=== PATIENT | male | born 2005 | race Two or more races ===

== ENCOUNTER 2023-07-02 16:29 | Emergency (ER) | payer MEDICAID ==
[~2023-07-02] VITALS: Ht 177.8 cm; Wt 90.9 kg
[2023-07-02 16:40] VITALS: TEMP 98.1
[2023-07-02] MEDS: LORazepam 2MG/ML-1ML VIAL IV ONE (16:45)
[2023-07-02 17:00] VITALS: PULSE 99; RESP 14; O2SAT 100
[2023-07-02 17:15] LABS: Basophils # (auto) 0.1 10 ^3/uL (0-0.2); Basophils % (auto) 0.9 % (0.0-2.0); Eosinophils # (auto) 0.2 10 ^3/uL (0-0.8); Hematocrit 50.1 % (41.0-53.0); Hemoglobin 16.4 g/dL (13.5-17.5); Lymphocytes # (auto) 2.3 10 ^3/uL (0.4-5.4); Lymphocytes % (auto) 35.6 % (10.0-50.0); Mean Corpuscular Hemoglobin 29.8 pg (28.0-32.0); Mean Corpuscular Hgb Conc. 32.7 g/dL (32.0-36.0); Mean Corpuscular Volume 91.3 fL (80.0-100.0); Monocytes # (auto) 0.5 10 ^3/uL (0-1.3); Monocytes % (auto) 8.1 % (0.0-12.0); Neutrophils # (auto) 3.4 10 ^3/uL (1.6-8.6); Neutrophils % (auto) 52.4 % (37.0-80.0); Nucleated Red Blood Cells % 0.3 %; Red Blood Cells 5.49 10^6/uL (4.5-5.90); Red Cell Distribution Width 12.9 % (11.8-14.3); White Blood Cell 6.5 10^3/uL (4.4-10.8)
[2023-07-02 17:42] LABS: Chloride 106 mmol/L (98-107); Sodium 140 mmol/L (136-145)
[2023-07-02 17:43] LABS: Anion Gap 6 (5-15); Calcium 10.1 mg/dL (8.5-10.1); Carbon Dioxide 28 mmol/L (20-30)
[2023-07-02 17:48] LABS: BUN/Creatinine Ratio 12.2 (10.0-20.0); Blood Urea Nitrogen 10 mg/dL (9-23); Glucose 99 mg/dL (74-106)
[2023-07-02 18:20] VITALS: BP 106/79; PULSE 100; RESP 19; O2SAT 95
== END 2023-07-02 18:39 | disposition home or self-care (01) ==
LOC: ER 16:29
DX: G40.909 Epilepsy, unspecified, not intractable, without status epilepticus (principal)
CPT/HCPCS: 36415; 80048; 85025

== ENCOUNTER 2024-01-26 14:09 | Emergency (ER) | payer MEDICAID ==
[~2024-01-26] VITALS: Ht 172.7 cm; Wt 94.5 kg
[2024-01-26 14:50] VITALS: PULSE 96; RESP 13; O2SAT 99
[2024-01-26] MEDS: SODIUM CHLORIDE 0.9% 1,000 ML IV ONE ×2 (15:39)
--- NOTE | 2024-01-26 15:43 | ED.PDOC ---
HPI (NEURO) HPI Comments 18 y.o male with PMH of autism, ADHD and seizures, presents to the ED via EMS for an evaluation of a near seizure episode. Patient called 911 earlier today after experiencing an aura, never had a seizure on scene with EMS but upon ED arrival, when questioning patient, he suddenly had a blank stare and became non verbal. At bedside, patient states after calling 911 he is unable to recollect events. Patient has no complaints at this time. Chief Complaint: Seizure Time Seen by MD: 15:05 Primary Care Provider: UNKNOWN Reviewed Notes: Nurses Notes, Production Estimator Notes, Medications, Allergies Information Source: Emergency Med Personnel Mode of Arrival: EMS Severity: Moderate Timing: Hours Duration: Since onset Onset: At rest Symptoms: None Before: Aura During: Awake History of: Seizure Disorder Associated Signs and Symptoms: Aura: Visual Past Medical History PAST MEDICAL HISTORY: Seizures Past Medical History (Other): ADHD and Autism Surgical History: Denies all surgeries Family History Family History: No family hx of Cancer Social History Smoker: Non-Smoker Alcohol: Denies ETOH Use Drugs: Denies Drug Use Lives In: Home Constitutional: denies: chills, diaphoresis, fatigue, fever, malaise, sweats, weakness, others EENTM: denies: blurred vision, double vision, ear bleeding, ear discharge, ear drainage, ear pain, ear ringing, eye pain, eye redness, hearing loss, mouth pain, mouth swelling, nasal discharge, nose bleeding, nose congestion, nose pain, photophobia, tearing, throat pain, throat swelling, voice changes, others Respiratory: denies: cough, hemoptysis, orthopnea, SOB at rest, shortness of breath, SOB with excertion, stridor, wheezing, others Cardiovascular: denies: chest pain, dizzy spells, diaphoresis, Dyspnea on exe rtion, edema, irregular heart beat, left arm pain, lightheadedness, palpitations, PND, syncope, others Gastrointestinal: denies: abdomen distended, abdominal pain, blood streaked bowels, constipated, diarrhea, dysphagia, difficulty swallowing, hematemesis, melena, nausea, poor appetite, poor fluid intake, rectal bleeding, rectal pain, vomiting, others Genitourinary: denies: burning, dysuria, flank pain, frequency, hematuria, incontinence, penile discharge, penile sore, pain, testicle pain, testicle swelling, urgency, others Neurological: denies: dizziness, fainting, headache, left sided numbness, left sided weakness, numbness, paresthesia, pre-existing deficit, right sided numbness, right sided weakness, seizure, speech problems, tingling, tremors, weakness, others Musculoskeletal: denies: back pain, gout, joint pain, joint swelling, muscle pain, muscle stiffness, neck pain, others Integumetry: denies: bruises, change in color, change in hair/nails, dryness, laceration, lesions, lumps, rash, wounds, others Allergic/Immunocompromised: denies: Difficulty Healing, Frequent Infections, Hives, Itching, others Hematologic/Lymphatic: denies: anemia, blood clots, easy bleeding, easy bruising, swollen glands, others Endocrine: denies: excessive hunger, excessive sweating, excessive thirst, excessive urination, flushing, intolerance to cold, intolerance to heat, unexplained weight gain, unexplained weight loss, others Psychiatric: denies: anxiety, bipolar disorder, depression, hopeless, panic disorder, schizophrenia, sleepless, suicidal, others Physical Exam General Appearance: Moderate Distress HEENT: Normal ENT Inspection, Pharynx Normal, TMs Normal Neck: Full Range of Motion, Non-Tender, Normal, Normal Inspection Respiratory: Chest Non-Tender, Lungs Clear, No Accessory Muscle Use, No Respiratory Distress, Normal Breath Sounds Cardiovascular: No Edema, No JVD, No Murmur, No Gallop, Normal Peripheral Pulses, Regular Rate/Rhythm Breast Exam: Deferred Gastrointestinal: No Organomegaly, Non Tender, No Pulsatile Mass, Normal Bowel Sounds, Soft Genitalia: Deferred Pelvic: Deferred Rectal: Deferred Extremities: No calf tenderness, Normal capillary refill, Normal inspection, Normal range of motion, Non-tender, No pedal edema Musculoskeletal : Apperance: Normal Neurologic: ordnance technician II-XII nml as Tested, Disoriented, No Motor Deficits, Normal Affect, Normal Mood, No Sensory Deficits Cerebellar Function: NOT DONE Reflexes: NOT DONE Skin: Dry, Normal Color, Warm Peripheral Pulses: 3+ Radial (R), 3+ Radial (L) Lymphatic: No Adenopathy Was a procedure done? Was a procedure done?: No Differential Diagnosis (SZ) Seizure: Psychogenic Seizure, Closed Head Injury, CVA/TIA, Syncope, Encephalopathy, Epilepsy-Break Through, Epilepsy-Status X-Ray, Labs, Meds, VS Vital Signs Date Time Temp Pulse Resp B/P (MAP) Pulse Ox O2 Delivery O2 Flow Rate FiO2 01/26/24 14:50 96 13 116/79 (91) 99 01/26/24 14:50 96 13 99 Room Air* 0 21 01/26/24 14:43 99.0 71 16 119/76 (90) 97 Lab Test 01/26/24 16:05 Range/Units White Blood Count 5.9 4.4-10.8 10^3/uL Red Blood Count 5.64 4.5-5.90 10^6/uL Hemoglobin 17.2 13.5-17.5 g/dL Hematocrit 52.2 41.0-53.0 % Mean Corpuscular Volume 92.5 80.0-100.0 fL Mean Corpuscular Hemoglobin 30.5 28.0-32.0 pg Mean Corpuscular Hemoglobin Concent 32.9 32.0-36.0 g/dL Red Cell Distribution Width 13.4 11.8-14.3 % Platelet Count 71 L 140-450 10^3/uL Mean Platelet Volume 9.5 6.9-10.8 fL Neutrophils (%) (Auto) 54.0 37.0-80.0 % Lymphocytes (%) (Auto) 36.1 10.0-50.0 % Monocytes (%) (Auto) 8.5 0.0-12.0 % Eosinophils (%) (Auto) 0.9 0.0-7.0 % Basophils (%) (Auto) 0.5 0.0-2.0 % Neutrophils # (Auto) 3.2 1.6-8.6 10 ^3/uL Lymphocytes # (Auto) 2.1 0.4-5.4 10 ^3/uL Monocytes # (Auto) 0.5 0-1.3 10 ^3/uL Eosinophils # (Auto) 0.1 0-0.8 10 ^3/uL Basophils # (Auto) 0 0-0.2 10 ^3/uL Nucleated Red Blood Cells 0.4 % Platelet Estimate Pending Sodium Level 137 136-145 mmol/L Potassium Level 4.2 3.5-5.1 mmol/L Chloride Level 107 98-107 mmol/L Carbon Dioxide Level 23 20-31 mmol/L Anion Gap 7 5-15 Blood Urea Nitrogen 9 9-23 mg/dL Creatinine 0.79 0.700-1.30 mg/dL Glomerular Filtration Rate Calc 130 >90 mL/min BUN/Creatinine Ratio 11.4 10.0-20.0 Serum Glucose 91 74-106 mg/dL Calcium Level 10.2 8.7-10.4 mg/dL Current Medications Medications (Trade) Dose Ordered Sig/Brett Route Start Time Stop Time Status Last Admin Sodium Chloride 1,000 ml @ 1,000 mls/hr Q1H ONCE IV 01/26/24 15:45 01/26/24 16:44 DC 01/26/24 15:39 Patient slightly confused. History of seizure. Postictal. Vitals stable. Establish intravenous access. Was given fluids pain Family states that he does take his medication. WBC within normal limits. Hemoglobin within normal limits. CT of the head was not done because clinical examination is pristine along with a having history of seizure no new diagnosis. Explained to the family. Continue cardiac monitoring. Time of 1ST Reevaluation: 15:37 Reevaluation 1ST: Unchanged Patient Education/Counseling: Other Family Education/Counseling: No Family Present Additional Information The following tests were ordered, and results were reviewed by me: LAB Additional Information was gathered from interviewing the following independent historians: Triage nurse and Paramedics I discussed treatment and results with medical personnel and: Family Departure 1 Departure Time of Disposition: 17:12 Impression: Primary Impression: Metabolic encephalopathy Additional Impression: Seizure Disposition: ADMITTED INPATIENT Admit to: Med Surg Condition: Guarded Critical Care Note Critical Care Time?: No Stability Stability form required: No I personally scribed for VINCE SNELL MD ([email or web address]) on 01/26/24 at 15:43. Electronically submitted by Mayela Lowe ([facility]). VINCE SNELL MD Jan 26, 2024 15:43
[2024-01-26 16:32] LABS: Basophils # (auto) 0 10 ^3/uL (0-0.2); Basophils % (auto) 0.5 % (0.0-2.0); Eosinophils # (auto) 0.1 10 ^3/uL (0-0.8); Eosinophils % (auto) 0.9 % (0.0-7.0); Hematocrit 52.2 % (41.0-53.0); Hemoglobin 17.2 g/dL (13.5-17.5); Lymphocytes # (auto) 2.1 10 ^3/uL (0.4-5.4); Lymphocytes % (auto) 36.1 % (10.0-50.0); Mean Corpuscular Hemoglobin 30.5 pg (28.0-32.0); Mean Corpuscular Hgb Conc. 32.9 g/dL (32.0-36.0); Mean Corpuscular Volume 92.5 fL (80.0-100.0); Monocytes # (auto) 0.5 10 ^3/uL (0-1.3); Monocytes % (auto) 8.5 % (0.0-12.0); Neutrophils # (auto) 3.2 10 ^3/uL (1.6-8.6); Nucleated Red Blood Cells % 0.4 %; Platelet Count (auto) 71 10^3/uL (140-450); Red Blood Cells 5.64 10^6/uL (4.5-5.90); Red Cell Distribution Width 13.4 % (11.8-14.3); White Blood Cell 5.9 10^3/uL (4.4-10.8)
[2024-01-26 16:34] LABS: Anion Gap 7 (5-15); Carbon Dioxide 23 mmol/L (20-31); Potassium 4.2 mmol/L (3.5-5.1); Sodium 137 mmol/L (136-145)
[2024-01-26 16:35] LABS: Calcium 10.2 mg/dL (8.7-10.4)
[2024-01-26 16:39] LABS: Glucose 91 mg/dL (74-106)
[2024-01-26 16:40] LABS: BUN/Creatinine Ratio 11.4 (10.0-20.0); Blood Urea Nitrogen 9 mg/dL (9-23); Chloride 107 mmol/L (98-107)
[2024-01-26 17:23] LABS: Urine Bacteria None Seen /hpf (None Seen)
[2024-01-26 17:48] LABS: Urine Blood Negative /uL (Negative); Urine Clarity Turbid (Clear); Urine Color Colorless (Yellow); Urine Protein, UAD Negative (Negative); Urine Sperm PRESENT /hpf (None Seen); Urine Urobilinogen Normal (Negative); Urine WBC <1 /hpf (0 - 3)
[2024-01-26 18:02] LABS: Platelet Estimate Decreased
[2024-01-26 18:47] VITALS: BP 122/73; PULSE 87; RESP 12; O2SAT 97
== END 2024-01-26 19:00 | disposition left against medical advice (07) ==
LOC: EDBD 14:09 → ER 14:09
DX: G93.41 Metabolic encephalopathy (principal); G40.909 Epilepsy, unspecified, not intractable, without status epilepticus
CPT/HCPCS: 36415; 80048; 81001; 85025; 96360; 99283; J7030

== ENCOUNTER 2024-03-17 14:49 | Emergency (ER) | payer MEDICAID ==
[2024-03-17] MEDS: levETIRAcetam 1000 mg/100ml 100 ML IV ONE (15:00)
--- NOTE | 2024-03-17 15:05 | ED.PDOC ---
HPI (NEURO) HPI Comments 18 y.o male with PMHx of autism, ADHD and seizures, presents to the ED via EMS for an evaluation of multiple seizure like activity today. EMS reports per family, patient had a total of 4 seizures today, last one lasted 4 minutes and all were described as tonic clonic. Patient presents to the ED altered under post-ictal state. No other information provided as family is not at the hospital at this time. Time Seen by MD: 15:00 Primary Care Provider: UNKNOWN Reviewed Notes: Nurses Notes, Mastercam Programmer Notes, Medications, Allergies Information Source: Emergency Med Personnel Mode of Arrival: EMS Severity: Moderate Timing: Hours Duration: Since onset Seizure Quality: Tonic-clonic, Mulitple Episodes Seizure Location: Generalized Onset: At rest Circumstances: Spontaneous Before: Normal During: LOC After: Confusion History of: Seizure Disorder Modifying factors: Nothing Associated Signs and Symptoms: Altered Mental Status Past Medical History PAST MEDICAL HISTORY: Seizures Past Medical History (Other): Autism and ADHD Surgical History: Denies all surgeries Family History Family History: No family hx of Cancer Social History Smoker: Non-Smoker Alcohol: Denies ETOH Use Drugs: Denies Drug Use Lives In: Home Unable to Obtain due to: Altered Mental Status Physical Exam General Appearance: Moderate Distress HEENT: Normal ENT Inspection, Pharynx Normal, TMs Normal Neck: Full Range of Motion, Non-Tender, Normal, Normal Inspection Respiratory: Chest Non-Tender, Lungs Clear, No Accessory Muscle Use, No Respiratory Distress, Normal Breath Sounds Cardiovascular: No Edema, No JVD, No Murmur, No Gallop, Normal Peripheral Pulses, Regular Rate/Rhythm Breast Exam: Deferred Gastrointestinal: No Organomegaly, Non Tender, No Pulsatile Mass, Normal Bowel Sounds, Soft Genitalia: Deferred Pelvic: Deferred Rectal: Deferred Extremities: No calf tenderness, Normal capillary refill, No pedal edema Musculoskeletal : Apperance: Normal Neurologic: boilermaker mechanic II-XII nml as Tested, No Motor Deficits, Normal Affect, No Sensory Deficits, Other (Postictal) Cerebellar Function: Normal Reflexes: Normal Skin: Dry, Normal Color, Warm Lymphatic: No Adenopathy EKG EKG : Pulse Rate (adult): 79 Cardiac Rhythm: NSR Was a procedure done? Was a procedure done?: No Differential Diagnosis (SZ) Seizure: Psychogenic Seizure, Syncope, Epilepsy-Break Through, Epilepsy-Status General Weakness: Dehydration X-Ray, Labs, Meds, VS Vital Signs Date Time Temp Pulse Resp B/P (MAP) Pulse Ox O2 Delivery O2 Flow Rate FiO2 03/17/24 15:05 79 Lab Test 03/17/24 15:28 Range/Units White Blood Count 4.8 4.4-10.8 10^3/uL Red Blood Count 5.41 4.5-5.90 10^6/uL Hemoglobin 16.3 13.5-17.5 g/dL Hematocrit 48.2 41.0-53.0 % Mean Corpuscular Volume 89.1 80.0-100.0 fL Mean Corpuscular Hemoglobin 30.2 28.0-32.0 pg Mean Corpuscular Hemoglobin Concent 33.9 32.0-36.0 g/dL Red Cell Distribution Width 12.7 11.8-14.3 % Platelet Count 141 140-450 10^3/uL Mean Platelet Volume 9.0 6.9-10.8 fL Neutrophils (%) (Auto) 58.6 37.0-80.0 % Lymphocytes (%) (Auto) 30.9 10.0-50.0 % Monocytes (%) (Auto) 9.0 0.0-12.0 % Eosinophils (%) (Auto) 0.9 0.0-7.0 % Basophils (%) (Auto) 0.6 0.0-2.0 % Neutrophils # (Auto) 2.8 1.6-8.6 10 ^3/uL Lymphocytes # (Auto) 1.5 0.4-5.4 10 ^3/uL Monocytes # (Auto) 0.4 0-1.3 10 ^3/uL Eosinophils # (Auto) 0 0-0.8 10 ^3/uL Basophils # (Auto) 0 0-0.2 10 ^3/uL Nucleated Red Blood Cells 0.1 % Sodium Level 141 136-145 mmol/L Potassium Level 3.6 3.5-5.1 mmol/L Chloride Level 105 98-107 mmol/L Carbon Dioxide Level 26 20-31 mmol/L Anion Gap 10 5-15 Blood Urea Nitrogen 9 9-23 mg/dL Creatinine 0.87 0.700-1.30 mg/dL Glomerular Filtration Rate Calc 127 >90 mL/min BUN/Creatinine Ratio 10.3 10.0-20.0 Serum Glucose 91 74-106 mg/dL Calcium Level 10.6 H 8.7-10.4 mg/dL IV Hep-Lock was established The CBC and chemistry panel are within normal limits Seizure precautions were placed The patient was being given Dilantin 500 mg IV piggyback The patient was being admitted at this time A neurology consult we obtained. The concern is that the patient has a increased in frequency of seizures The patient was also still postictal We have discussed the findings with the patient's mother and the patient was being admitted. Time of 1ST Reevaluation: 15:01 Reevaluation 1ST: Unchanged Patient Education/Counseling: Other Family Education/Counseling: Diagnosis, Treatment, Prognosis Departure 1 Departure Time of Disposition: 16:12 Impression: Primary Impression: Status epilepticus Disposition: ADMITTED INPATIENT Admit to: [facility] Condition: Fair Critical Care Note Critical Care Time?: No Stability Stability form required: No I personally scribed for RICK ERNANDEZ MD ([email or web address]) on 03/17/24 at 15:05. Electronically submitted by Mayela Lowe ([facility]). RICK ERNANDEZ MD Mar 17, 2024 15:05
[2024-03-17 15:40] LABS: Basophils # (auto) 0 10 ^3/uL (0-0.2); Basophils % (auto) 0.6 % (0.0-2.0); Eosinophils # (auto) 0 10 ^3/uL (0-0.8); Eosinophils % (auto) 0.9 % (0.0-7.0); Hematocrit 48.2 % (41.0-53.0); Hemoglobin 16.3 g/dL (13.5-17.5); Lymphocytes # (auto) 1.5 10 ^3/uL (0.4-5.4); Lymphocytes % (auto) 30.9 % (10.0-50.0); Mean Corpuscular Hemoglobin 30.2 pg (28.0-32.0); Mean Corpuscular Hgb Conc. 33.9 g/dL (32.0-36.0); Mean Corpuscular Volume 89.1 fL (80.0-100.0); Monocytes # (auto) 0.4 10 ^3/uL (0-1.3); Neutrophils # (auto) 2.8 10 ^3/uL (1.6-8.6); Neutrophils % (auto) 58.6 % (37.0-80.0); Nucleated Red Blood Cells % 0.1 %; Platelet Count (auto) 141 10^3/uL (140-450); Red Blood Cells 5.41 10^6/uL (4.5-5.90); Red Cell Distribution Width 12.7 % (11.8-14.3); White Blood Cell 4.8 10^3/uL (4.4-10.8)
[2024-03-17 15:48] LABS: Chloride 105 mmol/L (98-107); Potassium 3.6 mmol/L (3.5-5.1); Sodium 141 mmol/L (136-145)
[2024-03-17 15:49] LABS: Anion Gap 10 (5-15); Carbon Dioxide 26 mmol/L (20-31)
[2024-03-17 15:52] LABS: Calcium 10.6 mg/dL (8.7-10.4)
[2024-03-17 15:54] LABS: BUN/Creatinine Ratio 10.3 (10.0-20.0); Glucose 91 mg/dL (74-106)
[2024-03-17 15:57] LABS: Blood Urea Nitrogen 9 mg/dL (9-23)
[2024-03-17 16:13] VITALS: PULSE 86; RESP 12; O2SAT 95
[2024-03-17] MEDS: PHENYTOIN IV DILANTIN 500 MG in SODIUM CHL 0.9% 100 ML IV ONE (17:00)
--- NOTE | 2024-03-17 18:16 | ECG ---
[facility] Test Date: 2024-03-17 Test Time: 14:55:37 Pat Name: ZACHERY AMBROSE Department: er Room: Gender: M Utility Hand: kandy : 2005 Requested By: EMERGENCY EMERGENCY Order Number: [id number] Reading MD: Measurements Intervals [place] Rate: 79 P: 37 TN: 161 QRS: 81 QRSD: 96 T: 37 QT: 344 QTc: 395 Interpretive Statements Sinus rhythm ST elevation suggests acute pericarditis Please click the below link to view image of tracing.
[2024-03-17 18:24] VITALS: BP 111/66; PULSE 99; RESP 16; O2SAT 94
== END 2024-03-17 18:56 | disposition home or self-care (01) ==
LOC: EDBD 14:49 → ER 14:49
DX: G40.901 Epilepsy, unspecified, not intractable, with status epilepticus (principal); Z79.899 Other long term (current) drug therapy
CPT/HCPCS: 36415; 80048; 85025; 93005; 96365; 99285; J1165; J1953

== ENCOUNTER 2024-05-03 13:33 | Emergency (ER) | payer MEDICAID ==
[~2024-05-03] VITALS: Ht 170.2 cm; Wt 88.5 kg
--- NOTE | 2024-05-03 13:48 | ED.PDOC ---
HPI (NEURO) HPI Comments 18-year-old male brought in by EMS presents s/p seizure activity. Patients mother reports that they were at [facility] walking the store when patient started to daze off per mother. Patients mother reports that patient then fell and hit his head on the shelving in [facility] and then his body hit the floor. Mother reports that patients last seizure was "months ago". Patient was given 5mg of Versed and placed on nasal cannula O2. Mother reports that patient takes XCorpi for his seizures. PMHx: High Functioning Autism, Seizures PSHx: Tonsillectomy SHx: Denies HPI: Poor Historian. REVIEW OF SYSTEMS: CONSTITUTIONAL: Denies acute: fever, diaphoresis, chills, HEAD: Denies acute: headache, photophobia Eyes: Denies acute: Double vision, vision loss, eye pain, eye discharge. EARS: Denies acute: tinnitus, hearing loss, ear discharge, ear pain, THROAT: Denies acute: sore throat, swelling, difficulty swallowing , pain with swallowing, change in voice. NECK: Denies acute: neck pain, neck swelling, stiff neck. HEART: Denies acute : chest pain, palpitations, LUNGS: Denies acute: SOB, wheezing, cough, hemoptysis ABDOMEN: Denies acute: abdominal pain, Nausea, Vomiting, diarrhea, melena , hematemesis, hematochezia SKIN: Denies acute: rash, redness, lesions, itchiness. EXTREMITIES: Denies acute: calf pain, numbness, tingling, weakness, denies pain in extremity. Denies acute: Low back pain. Neuro: Denies acute: focal neurological deficit, motor or sensory focal neurological deficit, change in mental status, loss of bowel or bladder function, cauda equina like symptoms. : Denies acute: dysuria, hematuria, flank pain, increase in urinary frequency. PSYCH: Denies acute: hallucination, suicidal ideation, homicidal ideation. PHYSICAL EXAM: General: no acute distress, awake and alert. Head: normocephalic, atraumatic. Neck: supple, trachea is midline, no swelling. Throat: Normal phonation. Eyes:, no erythema, no purulent discharge, no proptosis, no icterus. Heart: regular rate, regular rhythm, no significant murmur appreciated. Lungs: no apparent respiratory distress, No wheezing, no rhonchi, no crackles. No stridors Clear to auscultation bilaterally. Abdomen: non tender to palpation, non distended, soft, no guarding, no rebound, + bowel sounds. Neuro: Patient received Versed 5 mg IM in route, patient appears sleepy under the influence of that drug. Awake, Alert, oriented to name, follows commands Skin: no petechia, no purpura, no cyanosis, non-pale, not jaundice. Lower extremities: --no - Pitting edema no deformity, no focal swelling, no calf TTP. Makes eye contact. moves all four extremities. Face: no apparent facial droop. ED COURSE: Chief Complaint: Seizure Time Seen by MD: 13:38 Primary Care Provider: UNKNOWN Reviewed Notes: Nurses Notes, Medications, Allergies Information Source: Relative (Mother), Emergency Med Personnel Mode of Arrival: EMS Severity: Moderate Past Medical History PAST MEDICAL HISTORY: Seizures Past Medical History (Other): Autism Surgical History: Denies all surgeries Family History Family History: No family hx of Cancer Social History Smoker: Non-Smoker Alcohol: Denies ETOH Use Drugs: Denies Drug Use Lives In: Home Was a procedure done? Was a procedure done?: No Differential Diagnosis (SZ) Seizure: Other (SEIZUREDDX include not limited to CVA, cerebellar ischemia/infarct, carotid stenosis, vertebral/carotid artery dissection,, vertebrobasillary insufficiency, Intracranial mass/infection/bleed, enceph alopathy, elctrolyte abnormality, thyroid disease, multiple sclerosis, hypoglycemia, drug toxicity, cardiac arrhythmia, sub-theraputic anti-convulsion medications, known seizure disorder, pseudo-seizure.) X-Ray, Labs, Meds, VS Vital Signs Date Time Temp Pulse Resp B/P (MAP) Pulse Ox O2 Delivery O2 Flow Rate FiO2 05/03/24 16:18 97.9 82 15 106/64 (78) 98 97.9 05/03/24 14:08 98.3 78 18 123/77 (92) 98 98.3 05/03/24 14:08 71 18 98 Room Air* 0 21 05/03/24 13:41 98.9 91 20 118/77 (91) 98 98.9 Lab Test 05/03/24 15:19 05/03/24 14:06 Range/Units Urine Color Dark yellow Yellow Urine Clarity Ex.turbid Clear Urine pH 8.0 5.0-9.0 Urine Specific [place] 1.026 1.001-1.035 Urine Protein Trace H Negative Urine Ketones Negative Negative Urine Blood Negative Negative /uL Urine Nitrite Negative Negative Urine Bilirubin Negative Negative Urine Urobilinogen Normal Negative mg/dL Urine Leukocyte Esterase Negative Negative /uL Urine RBC 1 0 - 3 /hpf Urine Microscopic WBC 0-3 /HPF Urine Squamous Epithelial Cells None seen <5 /hpf Urine Amorphous Crystals Few None Seen /hpf Urine Bacteria None seen None Seen /hpf Urine Glucose Normal Normal mg/dL White Blood Count 4.9 4.4-10.8 10^3/uL Red Blood Count 5.25 4.5-5.90 10^6/uL Hemoglobin 15.8 13.5-17.5 g/dL Hematocrit 48.0 41.0-53.0 % Mean Corpuscular Volume 91.4 80.0-100.0 fL Mean Corpuscular Hemoglobin 30.1 28.0-32.0 pg Mean Corpuscular Hemoglobin Concent 32.9 32.0-36.0 g/dL Red Cell Distribution Width 12.9 11.8-14.3 % Platelet Count 126 L 140-450 10^3/uL Mean Platelet Volume 9.0 6.9-10.8 fL Neutrophils (%) (Auto) 52.0 37.0-80.0 % Lymphocytes (%) (Auto) 35.4 10.0-50.0 % Monocytes (%) (Auto) 9.6 0.0-12.0 % Eosinophils (%) (Auto) 2.5 0.0-7.0 % Basophils (%) (Auto) 0.5 0.0-2.0 % Neutrophils # (Auto) 2.5 1.6-8.6 10 ^3/uL Lymphocytes # (Auto) 1.7 0.4-5.4 10 ^3/uL Monocytes # (Auto) 0.5 0-1.3 10 ^3/uL Eosinophils # (Auto) 0.1 0-0.8 10 ^3/uL Basophils # (Auto) 0 0-0.2 10 ^3/uL Nucleated Red Blood Cells 0.1 % Sodium Level 142 136-145 mmol/L Potassium Level 3.8 3.5-5.1 mmol/L Chloride Level 105 98-107 mmol/L Carbon Dioxide Level 27 20-31 mmol/L Anion Gap 10 5-15 Blood Urea Nitrogen 13 9-23 mg/dL Creatinine 0.90 0.700-1.30 mg/dL Glomerular Filtration Rate Calc 125 >90 mL/min BUN/Creatinine Ratio 14.4 10.0-20.0 Serum Glucose 94 74-106 mg/dL Lactic Acid Level 1.6 0.4-2.0 mmol/L Calcium Level 9.8 8.7-10.4 mg/dL Magnesium Level 2.0 1.6-2.6 mg/dL Total Bilirubin 0.3 0.2-1.0 mg/dL Aspartate Amino Transferase (AST) 20 13-40 U/L Alanine Aminotransferase (ALT) 25 7-40 U/L Alkaline Phosphatase 95 46-116 U/L Creatine Kinase 85 46-171 U/L Troponin I High Sensitivity < 3 L </=54 ng/L Total Protein 7.0 5.7-8.2 g/dL Albumin 4.9 H 3.2-4.8 g/dL PATIENT: JOHN AMBROSECCT: [id number]: [id number] : 2005 LOC: ER ROOM / BED: / AGE / SEX: 18 / M ADM STATUS: REG ER SERVICE 1343 ORDERING PHYSICIAN: TRACIE ABBASI DO PROCEDURE(s): HWOCT - HEAD WITHOUT CONTRAST REASON: seizure, head injury ORDER NUMBER(s): [id number], ACCESSION NUMBER(s): [id number] EXAM: CT HEAD WITHOUT CONTRAST HISTORY: seizure, head injury COMPARISON: CT scan of the head dated 01/04/2024 TECHNIQUE: Noncontrast axial CT images of the head were performed. Sagittal and coronal reformatted images were obtained. This CT exam was performed using 1 or more of the following dose reduction techniques: Automated exposure control, adjustment of the mA and/or kv according to patient size, or the use of iterative reconstruction techniques. Radiation Dose: CTDI volume is 68.28 mGy. Dose-length product is 1277.0 mGy*cm FINDINGS: No intracranial hemorrhage, mass, midline shift, hydrocephalus, or evidence of acute large vessel infarct. There is a tiny cavum septum pellucidum. There is a small mucous retention cyst in the left maxillary sinus. The bilateral mastoid air cells and middle ear spaces are clear. No cranial fracture or scalp edema. IMPRESSION: No acute intracranial process. ATED BY: CLARE FUENTES MD DICTATED DATE/TIME: 05/03/241416 SIGNED BY: CLARE FUENTES MD SIGNED DATE/TIME: 05/03/241416 PATIENT: JOHN AMBROSECCT: [id number] UNIT: [id number] : 2005 LOC: ER ROOM / BED: / AGE / SEX: 18 / M ADM STATUS: REG ER SERVICE 1343 ORDERING PHYSICIAN: TRACIE ABBASI DO PROCEDURE(s): CS2 - CERVICAL WITHOUT CONTRAST REASON: seizure, head injury ORDER NUMBER(s): [id number], ACCESSION NUMBER(s): [id number] EXAM: CT CERVICAL WITHOUT CONTRAST INDICATION: seizure, head injury EXAM DATE: 05/03/2024 01:47 PM COMPARISON: None TECHNIQUE: Noncontrast axial CT images of the cervical spine were performed. Sagittal and coronal reformatted images were obtained. Radiation Dose Information: CT Dose: CTDI volume is 27.91 mGy. Dose-length product is 639.83 mGy*cm FINDINGS: No fracture or listhesis of the cervical spine. No significant degenerative changes, spinal canal stenosis, or neural foraminal stenosis at any level in the cervical spine. There is mild bales tonsillar hypertrophy without significant airway narrowing. IMPRESSION: No fracture of the cervical spine. ATED BY: CLARE FUENTES MD DICTATED DATE/TIME: 05/03/241413 SIGNED BY: CLARE FUENTES MD SIGNED DATE/TIME: 05/03/241413 PATIENT: SOHAIL AMBROSET: [id number] UNIT: [id number] : 2005 LOC: ER ROOM / BED: / AGE / SEX: 18 / M ADM STATUS: REG ER SERVICE 1345 ORDERING PHYSICIAN: TRACIE ABBASI DO PROCEDURE(s): CXRP - CHEST PORTABLE REASON: KATLIN ORDER NUMBER(s): [id number], ACCESSION NUMBER(s): [id number] EXAM: XY CHEST PORTABLE HISTORY: SZ COMPARISON: None TECHNIQUE: Portable AP view of the chest was performed. FINDINGS: Lung volumes are low. No pneumothorax, consolidative infiltrates, or pulmonary edema. The heart is not enlarged. IMPRESSION: No acute intrathoracic process. Examination limited by low lung volumes. ATED BY: CLARE FUENTES MD DICTATED DATE/TIME: 05/03/241406 SIGNED BY: CLARE FUENTES MD SIGNED DATE/TIME: 05/03/241406 Time of 1ST Reevaluation: 14:08 Reevaluation 1ST: Unchanged Time of 2ND Reevaluation: 15:46 Reevaluation 2ND: Resolved Patient Education/Counseling: Diagnosis, Treatment Family Education/Counseling: Diagnosis, Treatment Comments Patient presented with the above HPI.----seizure closed head injury--workup was initiated. patient was found with the above mentioned diagnosis. the following medications were ordered: please refer to order lists of meds and tests obtained by myself Dr. Abbasi. Patient ED course and VS have been stabilized. Patient has been reassessed in the ED and remained in a stable condition. Pertinent incidental findings were discussed with the patient and/or family. Patient/family voices understanding and is agreeable with plan. Patient has been observed in the ED adequate length of time to insure improvement/stability. Escalation of care considered: Consideration of escalation to observation or admission Patient was DISCHARGED home in a stable condition. All the reports of any imaging studies that were ordered by myself were reviewed by myself. Departure 1 Departure Time of Disposition: 15:47 Impression: Primary Impression: Seizure Additional Impression: Closed head injury Disposition: 01 HOME / SELF CARE / HOMELESS Condition: Stable Additional Instructions: Additional discharge instructions: You MUST follow-up with your primary care/family doctor in 1 to 2 days. If you are unable to see your primary care/family doctor, please return to our emergency room for re-assessment and re-evaluation in 1 to 2 days. Return to the emergency room here in our facility or to the nearest ER [facility] if your symptoms change or worsen. CONSULTATIONS: you MUST Follow-up for consultation as soon as possible with: -urology in 1-2 days. Please call for appointment. You MUST call the consultants office yourself to make an appointment. You may need to arrange that through your insurance and/or your primary/family doctor. If you are unable to see the solution consultant in 1 to 2 days, you must return to our emergency room (or any other ER of your choice) for re-assessment and re- evaluation. Adequate fluid hydration. Seizure precautions. Below is a copy of your imaging studies for follow up: [place] [address] Ph: [phone] DIAGNOSTIC IMAGING Diagnostic Imaging Report : [id number] Signed PATIENT: ZACHERY AMBROSE ACCT: [id number] UNIT: [id number] : 2005 LOC: ER ROOM / BED: / AGE / SEX: 18 / M ADM STATUS: REG ER SERVICE 1343 ORDERING PHYSICIAN: TRACIE ABBASI DO PROCEDURE(s): HWOCT - HEAD WITHOUT CONTRAST REASON: seizure, head injury ORDER NUMBER(s): [id number], ACCESSION NUMBER(s): [id number] EXAM: CT HEAD WITHOUT CONTRAST HISTORY: seizure, head injury COMPARISON: CT scan of the head dated 01/04/2024 TECHNIQUE: Noncontrast axial CT images of the head were performed. Sagittal and coronal reformatted images were obtained. This CT exam was performed using 1 or more of the following dose reduction techniques: Automated exposure control, adjustment of the mA and/or kv according to patient size, or the use of iterative reconstruction techniques. Radiation Dose: CTDI volume is 68.28 mGy. Dose-length product is 1277.0 mGy*cm FINDINGS: No intracranial hemorrhage, mass, midline shift, hydrocephalus, or evidence of acute large vessel infarct. There is a tiny cavum septum pellucidum. There is a small mucous retention cyst in the left maxillary sinus. The bilateral mastoid air cells and middle ear spaces are clear. No cranial fracture or scalp edema. IMPRESSION: No acute intracranial process. ATED BY: CLARE FUENTES MD DICTATED DATE/TIME: 05/03/241416 SIGNED BY: CLARE FUENTES MD SIGNED DATE/TIME: 05/03/241416 CC: Discharged With: Self, Relative (Mother) Critical Care Note Critical Care Time?: No I personally scribed for TRACIE ABBASI DO ([email or web address]) on 05/03/24 at 13:48. Electronically submitted by Henrry Choe ([email or web address]). I personally scribed for TRACIE ABBASI DO ([email or web address]) on 05/03/24 at 14:25. Electronically submitted by Henrry Choe ([email or web address]). TRACIE ABBASI DO May 03, 2024 13:48
[2024-05-03] MEDS: SODIUM CHLORIDE 0.9% 1,000 ML IV ONE (14:04)
[2024-05-03 14:08] VITALS: PULSE 71; RESP 18; O2SAT 98
--- NOTE | 2024-05-03 14:10 | DVH ---
EXAM: XY CHEST PORTABLE HISTORY: SZ COMPARISON: None TECHNIQUE: Portable AP view of the chest was performed. FINDINGS: Lung volumes are low. No pneumothorax, consolidative infiltrates, or pulmonary edema. The h eart is not enlarged. IMPRESSION: No acute intrathoracic process. Examination limited by low lung volumes.
--- NOTE | 2024-05-03 14:17 | DVH ---
EXAM: CT CERVICAL WITHOUT CONTRAST INDICATION: seizure, head injury EXAM DATE: 05/03/2024 01:47 PM COMPARISON: None TECHNIQUE: Noncontrast axial CT images of the cervical spine were performed. Sagittal and coronal ref ormatted images were obtained. Radiation Dose Information: CT Dose: CTDI volume is 27.91 mGy. Dose-length product is 639.83 mGy*cm FINDINGS: No fracture or listhesis of the cervical spine. No significant degenerative changes, spinal canal albino nosis, or neural foraminal stenosis at any level in the cervical spine. There is mild bales tonsillar h ypertrophy without significant airway narrowing. IMPRESSION: No fracture of the cervical spine.
--- NOTE | 2024-05-03 14:19 | DVH ---
EXAM: CT HEAD WITHOUT CONTRAST HISTORY: seizure, head injury COMPARISON: CT scan of the head dated 01/04/2024 TECHNIQUE: Noncontrast axial CT images of the head were performed. Sagittal and coronal reformatted i mages were obtained. This CT exam was performed using 1 or more of the following dose reduction techn iques: Automated exposure control, adjustment of the mA and/or kv according to patient size, or the u se of iterative reconstruction techniques. Radiation Dose: CTDI volume is 68.28 mGy. Dose-length product is 1277.0 mGy*cm FINDINGS: No intracranial hemorrhage, mass, midline shift, hydrocephalus, or evidence of acute large vessel infarct. There is a tiny cavum septum pellucidum. There is a small mucous retention cyst in th e left maxillary sinus. The bilateral mastoid air cells and middle ear spaces are clear. No cranial f racture or scalp edema. IMPRESSION: No acute intracranial process.
[2024-05-03 14:21] LABS: Basophils # (auto) 0 10 ^3/uL (0-0.2); Basophils % (auto) 0.5 % (0.0-2.0); Eosinophils # (auto) 0.1 10 ^3/uL (0-0.8); Eosinophils % (auto) 2.5 % (0.0-7.0); Hemoglobin 15.8 g/dL (13.5-17.5); Lymphocytes # (auto) 1.7 10 ^3/uL (0.4-5.4); Lymphocytes % (auto) 35.4 % (10.0-50.0); Mean Corpuscular Hemoglobin 30.1 pg (28.0-32.0); Mean Corpuscular Hgb Conc. 32.9 g/dL (32.0-36.0); Mean Corpuscular Volume 91.4 fL (80.0-100.0); Monocytes # (auto) 0.5 10 ^3/uL (0-1.3); Monocytes % (auto) 9.6 % (0.0-12.0); Neutrophils # (auto) 2.5 10 ^3/uL (1.6-8.6); Nucleated Red Blood Cells % 0.1 %; Platelet Count (auto) 126 10^3/uL (140-450); Red Blood Cells 5.25 10^6/uL (4.5-5.90); Red Cell Distribution Width 12.9 % (11.8-14.3); White Blood Cell 4.9 10^3/uL (4.4-10.8)
[2024-05-03 14:32] LABS: Alanine Aminotransferase 25 U/L (7-40); Albumin 4.9 g/dL (3.2-4.8); Alkaline Phosphatase 95 U/L (46-116); Anion Gap 10 (5-15); Aspartate Aminotransferase 20 U/L (13-40); BUN/Creatinine Ratio 14.4 (10.0-20.0); Bilirubin, Total 0.3 mg/dL (0.2-1.0); Blood Urea Nitrogen 13 mg/dL (9-23); Calcium 9.8 mg/dL (8.7-10.4); Carbon Dioxide 27 mmol/L (20-31); Chloride 105 mmol/L (98-107); Creatine Kinase IFCC 85 U/L (46-171); Glucose 94 mg/dL (74-106); Potassium 3.8 mmol/L (3.5-5.1); Sodium 142 mmol/L (136-145)
[2024-05-03 15:53] LABS: Urine Bacteria None Seen /hpf (None Seen)
[2024-05-03 16:05] LABS: Urine Amorphous Crystal FEW /hpf (None Seen); Urine Blood Negative /uL (Negative); Urine Clarity Ex.Turbid (Clear); Urine Protein, UAD TRACE (Negative); Urine Specific Gravity 1.026 (1.001-1.035); Urine Squamous Epithelial Cell None Seen /hpf (<5); Urine Urobilinogen Normal (Negative)
[2024-05-03 16:08] LABS: Urine Color DARK YELLOW (Yellow)
[2024-05-03 16:18] VITALS: BP 106/64; PULSE 82; RESP 15; TEMP 97.9; O2SAT 98
== END 2024-05-03 17:34 | disposition home or self-care (01) ==
LOC: EDBD 13:33 → ER 13:44
DX: S09.90XA Unspecified injury of head, initial encounter (principal); R56.9 Unspecified convulsions; Z90.89 Acquired absence of other organs; X58.XXXA Exposure to other specified factors, initial encounter; Y93.89 Activity, other specified; Y92.89 Other specified places as the place of occurrence of the external cause; Y99.8 Other external cause status
CPT/HCPCS: 36415; 70450; 71045; 72125; 80053; 81001; 82550; 83605; 83735; 84484; 85025; 96360; 96361; 99284; J7030

== ENCOUNTER 2024-09-21 14:15 | Emergency (ER) | payer MEDICAID ==
[~2024-09-21] VITALS: Ht 177.8 cm; Wt 59.0 kg
[2024-09-21 14:55] VITALS: PULSE 95; RESP 16; O2SAT 98
[2024-09-21 15:23] LABS: Hematocrit 44.1 % (41.0-53.0); Hemoglobin 15.1 g/dL (13.5-17.5); Mean Corpuscular Hemoglobin 30.7 pg (28.0-32.0); Mean Corpuscular Volume 89.3 fL (80.0-100.0); Nucleated Red Blood Cells % 0.1 %
[2024-09-21 15:42] LABS: Alanine Aminotransferase 26 U/L (7-40); Albumin 4.8 g/dL (3.2-4.8); Alkaline Phosphatase 89 U/L (46-116); Anion Gap 9 (5-15); BUN/Creatinine Ratio 16.5 (10.0-20.0); Blood Urea Nitrogen 14 mg/dL (9-23); Calcium 9.3 mg/dL (8.7-10.4); Carbon Dioxide 28 mmol/L (20-31); Chloride 106 mmol/L (98-107); Glucose 104 mg/dL (74-106); Lipase 38 U/L (12-53); Potassium 3.6 mmol/L (3.5-5.1); Sodium 143 mmol/L (136-145); Total Protein 6.5 g/dL (5.7-8.2)
[2024-09-21] MEDS: PANTOPRAZOLE 40 MG/10 ML VIAL INJ IV ONE (15:42)
[2024-09-21] MEDS: ONDANSETRON HCL 4 MG/2 ML VIAL IV ONE (15:42)
[2024-09-21] MEDS: DONNATAL 5ml ORAL Elix (BELLADONNA ALK-PHENOBARB) PO ONE (15:42)
[2024-09-21] MEDS: MAALOX PLUS or MAALOX 30 ML PO ONE (15:43)
[2024-09-21] MEDS: SODIUM CHLORIDE 0.9% 1,000 ML IV ONE (15:43)
[2024-09-21] MEDS: LIDOCAINE VISCOUS 2% 15ML UD PO ONE (15:43)
--- NOTE | 2024-09-21 15:49 | ED.PDOC ---
HPI (NEURO) HPI Comments 18 y/o M with h/o epilepsy with aura on cenobamate, high functioning autism and ADHD, in by EMS from home for evaluation of possible syncope and seizure. Mother reports the patient has been complaining of abdominal discomfort since yesterday. Today she noted he was appearing pale and diaphoretic, then appeared to be on the verge of fainting. Mother was able to assist patient to the floor where he had a brief loss of consciousness, then had tonic-clonic seizure activity. Patient was given Versed by EMS EN route to the ED. On arrival to the ED, the patient is alert and states he has been having epigastric discomfort but denies any nausea, vomiting, diarrhea, constipation or dysuria. Mother states he has not had a fever and has been compliant with his antiseizure medications. No other symptoms are reported. Chief Complaint: Seizure Time Seen by MD: 15:20 Primary Care Provider: UNKNOWN Information Source: Relative (Mother) Mode of Arrival: EMS Past Medical History PAST MEDICAL HISTORY: Seizures Past Medical History (Other): high functioning autism, ADHD Surgical History: Tonsillectomy Family History Family History: No family hx of Cancer Social History Smoker: Non-Smoker Alcohol: Denies ETOH Use Drugs: Denies Drug Use Lives In: Home All Other Systems: Reviewed and Negative (Comprehensive systems review obtained and negative except for what is stated in the HPI.) Physical Exam General Appearance: No Apparent Distress, Obese HEENT: PERRL/EOMI, Other (No facial asymmetry. Dry mucous membranes.) Neck: Full Range of Motion, Normal Inspection Respiratory: Lungs Clear, No Accessory Muscle Use, No Respiratory Distress, Normal Breath Sounds Cardiovascular: No Edema, No JVD, Regular Rate/Rhythm Breast Exam: Deferred Gastrointestinal: Non Tender, Soft Genitalia: Deferred Pelvic: Deferred Rectal: Deferred Extremities: Normal inspection, Normal range of motion, Non-tender, No pedal edema Neurologic: Alert (Oriented x4), Normal Affect, Normal Mood, Other (No focal deficit) Cerebellar Function: NOT DONE Reflexes: NOT DONE Skin: Dry, Normal Color, Warm Lymphatic: NOT DONE EKG EKG : Comments Sinus rhythm, rate 79, normal intervals, normal axis, normal QRS, no ST/T changes. Was a procedure done? Was a procedure done?: No Differential Diagnosis (SZ) Seizure: Closed Head Injury, Hypoglycemia, Hyponatremia, Idiopathic, Syncope, Encephalopathy, Epilepsy-Break Through, Epilepsy-Status, Other (Infection such as gastroenteritis or UTI, among other) X-Ray, Labs, Meds, VS Vital Signs Date Time Temp Pulse Resp B/P (MAP) Pulse Ox O2 Delivery O2 Flow Rate FiO2 09/21/24 14:55 95 16 98 Nasal Cannula* 2 28 09/21/24 14:55 98.5 95 16 113/75 (88) 98 98.5 09/21/24 14:32 98.5 109 16 132/83 100 98.5 09/21/24 14:30 79 Lab Test 09/21/24 16:41 09/21/24 16:20 09/21/24 15:08 Range/Units Urine Color Light-orange Yellow Urine Clarity Ex.turbid Clear Urine pH 7.5 5.0-9.0 Urine Specific [place] 1.029 1.001-1.035 Urine Protein Trace H Negative Urine Ketones Negative Negative Urine Blood Negative Negative /uL Urine Nitrite Negative Negative Urine Bilirubin Negative Negative Urine Urobilinogen Normal Negative mg/dL Urine Leukocyte Esterase Negative Negative /uL Urine RBC 1 0 - 3 /hpf Urine WBC Clumps Present None Seen /hpf Urine Microscopic WBC 39 H 0-3 /HPF Urine Squamous Epithelial Cells None seen <5 /hpf Urine Amorphous Crystals Few None Seen /hpf Urine Bacteria None seen None Seen /hpf Urine Glucose Normal Normal mg/dL Urine Opiates Screen Pending Urine Fentanyl Screen Pending Urine Barbiturates Screen Pending Urine Phencyclidine Screen Pending Urine Amphetamines Screen Pending Urine Benzodiazepines Screen Pending Urine Cocaine Screen Pending Urine Cannabinoids Screen Pending Troponin I High Sensitivity < 3 L < 3 L </=54 ng/L White Blood Count 4.7 4.4-10.8 10^3/uL Red Blood Count 4.94 4.5-5.90 10^6/uL Hemoglobin 15.1 13.5-17.5 g/dL Hematocrit 44.1 41.0-53.0 % Mean Corpuscular Volume 89.3 80.0-100.0 fL Mean Corpuscular Hemoglobin 30.7 28.0-32.0 pg Mean Corpuscular Hemoglobin Concent 34.3 32.0-36.0 g/dL Red Cell Distribution Width 12.6 11.8-14.3 % Platelet Count 136 L 140-450 10^3/uL Mean Platelet Volume 9.0 6.9-10.8 fL Neutrophils (%) (Auto) 59.3 37.0-80.0 % Lymphocytes (%) (Auto) 29.4 10.0-50.0 % Monocytes (%) (Auto) 9.0 0.0-12.0 % Eosinophils (%) (Auto) 1.8 0.0-7.0 % Basophils (%) (Auto) 0.5 0.0-2.0 % Neutrophils # (Auto) 2.8 1.6-8.6 10 ^3/uL Lymphocytes # (Auto) 1.4 0.4-5.4 10 ^3/uL Monocytes # (Auto) 0.4 0-1.3 10 ^3/uL Eosinophils # (Auto) 0.1 0-0.8 10 ^3/uL Basophils # (Auto) 0 0-0.2 10 ^3/uL Nucleated Red Blood Cells 0.1 % Sodium Level 143 136-145 mmol/L Potassium Level 3.6 3.5-5.1 mmol/L Chloride Level 106 98-107 mmol/L Carbon Dioxide Level 28 20-31 mmol/L Anion Gap 9 5-15 Blood Urea Nitrogen 14 9-23 mg/dL Creatinine 0.85 0.700-1.30 mg/dL Glomerular Filtration Rate Calc 128 >90 mL/min BUN/Creatinine Ratio 16.5 10.0-20.0 Serum Glucose 104 74-106 mg/dL Calcium Level 9.3 8.7-10.4 mg/dL Total Bilirubin 0.3 0.2-1.0 mg/dL Aspartate Amino Transferase (AST) 22 13-40 U/L Alanine Aminotransferase (ALT) 26 7-40 U/L Alkaline Phosphatase 89 46-116 U/L Total Protein 6.5 5.7-8.2 g/dL Albumin 4.8 3.2-4.8 g/dL Lipase 38 12-53 U/L Current Medications Medications (Trade) Dose Ordered Sig/Brett Route Start Time Stop Time Status Last Admin Sodium Chloride 1,000 ml @ 1,000 mls/hr Q1H ONCE IV 09/21/24 15:30 09/21/24 16:29 DC 09/21/24 15:43 X-Ray, Labs, Meds, VS Comment 18 y/o M with h/o epilepsy with aura on cenobamate, high functioning autism and ADHD, in by EMS from home for evaluation of possible syncope and seizure. Vitals remarkable for transient tachycardia of 109 Exam unremarkable Rhythm strip independently interpreted by me: Sinus rhythm, rate 79, no ectopy. CBC, basic metabolic panel and troponin unremarkable. UA positive for protein WBCs and WBC clumps consistent with possible UTI Patient treated with the following in the ED: 1 L 0.9 normal saline IV bolus, Rocephin 1 g IV On re-evaluation, patient has had no further seizure activity. He declined GI cocktail for treatment of the epigastric discomfort. Abdominal exam was benign. He was at his neurologic baseline according to mother. Hospitalization was considered, however patient had no further seizure activity in the ED and patient stated he was feeling well enough to be discharged home. He has good follow-up with his neurologist, so I feel can be reasonably discharged home with close follow-up with his neurologist. Rx Keflex Time of 1ST Reevaluation: 15:50 Reevaluation 1ST: Improved Patient Education/Counseling: Diagnosis, Treatment, Need For Follow Up Family Education/Counseling: Diagnosis, Treatment, Need For Follow Up Departure 1 Departure Time of Disposition: 17:23 Impression: Primary Impression: Seizure Additional Impression: UTI (urinary tract infection) Qualified Codes: N39.0 - Urinary tract infection, site not specified Disposition: HOME / SELF CARE / HOMELESS Condition: Stable Additional Instructions: Blood tests were unremarkable. Your urine test showed you may have a urine infection. I have prescribed antibiotics. Follow-up with your neurologist in 1-2 days. e-Prescriptions Cephalexin Monohydrate (Cephalexin) 500 Mg Cap 1 CAP PO QID for 10 Days, #40 CAP Prov: BRANDON ZULUAGA MD 09/21/24 Discharged With: Relative (Mother) Critical Care Note Critical Care Time?: No Stability Stability form required: No Heart Score Heart Score: Heart Score Response (Comments) Value History N/A 0 EKG N/A 0 Age N/A 0 Risk Factors N/A 0 Troponin N/A 0 Total 0 I personally scribed for BRANDON ZULUAGA MD ([email or web address]) on 09/21/24 at 15:49. Electronically submitted by Ramon Sharma [email or web address]). BRANDON ZULUAGA MD Sep 21, 2024 15:49
[2024-09-21 15:58] LABS: Bilirubin, Total 0.3 mg/dL (0.2-1.0)
[2024-09-21 17:00] LABS: Urine Amorphous Crystal FEW /hpf (None Seen); Urine Protein, UAD TRACE (Negative); Urine WBC Clumps PRESENT /hpf (None Seen)
[2024-09-21] MEDS ORDERED: CEPH500C PO (17:11)
[2024-09-21 17:15] LABS: Amphetamine Screen, Urine Neg (NEGATIVE); Barbiturate Scree,Urine Neg (NEGATIVE); Benzodiazephine Screen, Urine Pos (NEGATIVE); Cannabinoid Screen, Urine Neg (NEGATIVE); Cocaine Screen, Urine Neg (NEGATIVE); Opiate Scree,Urine Neg (NEGATIVE); Phencyclidine Screen, Urine Neg (NEGATIVE)
[2024-09-21] MEDS: cefTRIAXone 1GM/50ML D5W 50 ML IV ONE (17:22)
[2024-09-21 17:34] VITALS: BP 106/74; PULSE 76; RESP 12; TEMP 98; O2SAT 99
--- NOTE | 2024-09-21 19:00 | ECG ---
[facility] Test Date: 2024-09-21 Test Time: 14:24:15 Pat Name: ZACHERY AMBROSE Department: ED Room: Gender: M [employer] Wel[employer] Apprentice: KANDIS : 2005 Requested By: BRANDON AGUDELO Order Number: [id number] Reading MD: Neo Calixto Measurements Intervals [place] Rate: 79 P: 53 PA: 162 QRS: 25 QRSD: 100 T: 23 QT: 347 QTc: 398 Interpretive Statements Sinus rhythm Electronically Signed On 09-23-2024 22:54:23 PDT by Neo Calixto Please click the below link to view image of tracing.
== END 2024-09-21 17:43 | disposition home or self-care (01) ==
LOC: ER 14:15 → EDBD 14:15 → EDSEX 14:15 → ER 17:43
DX: G40.909 Epilepsy, unspecified, not intractable, without status epilepticus (principal); N39.0 Urinary tract infection, site not specified; F84.0 Autistic disorder; Z90.89 Acquired absence of other organs
CPT/HCPCS: 36415; 80053; 80307; 81001; 82947; 83690; 84484; 85025; 93005; 96361; 96365; 99284; J0696; J7030; J2405; J2470

== ENCOUNTER 2024-10-03 19:48 | Inpatient (IN) | payer MEDICAID ==
[~2024-10-03] VITALS: Ht 175.3 cm; Wt 81.8 kg
[~2024-10-03 19:48] MED LIST: CEPH500C PO
[2024-10-03] MEDS: LORazepam 2MG/ML-1ML VIAL IV ONE (20:42)
[2024-10-03 20:48] VITALS: BP 125/88; TEMP 97.3
[2024-10-03 20:50] VITALS: PULSE 88; RESP 16; O2SAT 97
[2024-10-03 21:00] VITALS: O2SAT 97
--- NOTE | 2024-10-03 21:05 | ED.PDOC ---
HPI (NEURO) HPI Comments 18-year-old male who came to ER via EMS for seizures. Patient accompanied by mother who gives history to us. History of seizures, autism and ADHD. On Cenobamate. Patient was having dinner with the family earlier, which he "zoned out", his head starting to droop, and became unresponsive to verbal stimuli. Last seizure episode was September 21, 2024 Chief Complaint: Seizure Time Seen by MD: 21:04 Primary Care Provider: UNKNOWN Reviewed Notes: Nurses Notes Information Source: Patient Mode of Arrival: EMS Severity: Moderate Dizziness/Weakness Severity: Unable to do activities Headache Severity: Severe Timing: Minutes Duration: Since onset Seizure Quality: Focal Headache Quality: Aching Onset: With light exertion Circumstances: Spontaneous History of: Seizure Disorder Associated Signs and Symptoms: Altered Mental Status Past Medical History PAST MEDICAL HISTORY: Seizures Past Medical History (Other): ADHD, autism Surgical History: Tonsillectomy Family History Family History: No family hx of Cancer Social History Smoker: Non-Smoker Alcohol: Denies ETOH Use Drugs: Denies Drug Use Lives In: Home Unable to Obtain due to: Altered Mental Status, Other (Patient is postictal) Physical Exam General Appearance: No Apparent Distress, Normal HEENT: Normal ENT Inspection, Pharynx Normal, TMs Normal Neck: Full Range of Motion, Non-Tender, Normal, Normal Inspection Respiratory: Chest Non-Tender, Lungs Clear, No Accessory Muscle Use, No Respiratory Distress, Normal Breath Sounds Cardiovascular: No Edema, No JVD, No Murmur, No Gallop, Normal Peripheral Pulses, Regular Rate/Rhythm Breast Exam: Deferred Gastrointestinal: No Organomegaly, Non Tender, No Pulsatile Mass, Normal Bowel Sounds, Soft Genitalia: Deferred Pelvic: Deferred Rectal: Deferred Extremities: No calf tenderness, Normal capillary refill, Normal inspection, Normal range of motion, Non-tender, No pedal edema Musculoskeletal : Apperance: Normal Neurologic: Alert, service loss control consultant II-XII nml as Tested, No Motor Deficits, Normal Affect, Normal Mood, No Sensory Deficits Cerebellar Function: Normal Reflexes: Normal Skin: Dry, Normal Color, Warm Lymphatic: No Adenopathy Was a procedure done? Was a procedure done?: No Differential Diagnosis (SZ) Seizure: Idiopathic, Syncope, Encephalopathy, Epilepsy-Break Through, Epilepsy- Status X-Ray, Labs, Meds, VS Vital Signs Date Time Temp Pulse Resp B/P (MAP) Pulse Ox O2 Delivery O2 Flow Rate FiO2 10/03/24 21:00 97 Nasal Cannula* 4 36 10/03/24 20:50 88 16 97 Nasal Cannula* 4 36 10/03/24 20:48 97.3 98 18 125/88 (100) 97 97.3 10/03/24 19:53 98.2 89 20 123/73 100 98.2 10/03/24 19:49 88 Lab Test 10/03/24 22:55 10/03/24 21:00 Range/Units Urine Color Pending Urine Clarity Pending Urine pH Pending Urine Specific [place] Pending Urine Protein Pending Urine Ketones Pending Urine Blood Pending Urine Nitrite Pending Urine Bilirubin Pending Urine Urobilinogen Pending Urine Leukocyte Esterase Pending Urine RBC Pending Urine Microscopic WBC Pending Urine Squamous Epithelial Cells Pending Urine Bacteria Pending Urine Glucose Pending Urine Opiates Screen Pending Urine Fentanyl Screen Pending Urine Barbiturates Screen Pending Urine Phencyclidine Screen Pending Urine Amphetamines Screen Pending Urine Benzodiazepines Screen Pending Urine Cocaine Screen Pending Urine Cannabinoids Screen Pending White Blood Count 4.6 4.4-10.8 10^3/uL Red Blood Count 5.25 4.5-5.90 10^6/uL Hemoglobin 16.1 13.5-17.5 g/dL Hematocrit 46.4 41.0-53.0 % Mean Corpuscular Volume 88.4 80.0-100.0 fL Mean Corpuscular Hemoglobin 30.6 28.0-32.0 pg Mean Corpuscular Hemoglobin Concent 34.6 32.0-36.0 g/dL Red Cell Distribution Width 12.9 11.8-14.3 % Platelet Count 151 140-450 10^3/uL Mean Platelet Volume 9.1 6.9-10.8 fL Neutrophils (%) (Auto) 47.8 37.0-80.0 % Lymphocytes (%) (Auto) 39.2 10.0-50.0 % Monocytes (%) (Auto) 10.4 0.0-12.0 % Eosinophils (%) (Auto) 2.0 0.0-7.0 % Basophils (%) (Auto) 0.6 0.0-2.0 % Neutrophils # (Auto) 2.2 1.6-8.6 10 ^3/uL Lymphocytes # (Auto) 1.8 0.4-5.4 10 ^3/uL Monocytes # (Auto) 0.5 0-1.3 10 ^3/uL Eosinophils # (Auto) 0.1 0-0.8 10 ^3/uL Basophils # (Auto) 0 0-0.2 10 ^3/uL Nucleated Red Blood Cells 0.1 % Sodium Level 140 136-145 mmol/L Potassium Level 4.1 3.5-5.1 mmol/L Chloride Level 104 98-107 mmol/L Carbon Dioxide Level 26 20-31 mmol/L Anion Gap 10 5-15 Blood Urea Nitrogen 6 L 9-23 mg/dL Creatinine 0.88 0.700-1.30 mg/dL Glomerular Filtration Rate Calc 126 >90 mL/min BUN/Creatinine Ratio 6.8 L 10.0-20.0 Serum Glucose 94 74-106 mg/dL Lactic Acid Level 2.5 *H 0.4-2.0 mmol/L Calcium Level 9.4 8.7-10.4 mg/dL Magnesium Level 2.2 1.6-2.6 mg/dL Total Bilirubin 0.3 0.2-1.0 mg/dL Aspartate Amino Transferase (AST) 26 13-40 U/L Alanine Aminotransferase (ALT) 30 7-40 U/L Alkaline Phosphatase 95 46-116 U/L Total Protein 7.3 5.7-8.2 g/dL Albumin 4.9 H 3.2-4.8 g/dL Current Medications Medications (Trade) Dose Ordered Sig/Brett Route Start Time Stop Time Status Last Admin Lorazepam (Ativan Inj) 1 mg ONCE ONCE IV 10/03/24 20:30 10/03/24 20:31 DC 10/03/24 20:42 Time of 1ST Reevaluation: 21:01 Reevaluation 1ST: Unchanged Patient Education/Counseling: Diagnosis, Treatment Family Education/Counseling: No Family Present Departure 1 Departure Time of Disposition: 23:10 Impression: Primary Impression: Metabolic encephalopathy Additional Impressions: Seizure UTI (urinary tract infection) Dehydration Disposition: ADMITTED INPATIENT Admit to: Med Surg Condition: Guarded Comments 18-year-old male with a history of seizure disorder and autism now had his partial seizure at home . Patient has been lethargic and decreased mental status while observed in the emergency department. Patient was recently treated for UTI. Lab results suggest some dehydration. Patient was given IV fluids and IV Rocephin antibiotics. Patient will need admission for metabolic encephalopathy and seizure and dehydration and UTI Critical Care Note Critical Care Time?: Yes (35 min-critical care time only) Critical care comment: Total critical care time: Approximately 36 minutes Due to a high probability of clinically significant, life threatening deteri oration, the patient required my highest level of preparedness to intervene emergently and I personally spent this critical care time directly and personally managing the patient. This critical care time included obtaining a history; examining the patient; pulse oximetry; ordering and review of studies; arranging urgent treatment with development of a management plan; evaluation of patient's response to treatment; frequent reassessment; and, discussions with other providers. This critical care time was performed to assess and manage the high probability of imminent, life-threatening deterioration that could result in multi-organ phylicia lure. It was exclusive of separately billable procedures and treating other patients. Stability Stability form required: No Heart Score Heart Score: Heart Score Response (Comments) Value History N/A 0 EKG N/A 0 Age N/A 0 Risk Factors N/A 0 Troponin N/A 0 Total 0 I personally scribed for FELICIA HUBBARD MD ([email or web address]) on 10/03/24 at 21:05. Electronically submitted by Dean Azul ([facility]). FELICIA HUBBARD MD Oct 03, 2024 21:05
[2024-10-03 21:37] LABS: Hematocrit 46.4 % (41.0-53.0); Hemoglobin 16.1 g/dL (13.5-17.5); Mean Corpuscular Hemoglobin 30.6 pg (28.0-32.0); Mean Corpuscular Volume 88.4 fL (80.0-100.0); Nucleated Red Blood Cells % 0.1 %
[2024-10-03 21:55] LABS: Alanine Aminotransferase 30 U/L (7-40); Alkaline Phosphatase 95 U/L (46-116); Anion Gap 10 (5-15); BUN/Creatinine Ratio 6.8 (10.0-20.0); Calcium 9.4 mg/dL (8.7-10.4); Carbon Dioxide 26 mmol/L (20-31); Chloride 104 mmol/L (98-107); Glucose 94 mg/dL (74-106); Magnesium 2.2 mg/dL (1.6-2.6); Potassium 4.1 mmol/L (3.5-5.1); Sodium 140 mmol/L (136-145); Total Protein 7.3 g/dL (5.7-8.2)
--- NOTE | 2024-10-03 21:58 | DVH ---
EXAM: CT HEAD WITHOUT CONTRAST INDICATION: ALOC TECHNIQUE: CT of the head without intravenous contrast. Radiation Dose : 1. Head: CT Dose: CTDI volume is 67 mGy. Dose-length product is 1458 mGy*cm The dose indicators for CT are the volume Computed Tomography (CT) Dose Index (CTDIvol) and the Dose Length Product (DLP), and are measured in units of mGy and mGy-cm, respectively. These indicators are not patient dose, but values generated from the CT scanner acquisition factors. The report includes radiation exposure data for exposures received during this examination. COMPARISON: CT HEAD WITHOUT CONTRAST on DOS: 05/03/24 FINDINGS: Suboptimal patient positioning, planes of image acquisition and reformation limit assessment. Brain: No acute hemorrhage, mass effect, or cerebral edema. CSF Spaces: Size and morphology within normal limits. Bones/Soft Tissues: No acute findings. Orbits/Sinuses/Mastoids: Unremarkable as visualized. IMPRESSION: 1. No acute intracranial abnormality. Radiation optimization: All CT scans at this facility use at least one of these dose optimization josé hniques: automated exposure control mA and/or kV adjustment per patient size (includes targeted exam s where dose is matched to clinical indication) or iterative reconstruction.
[2024-10-03 22:04] LABS: Albumin 4.9 g/dL (3.2-4.8); Bilirubin, Total 0.3 mg/dL (0.2-1.0); Blood Urea Nitrogen 6 mg/dL (9-23)
[2024-10-03 22:08] LABS: Lactic Acid w/Reflex 2.5 mmol/L (0.4-2.0)
[2024-10-03] MEDS: SODIUM CHLORIDE 0.9% 1,000 ML IV ONE (23:15)
[2024-10-03 23:18] LABS: Urine Protein, UAD Negative (Negative)
[2024-10-03] MEDS ORDERED: ONDANSETRON HCL 4 MG/2 ML VIAL IV PRN (23:30)
[2024-10-03] MEDS ORDERED: MORPHINE SULFATE INJ 2 MG/ml SYRG IV PRN (23:30)
[2024-10-03] MEDS ORDERED: HYDROcodone-ACET 5/325MG TAB PO PRN (23:30)
[2024-10-03] MEDS ORDERED: ACETAMINOPHEN 325 MG TAB PO PRN (23:30)
[2024-10-03] MEDS ORDERED: NITROGLYCERIN 0.4 MG SL TAB SL PRN (23:30)
[2024-10-03] MEDS ORDERED: DOCUSATE SOD 100 MG CAP PO PRN (23:30)
[2024-10-03] MEDS ORDERED: LORazepam 2MG/ML-1ML VIAL IV PRN (23:30)
--- NOTE | 2024-10-03 23:31 | DVHHP2 ---
History of Present Illness Reason for Visit: Metabolic encephalopathy History of Present Illness The patient is a 18 years old male with past medical history of ADHD, autism, seizures disorder who presented to [facility] ED accompanied by mother for evaluation of seizures activity. As reported, patient was having di nner with the family when he started to drop his head, became unresponsive to verbal stimuli and altered. Last seizure episode was on September 21, 2024. Patient was seen and evaluated in the ED, laboratory data shows WBC 4.6, platelets 151, sodium 140, potassium 4.1, BUN 6, creatinine 0.88, glucose 94, lactic acid 2.5 trending down to 1.3, calcium 9.4, albumin 4.9, blood pressure 125/88, heart rate 88, temperature 97.6 F, O2 saturation 97% on oxygen. Head CT showed no acute intracranial abnormality. On my assessment, patient denied chest pain, no headache, no dizziness, no diaphoresis, no shortness of breath, no nausea, no vomiting, no fever, no chills. Patient was admitted for further evaluation and medical management. Past Medical History Seizures, ADHD, Autism Past Surgical History Tonsillectomy Family History Reviewed, noncontributory to the management of this case. Past Social History The patient lives at home, denies smoking, alcohol or illicit drugs abuse. Review of Systems Constitutional: Yes: Weakness; No: Fever, Chills, Sweats, Malaise, Other Eyes: No: Pain, Vision change, Conjunctivae inflammation, Eyelid inflammation, Other, Redness ENT: No: Ear pain, Ear discharge, Nose pain, Nose discharge, Nose congestion, Mouth pain, Mouth swelling, Throat pain, Throat swelling, Other Respiratory: No: Cough, Dry, Shortness of breath, SOB with excertion, Wheezing, Hemoptysis, Pleuritic Pain, Sputum, Wheezing, Other Cardiovascular: No: Chest Pain, Palpitations, Orthopnea, Paroxysmal Noc. Dyspnea, Edema, Lt Headedness, Other Gastrointestinal: No: Nausea, Vomiting, Abdominal Pain, Diarrhea, Constipation, Melena, Hematochezia, Other Genitourinary: No Dysuria, No Frequency, No Incontinence, No Hematuria, No Retention, No Other Musculoskeletal: No: other, neck pain, shoulder pain, arm pain, back pain, hand pain, leg pain, foot pain Skin: No: Rash, Lesions, Jaundice, Bruising, Other Neurological: Seizures; No: Weakness, Numbness, Incoordination, Change in speech, Confusion, Other Allergies: Coded Allergies: Flu Virus Vaccine (Unverified Allergy, Severe, 07/02/23) Latex (Unverified Allergy, Severe, 07/02/23) Levetiracetam (Verified Allergy, Intermediate, 01/26/24) Exam Vital Signs Vital Signs Date Time Temp Pulse Resp B/P (MAP) Pulse Ox O2 Delivery O2 Flow Rate FiO2 10/03/24 21:00 97 Nasal Cannula* 4 36 10/03/24 20:50 88 16 10/03/24 20:48 97.3 125/88 (100) 97.3 General Appearance: Alert, Oriented X3, Cooperative, No acute distress HEENT: Atraumatic, PERRLA, EOMI, Mucous membr. moist/pink Respiratory: Normal air movement Cardiovascular: Regular rate, Normal S1, Normal S2, No murmurs Abdominal: Normal bowel sounds, Soft, No tenderness, No hepatospenomegaly, No masses Extremities: No clubbing, No cyanosis, No edema, Normal pulses, No tenderness/swelling Skin: No rashes, No breakdown, No significant lesion Neuro: Normal speech, Sensation intact, Cranial nerves 3-12 NL, Reflexes 2+, Other (Generalized weakness) Psych/Mental Status: Mental status NL, Mood NL Labs/Xrays Labs Test 10/03/24 23:09 10/03/24 22:55 10/03/24 21:00 Range/Units Urine Color Colorless Yellow Urine Clarity Clear Clear Urine pH 6.5 5.0-9.0 Urine Specific Tanner 1.009 1.001-1.035 Urine Protein Negative Negative Urine Ketones Negative Negative Urine Blood Negative Negative /uL Urine Nitrite Negative Negative Urine Bilirubin Negative Negative Urine Urobilinogen Normal Negative mg/dL Urine Leukocyte Esterase Negative Negative /uL Urine RBC None seen 0 - 3 /hpf Urine Microscopic WBC < 1 0-3 /HPF Urine Squamous Epithelial Cells None seen <5 /hpf Urine Bacteria None seen None Seen /hpf Urine Glucose Normal Normal mg/dL White Blood Count 4.6 4.4-10.8 10^3/uL Red Blood Count 5.25 4.5-5.90 10^6/uL Hemoglobin 16.1 13.5-17.5 g/dL Hematocrit 46.4 41.0-53.0 % Mean Corpuscular Volume 88.4 80.0-100.0 fL Mean Corpuscular Hemoglobin 30.6 28.0-32.0 pg Mean Corpuscular Hemoglobin Concent 34.6 32.0-36.0 g/dL Red Cell Distribution Width 12.9 11.8-14.3 % Platelet Count 151 140-450 10^3/uL Mean Platelet Volume 9.1 6.9-10.8 fL Neutrophils (%) (Auto) 47.8 37.0-80.0 % Lymphocytes (%) (Auto) 39.2 10.0-50.0 % Monocytes (%) (Auto) 10.4 0.0-12.0 % Eosinophils (%) (Auto) 2.0 0.0-7.0 % Basophils (%) (Auto) 0.6 0.0-2.0 % Neutrophils # (Auto) 2.2 1.6-8.6 10 ^3/uL Lymphocytes # (Auto) 1.8 0.4-5.4 10 ^3/uL Monocytes # (Auto) 0.5 0-1.3 10 ^3/uL Eosinophils # (Auto) 0.1 0-0.8 10 ^3/uL Basophils # (Auto) 0 0-0.2 10 ^3/uL Nucleated Red Blood Cells 0.1 % Sodium Level 140 136-145 mmol/L Potassium Level 4.1 3.5-5.1 mmol/L Chloride Level 104 98-107 mmol/L Carbon Dioxide Level 26 20-31 mmol/L Anion Gap 10 5-15 Blood Urea Nitrogen 6 L 9-23 mg/dL Creatinine 0.88 0.700-1.30 mg/dL Glomerular Filtration Rate Calc 126 >90 mL/min BUN/Creatinine Ratio 6.8 L 10.0-20.0 Serum Glucose 94 74-106 mg/dL Calcium Level 9.4 8.7-10.4 mg/dL Magnesium Level 2.2 1.6-2.6 mg/dL Total Bilirubin 0.3 0.2-1.0 mg/dL Aspartate Amino Transferase (AST) 26 13-40 U/L Alanine Aminotransferase (ALT) 30 7-40 U/L Alkaline Phosphatase 95 46-116 U/L Total Protein 7.3 5.7-8.2 g/dL Albumin 4.9 H 3.2-4.8 g/dL PATIENT: JOHN AMBROSECCT: [id number] UNIT: [id number] : 2005 LOC: ER ROOM / BED: / AGE / SEX: 18 / M ADM STATUS: REG ER SERVICE 53 ORDERING PHYSICIAN: FELICIA HUBBARD MD PROCEDURE(s): HWOCT - HEAD WITHOUT CONTRAST REASON: ALOC ORDER NUMBER(s): [id number], ACCESSION NUMBER(s): [id number] EXAM: CT HEAD WITHOUT CONTRAST INDICATION: ALOC TECHNIQUE: CT of the head without intravenous contrast. Radiation Dose : 1. Head: CT Dose: CTDI volume is 67 mGy. Dose-length product is 1458 mGy*cm The dose indicators for CT are the volume Computed Tomography (CT) Dose Index (CTDIvol) and the Dose Length Product (DLP), and are measured in units of mGy and mGy-cm, respectively. These indicators are not patient dose, but values generated from the CT scanner acquisition factors. The report includes radiation exposure data for exposures received during this examination. COMPARISON: CT HEAD WITHOUT CONTRAST on DOS: 05/03/24 FINDINGS: Suboptimal patient positioning, planes of image acquisition and reformation limit assessment. Brain: No acute hemorrhage, mass effect, or cerebral edema. CSF Spaces: Size and morphology within normal limits. Bones/Soft Tissues: No acute findings. Orbits/Sinuses/Mastoids: Unremarkable as visualized. IMPRESSION: 1. No acute intracranial abnormality. SEPSIS Sepsis Screen Date sepsis recognized/suspect: Oct 03, 2024 Time Sepsis recognized/suspect: 2053 Recent Procedure: No On Antibiotic Therapy: No Respiratory Rate >20: No Heart Rate >90: No Temp<36 C (96.8 F) or >38.3 C: No SBP <90 or MAP <65 mmHG: No New Acute Mental Status Change: No Is the patient on CPAP, BIPAP,: No Physician Orders Electrocardigram (10/03/24 19:55) Drug Screen (10/03/24 20:54) Blood Culture (10/03/24 20:54) Head Without Contrast (10/03/24 20:54) Sodium Chloride 0.9% (10/03/24 23:15) Ceftriaxone 1gm/50ml D5w (Rocephin) (10/03/24 23:15) Vital Signs Date Time Temp Pulse Resp B/P (MAP) Pulse Ox O2 Delivery O2 Flow Rate FiO2 10/03/24 21:00 97 Nasal Cannula* 4 36 10/03/24 20:50 88 16 97 Nasal Cannula* 4 36 10/03/24 20:48 97.3 98 18 125/88 (100) 97 97.3 10/03/24 19:53 98.2 89 20 123/73 100 98.2 10/03/24 19:49 88 Laboratory Tests Test 10/03/24 21:00 10/03/24 23:09 Lactic Acid Level 2.5 mmol/L (0.4-2.0) *H Pending White Blood Count 4.6 10^3/uL (4.4-10.8) Medications Medications Dose Ordered Sig/Brett Route Start Time Stop Time Status Last Admin Dose Admin Lorazepam 1 mg ONCE ONCE IV 10/03/24 20:30 10/03/24 20:31 DC 10/03/24 20:42 1 MG Assessment/Plan Assessment/Plan Metabolic encephalopathy Dehydration Seizure disorder UTI (urinary tract infection) Plan 1. Admit to telemetry unit 2. Breathing treatment 3. Pain control management 4. Management of fluids and electrolytes 5. Consultation for Neurology 6. Diagnostic tests head CT 7. DVT prophylaxis-on SCDs 8. Repeat labs CBC, CMP in a.m. 9. Continue with current medical management 10. Treatment plan discussed with patient/mother and RN. Patient/mother verbalized understanding, but left AMA. Plan discussed with: Patient, Other (RN) Problem List: (1) Metabolic encephalopathy (2) Dehydration (3) Seizure disorder (4) UTI (urinary tract infection) Date of Service: Oct 03, 2024 Billing Provider: GLORIA BANKS DNP Common Visit Codes: [id number] INP/OBS CARE (HIGH) GLORIA BANKS DNP Oct 03, 2024 23:31
[2024-10-03 23:38] LABS: Amphetamine Screen, Urine Neg (NEGATIVE); Barbiturate Scree,Urine Neg (NEGATIVE); Benzodiazephine Screen, Urine Neg (NEGATIVE); Cannabinoid Screen, Urine Neg (NEGATIVE); Cocaine Screen, Urine Neg (NEGATIVE); Opiate Scree,Urine Neg (NEGATIVE); Phencyclidine Screen, Urine Neg (NEGATIVE)
--- NOTE | 2024-10-04 23:57 | ECG ---
[facility] Test Date: 2024-10-03 Test Time: 19:47:35 Pat Name: ZACHERY AMBROSE Department: Room: [address] [place] [address] Gender: M Certified Professional Coder: ABBI : 2005 Requested By: EMERGENCY EMERGENCY Order Number: [id number] Reading MD: Neo Calixto Measurements Intervals [place] Rate: 88 P: 53 CA: 149 QRS: 19 QRSD: 99 T: 34 QT: 326 QTc: 395 Interpretive Statements Sinus rhythm ST elev, probable normal early repol pattern Electronically Signed On 10-05-2024 16:23:18 PDT by Neo Calixto Please click the below link to view image of tracing.
== END 2024-10-04 01:15 | disposition left against medical advice (07) | DRG 53 ==
LOC: ER 19:48 → EDBD 19:48 → OVERFLOW 23:25
PROVIDERS: ADMIT Family Medicine; ATTEND Family Medicine
DX: G40.909 Epilepsy, unspecified, not intractable, without status epilepticus (principal); E86.0 Dehydration; F84.0 Autistic disorder; F90.9 Attention-deficit hyperactivity disorder, unspecified type; N39.0 Urinary tract infection, site not specified; Z88.7 Allergy status to serum and vaccine; Z91.040 Latex allergy status
CPT/HCPCS: 36415; 70450; 80053; 80307; 81001; 83605; 83735; 85025; 87040; 87086; 93005; 96365; 99291; G0378

== ENCOUNTER 2024-10-04 13:51 | Emergency (ER) | payer MEDICAID ==
[~2024-10-04] VITALS: Ht 177.8 cm; Wt 91.0 kg
[2024-10-04] MEDS: LORazepam 2MG/ML-1ML VIAL IV ONE (14:00)
--- NOTE | 2024-10-04 14:05 | ED.PDOC ---
HPI (NEURO) HPI Comments HPI: Poor Historian. 18-year-old male brought in by his mother for evaluation of witnessed seizure in the car. No fall or trauma or injury. Patient was here in the emergency department yesterday for the same thing but left AMA. Patient takes XCORPI for seizure daily by mouth. He took it last night. He went to see his pediatric neurologist Dr. Willingham earlier today to get a refill. Patient was switch this medication approximately two months ago. He is allergic to Keppra. Past Medical History: ADHD, seizure disorder, autism Past Surgical History: Tonsillectomy REVIEW OF SYSTEMS: Review of system is limited given the patient's altered level of consciousness postictal state. History obtained from the mother at bedside. CONSTITUTIONAL: Denies acute: fever, diaphoresis, chills, HEAD: Denies acute: headache, photophobia Eyes: Denies acute: Double vision, vision loss, eye pain, eye discharge. EARS: Denies acute: tinnitus, hearing loss, ear discharge, ear pain, THROAT: Denies acute: sore throat, swelling, difficulty swallowing , pain with swallowing, change in voice. NECK: Denies acute: neck pain, neck swelling, stiff neck. HEART: Denies acute : chest pain, palpitations, LUNGS: Denies acute: wheezing, cough, hemoptysis ABDOMEN: Denies acute: abdominal pain, Nausea, Vomiting, diarrhea, melena , hematemesis, hematochezia SKIN: Denies acute: rash, redness, lesions, itchiness. EXTREMITIES: Denies acute: calf pain, numbness, tingling, weakness, denies pain in extremity. Denies acute: Low back pain. Neuro: Denies acute: focal neurological deficit, motor or sensory focal neurological deficit, confusion, dizziness, loss of bowel or bladder function, cauda equina like symptoms. : Denies acute: dysuria, hematuria, flank pain, increase in urinary frequency. PSYCH: Denies acute: hallucination, suicidal ideation, homicidal ideation. PHYSICAL EXAM: General: -postictal status post seizure Head: normocephalic, atraumatic. Neck: supple, trachea is midline, no swelling. Throat: Eyes:, no erythema, no purulent discharge, no proptosis, no icterus. Heart: regular rate, regular rhythm, no significant murmur appreciated. Lungs: no apparent respiratory distress, No wheezing, no rhonchi, no crackles. No stridors Clear to auscultation bilaterally. Abdomen: non tender to palpation, non distended, soft, no guarding, no rebound, + bowel sounds. Neuro: Postictal after with the seizure here in the ED Skin: no petechia, no purpura, no cyanosis, non-pale, not jaundice. Lower extremities: --no - Pitting edema no deformity, no focal swelling, no calf TTP. Makes eye contact. moves all four extremities. Face: no apparent facial droop. No nuchal rigidity, Kernig's sign, Brudzinski's sign, no meningeal signs. ED COURSE: DISCLAIMER: This medical document was created using an electronic medical record system with voice recognition software and computerized dictation system. Although this document has been carefully reviewed, there might still be some phonetic and typographical errors. Occasional wrong-word or "sound-alike" substitutions may have occurred due to the inherent limitations of voice recognition software. These areas are purely typographical due to imperfections of the software programs and do not reflect any compromise in the patient's medical care. Please read the chart carefully and recognize, using context, where these substitutions have occurred. Chief Complaint: Seizure Time Seen by MD: 14:00 Primary Care Provider: UNKNOWN Reviewed Notes: Allergies Information Source: Relative (Mother) Mode of Arrival: Wheelchair Past Medical History PAST MEDICAL HISTORY: Seizures Surgical History: Tonsillectomy Family History Family History: No family hx of Cancer Social History Smoker: Non-Smoker Alcohol: Denies ETOH Use Drugs: Denies Drug Use Lives In: Home Was a procedure done? Was a procedure done?: No Differential Diagnosis (SZ) Seizure: Other (SEIZUREDDX include not limited to CVA, cerebellar ischemia/infarct, carotid stenosis, vertebral/carotid artery dissection,, ve rtebrobasillary insufficiency, Intracranial mass/infection/bleed, encephalopathy, elctrolyte abnormality, thyroid disease, multiple sclerosis, hypoglycemia, drug toxicity, cardiac arrhythmia, sub-theraputic anti-convulsion medications, known seizure disorder, pseudo-seizure.) X-Ray, Labs, Meds, VS Vital Signs Date Time Temp Pulse Resp B/P (MAP) Pulse Ox O2 Delivery O2 Flow Rate FiO2 10/04/24 17:06 99.2 10/04/24 16:00 76 11 122/65 (84) 98 10/04/24 14:00 98.3 88 16 107/60 (76) 100 98.3 10/04/24 14:00 Non-Rebreather 15 N/A 10/04/24 13:57 98.0 128 15 210/121 100 98.0 Lab Test 10/04/24 15:31 10/04/24 14:20 Range/Units Urine Color Colorless Yellow Urine Clarity Clear Clear Urine pH 8.0 5.0-9.0 Urine Specific [place] 1.009 1.001-1.035 Urine Protein Negative Negative Urine Ketones Negative Negative Urine Blood Negative Negative /uL Urine Nitrite Negative Negative Urine Bilirubin Negative Negative Urine Urobilinogen Normal Negative mg/dL Urine Leukocyte Esterase Negative Negative /uL Urine RBC None seen 0 - 3 /hpf Urine Microscopic WBC 0-3 /HPF Urine Squamous Epithelial Cells None seen <5 /hpf Urine Bacteria None seen None Seen /hpf Urine Glucose Normal Normal mg/dL White Blood Count 4.4 4.4-10.8 10^3/uL Red Blood Count 5.34 4.5-5.90 10^6/uL Hemoglobin 16.3 13.5-17.5 g/dL Hematocrit 47.5 41.0-53.0 % Mean Corpuscular Volume 88.9 80.0-100.0 fL Mean Corpuscular Hemoglobin 30.4 28.0-32.0 pg Mean Corpuscular Hemoglobin Concent 34.2 32.0-36.0 g/dL Red Cell Distribution Width 12.9 11.8-14.3 % Platelet Count 140 140-450 10^3/uL Mean Platelet Volume 8.8 6.9-10.8 fL Neutrophils (%) (Auto) 44.8 37.0-80.0 % Lymphocytes (%) (Auto) 42.3 10.0-50.0 % Monocytes (%) (Auto) 10.1 0.0-12.0 % Eosinophils (%) (Auto) 2.3 0.0-7.0 % Basophils (%) (Auto) 0.5 0.0-2.0 % Neutrophils # (Auto) 2.0 1.6-8.6 10 ^3/uL Lymphocytes # (Auto) 1.9 0.4-5.4 10 ^3/uL Monocytes # (Auto) 0.4 0-1.3 10 ^3/uL Eosinophils # (Auto) 0.1 0-0.8 10 ^3/uL Basophils # (Auto) 0 0-0.2 10 ^3/uL Nucleated Red Blood Cells 0.0 % Sodium Level 141 136-145 mmol/L Potassium Level 3.7 3.5-5.1 mmol/L Chloride Level 106 98-107 mmol/L Carbon Dioxide Level 26 20-31 mmol/L Anion Gap 9 5-15 Blood Urea Nitrogen 8 L 9-23 mg/dL Creatinine 0.86 0.700-1.30 mg/dL Glomerular Filtration Rate Calc 127 >90 mL/min BUN/Creatinine Ratio 9.3 L 10.0-20.0 Serum Glucose 101 74-106 mg/dL Lactic Acid Level 2.0 0.4-2.0 mmol/L Calcium Level 9.8 8.7-10.4 mg/dL Magnesium Level 2.3 1.6-2.6 mg/dL Total Bilirubin 0.3 0.2-1.0 mg/dL Aspartate Amino Transferase (AST) 26 13-40 U/L Alanine Aminotransferase (ALT) 33 7-40 U/L Alkaline Phosphatase 91 46-116 U/L Troponin I High Sensitivity < 3 L </=54 ng/L Total Protein 7.6 5.7-8.2 g/dL Albumin 4.9 H 3.2-4.8 g/dL YESTERDAYS SCANS [place] [address] Ph: [phone] DIAGNOSTIC IMAGING Diagnostic Imaging Report : [id number] Signed PATIENT: ZACHERY AMBROSE ACCT: [id number] UNIT: [id number] : 2005 LOC: ER ROOM / BED: / AGE / SEX: 18 / M ADM STATUS: REG ER SERVICE 53 ORDERING PHYSICIAN: FELICIA HUBBARD MD PROCEDURE(s): HWOCT - HEAD WITHOUT CONTRAST REASON: ALOC ORDER NUMBER(s): [id number], ACCESSION NUMBER(s): [id number] EXAM: CT HEAD WITHOUT CONTRAST INDICATION: ALOC TECHNIQUE: CT of the head without intravenous contrast. Radiation Dose : 1. Head: CT Dose: CTDI volume is 67 mGy. Dose-length product is 1458 mGy*cm The dose indicators for CT are the volume Computed Tomography (CT) Dose Index (CTDIvol) and the Dose Length Product (DLP), and are measured in units of mGy and mGy-cm, respectively. These indicators are not patient dose, but values generated from the CT scanner acquisition factors. The report includes radiation exposure data for exposures received during this examination. COMPARISON: CT HEAD WITHOUT CONTRAST on DOS: 05/03/24 FINDINGS: Suboptimal patient positioning, planes of image acquisition and reformation limit assessment. Brain: No acute hemorrhage, mass effect, or cerebral edema. CSF Spaces: Size and morphology within normal limits. Bones/Soft Tissues: No acute findings. Orbits/Sinuses/Mastoids: Unremarkable as visualized. IMPRESSION: 1. No acute intracranial abnormality. Radiation optimization: All CT scans at this facility use at least one of these dose optimization techniques: automated exposure control mA and/or kV adjustment per patient size (includes targeted exams where dose is matched to clinical indication) or iterative reconstruction. ATED BY: ELIA TOPETE MD DICTATED DATE/TIME: 10/03/242154 SIGNED BY: ELIA TOPETE MD SIGNED DATE/TIME: 10/03/242154 CC: [place] [address] Ph: [phone] DIAGNOSTIC IMAGING Diagnostic Imaging Report : [id number] Signed PATIENT: ZACHERY AMBROSE ACCT: [id number] UNIT: [id number] : 2005 LOC: ER ROOM / BED: / AGE / SEX: 18 / M ADM STATUS: REG ER SERVICE 1345 ORDERING PHYSICIAN: TRACIE ABBASI DO PROCEDURE(s): CXRP - CHEST PORTABLE REASON: KATLIN ORDER NUMBER(s): [id number], ACCESSION NUMBER(s): [id number] EXAM: XY CHEST PORTABLE HISTORY: SZ COMPARISON: None TECHNIQUE: Portable AP view of the chest was performed. FINDINGS: Lung volumes are low. No pneumothorax, consolidative infiltrates, or pulmonary edema. The heart is not enlarged. IMPRESSION: No acute intrathoracic process. Examination limited by low lung volumes. ATED BY: CLARE FUENTES MD DICTATED DATE/TIME: 05/03/241406 SIGNED BY: CLARE FUENTES MD SIGNED DATE/TIME: 05/03/24 [address] [place] [address] Ph: [phone] DIAGNOSTIC IMAGING Diagnostic Imaging Report : [id number] Signed PATIENT: ZACHERY AMBROSE ACCT: [id number] UNIT: [id number] : 2005 LOC: ER ROOM / BED: / AGE / SEX: 18 / M ADM STATUS: REG ER SERVICE 1343 ORDERING PHYSICIAN: TRACIE ABBASI DO PROCEDURE(s): HWOCT - HEAD WITHOUT CONTRAST REASON: seizure, head injury ORDER NUMBER(s): [id number], ACCESSION NUMBER(s): [id number] EXAM: CT HEAD WITHOUT CONTRAST HISTORY: seizure, head injury COMPARISON: CT scan of the head dated 01/04/2024 TECHNIQUE: Noncontrast axial CT images of the head were performed. Sagittal and coronal reformatted images were obtained. This CT exam was performed using 1 or more of the following dose reduction techniques: Automated exposure control, adjustment of the mA and/or kv according to patient size, or the use of iterative reconstruction techniques. Radiation Dose: CTDI volume is 68.28 mGy. Dose-length product is 1277.0 mGy*cm FINDINGS: No intracranial hemorrhage, mass, midline shift, hydrocephalus, or evidence of acute large vessel infarct. There is a tiny cavum septum pellucidum. There is a small mucous retention cyst in the left maxillary sinus. The bilateral mastoid air cells and middle ear spaces are clear. No cranial fracture or scalp edema. IMPRESSION: No acute intracranial process. ATED BY: CLARE FUENTES MD [place] [id number] Ph: [phone] DIAGNOSTIC IMAGING Diagnostic Imaging Report : [id number] Signed PATIENT: ZACHERY AMBROSE ACCT: [id number] UNIT: [id number] : 2005 LOC: ER ROOM / BED: / AGE / SEX: 18 / M ADM STATUS: REG ER SERVICE 1343 ORDERING PHYSICIAN: TRACIE ABBASI DO PROCEDURE(s): CS2 - CERVICAL WITHOUT CONTRAST REASON: seizure, head injury ORDER NUMBER(s): [id number], ACCESSION NUMBER(s): [id number] EXAM: CT CERVICAL WITHOUT CONTRAST INDICATION: seizure, head injury EXAM DATE: 05/03/2024 01:47 PM COMPARISON: None TECHNIQUE: Noncontrast axial CT images of the cervical spine were performed. Sagittal and coronal reformatted images were obtained. Radiation Dose Information: CT Dose: CTDI volume is 27.91 mGy. Dose-length product is 639.83 mGy*cm FINDINGS: No fracture or listhesis of the cervical spine. No significant degenerative changes, spinal canal stenosis, or neural foraminal stenosis at any level in the cervical spine. There is mild bales tonsillar hypertrophy without significant airway narrowing. IMPRESSION: No fracture of the cervical spine. ATED BY: CLARE FUETNES MD DICTATED DATE/TIME: 05/03/24 141 SIGNED BY: CLARE FUENTES MD SIGNED DATE/TIME: 05/03/24 141 CC: [place] [address] Ph: [phone] DIAGNOSTIC IMAGING Diagnostic Imaging Report : [id number] Signed PATIENT: JOHN AMBROSECCT: [id number] UNIT: [id number] : 2005 LOC: ER ROOM / BED: / AGE / SEX: 18 / M ADM STATUS: REG ER SERVICE 1400 ORDERING PHYSICIAN: TRACIE ABBASI DO PROCEDURE(s): CXRP - CHEST PORTABLE REASON: seizure ORDER NUMBER(s): [id number], ACCESSION NUMBER(s): [id number] CHEST RADIOGRAPH Indication: seizure Technique: Single frontal view of the chest was obtained COMPARISON: XY CHEST PORTABLE on DOS: 05/03/24 FINDINGS: Lines and Tubes: None Lungs: Congestion Pleura: No effusion. No pneumothorax. Cardiomediastinal contours: Unremarkable Bones: Unremarkable IMPRESSION: Increased interstital prominence. This may represent pulmonary vascular congestion and/or viral pneumonia. Clinical correlation advised. ATED BY: ELIA TOPETE MD DICTATED DATE/TIME: 10/04/241434 SIGNED BY: ELIA TOPETE MD SIGNED DATE/TIME: 10/04/241434 CC: Time of 1ST Reevaluation: 00:00 Reevaluation 1ST: Unchanged Patient Education/Counseling: Diagnosis, Treatment Family Education/Counseling: Diagnosis, Treatment Comments MDM: patient presented with the above HPI.--seizure----workup was initiated. patient was found with the above mentioned diagnosis. the following medications were ordered: please refer to order lists of meds and tests obtained by myself Dr. Abbasi. Patient ED course and VS have been stabilized. Patient has been reassessed in the ED and remained in a stable condition. Pertinent incidental findings were discussed with the patient and/or family. Patient/family voices understanding and is agreeable with plan. Patient has been observed in the ED adequate length of time to insure improvement/stability. Escalation of care considered: Consideration of escalation to observation or admission Patient was given Tylenol for headache, Ativan and fluids. Patient was ADMITTED to the medicine team for further evaluation and treatment of their presentation. Later I was informed that the patient left against medical advice. All the reports of any imaging studies that were ordered by myself were reviewed by myself. Departure 1 Departure Time of Disposition: 14:23 Impression: Primary Impression: Recurrent seizures Disposition: ADMITTED INPATIENT Admit to: Tele Condition: Guarded Discharged With: Self Critical Care Note Critical Care Time?: Yes (1 hr-critical care time only) I personally scribed for TRACIE ABBASI DO ([email or web address]) on 10/04/24 at 14:10. Electronically submitted by Marcus Lopez ([email or web address]). I personally scribed for TRACIE ABBASI DO ([email or web address]) on 10/04/24 at 14:48. Electronically submitted by Marcus Lopez ([email or web address]). TRACIE ABBASI DO Oct 04, 2024 14:05
[2024-10-04] MEDS: SODIUM CHLORIDE 0.9% 1,000 ML IV ONE (14:12)
[2024-10-04] MEDS: LORazepam 2MG/ML-1ML VIAL ONE (14:12)
--- NOTE | 2024-10-04 14:37 | DVH ---
CHEST RADIOGRAPH Indication: seizure Technique: Single frontal view of the chest was obtained COMPARISON: XY CHEST PORTABLE on DOS: 05/03/24 FINDINGS: Lines and Tubes: None Lungs: Congestion Pleura: No effusion. No pneumothorax. Cardiomediastinal contours: Unremarkable Bones: Unremarkable IMPRESSION: Increased interstital prominence. This may represent pulmonary vascular congestion and/or viral pneum onia. Clinical correlation advised.
[2024-10-04 14:40] LABS: Hematocrit 47.5 % (41.0-53.0); Hemoglobin 16.3 g/dL (13.5-17.5); Mean Corpuscular Hemoglobin 30.4 pg (28.0-32.0); Mean Corpuscular Volume 88.9 fL (80.0-100.0); Nucleated Red Blood Cells % 0.0 %
[2024-10-04 14:49] LABS: Alanine Aminotransferase 33 U/L (7-40); Alkaline Phosphatase 91 U/L (46-116); Anion Gap 9 (5-15); BUN/Creatinine Ratio 9.3 (10.0-20.0); Bilirubin, Total 0.3 mg/dL (0.2-1.0); Calcium 9.8 mg/dL (8.7-10.4); Carbon Dioxide 26 mmol/L (20-31); Chloride 106 mmol/L (98-107); Glucose 101 mg/dL (74-106); Magnesium 2.3 mg/dL (1.6-2.6); Potassium 3.7 mmol/L (3.5-5.1); Sodium 141 mmol/L (136-145); Total Protein 7.6 g/dL (5.7-8.2)
[2024-10-04 14:58] LABS: Albumin 4.9 g/dL (3.2-4.8); Blood Urea Nitrogen 8 mg/dL (9-23)
[2024-10-04 15:39] LABS: Urine Protein, UAD Negative (Negative)
[2024-10-04 16:00] VITALS: BP 122/65; PULSE 76; RESP 11; O2SAT 98
[2024-10-04 17:06] VITALS: TEMP 99.2
[2024-10-04] MEDS: ACETAMINOPHEN 325 MG TAB PO ONE (17:06)
--- NOTE | 2024-10-04 18:21 | DVHHP2 ---
Admitting Diagnosis: Seizure History of Present Illness 18-year-old male brought in by his mother for evaluation of witnessed seizure in the car. No fall or trauma or injury. Patient was here in the emergency de partment yesterday for the same thing but left AMA. Patient takes XCORPI for seizure daily by mouth. He took it last night. He went to see his pediatric neurologist Dr. Willingham earlier today to get a refill. Patient was switch this medication approximately two months ago. He is allergic to Keppra. Past Medical History: ADHD, seizure disorder, autism Past Surgical History: Tonsillectomy REVIEW OF SYSTEMS: Review of system is limited given the patient's altered level of consciousness postictal state. History obtained from the mother at bedside. CONSTITUTIONAL: Denies acute: fever, diaphoresis, chills, HEAD: Denies acute: headache, photophobia Eyes: Denies acute: Double vision, vision loss, eye pain, eye discharge. EARS: Denies acute: tinnitus, hearing loss, ear discharge, ear pain, THROAT: Denies acute: sore throat, swelling, difficulty swallowing , pain with swallo wing, change in voice. NECK: Denies acute: neck pain, neck swelling, stiff neck. HEART: Denies acute : chest pain, palpitations, LUNGS: Denies acute: wheezing, cough, hemoptysis ABDOMEN: Denies acute: abdominal pain, Nausea, Vomiting, diarrhea, melena , hematemesis, hematochezia SKIN: Denies acute: rash, redness, lesions, itchiness. EXTREMITIES: Denies acute: calf pain, numbness, tingling, weakness, denies pain in extremity. Denies acute: Low back pain. Neuro: Denies acute: focal neurological deficit, motor or sensory focal neurological deficit, confusion, dizziness, loss of bowel or bladder function, cauda equina like symptoms. : Denies acute: dysuria, hematuria, flank pain, increase in urinary frequency. PSYCH: Denies acute: hallucination, suicidal ideation, homicidal ideation. PAST MEDICAL HISTORY: Seizures Surgical History: Tonsillectomy Family History Family History: No family hx of Cancer Social History Smoker: Non-Smoker Alcohol: Denies ETOH Use Drugs: Denies Drug Use Lives In: Home Allergies: Coded Allergies: Flu Virus Vaccine (Unverified Allergy, Severe, 07/02/23) Latex (Unverified Allergy, Severe, 07/02/23) Levetiracetam (Verified Allergy, Intermediate, 01/26/24) Home Meds Active Scripts Cephalexin Monohydrate (Cephalexin) 500 Mg Cap, 1 CAP PO QID for 10 Days, #40 CAP Prov:BRANDON ZULUAGA MD 09/21/24 Vital Signs Vital Signs Date Time Temp Pulse Resp B/P (MAP) Pulse Ox O2 Delivery O2 Flow Rate FiO2 10/04/24 17:06 99.2 10/04/24 16:00 76 11 122/65 (84) 98 10/04/24 14:00 Non-Rebreather 15 N/A Physical Exam Generally-18 years old male, well nourished well developed sitting on bed. No apparent distress HEENT-atraumatic, normocephalic Heart-regular rate and rhythm Lungs clear to auscultate Tender nondistended Musculoskeletal-no edema cyanosis Neuro-AO x3, no focal deficits SEPSIS Sepsis Screen Date sepsis recognized/suspect: Oct 04, 2024 Time Sepsis recognized/suspect: 1400 Recent Procedure: No On Antibiotic Therapy: No Respiratory Rate >20: No Heart Rate >90: No Temp<36 C (96.8 F) or >38.3 C: No SBP <90 or MAP <65 mmHG: No New Acute Mental Status Change: No Is the patient on CPAP, BIPAP,: No Physician Orders Electrician Supervisor Substation (10/04/24 ) Seizure Precautions (10/04/24 ) Chest Portable (10/04/24 14:00) Electrocardigram (10/04/24 14:00) Vital Signs Date Time Temp Pulse Resp B/P (MAP) Pulse Ox O2 Delivery O2 Flow Rate FiO2 10/04/24 17:06 99.2 10/04/24 16:00 76 11 122/65 (84) 98 10/04/24 14:00 98.3 88 16 107/60 (76) 100 98.3 10/04/24 14:00 Non-Rebreather 15 N/A 10/04/24 13:57 98.0 128 15 210/121 100 98.0 Laboratory Tests Test 10/04/24 14:20 Lactic Acid Level 2.0 mmol/L (0.4-2.0) White Blood Count 4.4 10^3/uL (4.4-10.8) Medications Medications Dose Ordered Sig/Brett Route Start Time Stop Time Status Last Admin Dose Admin Acetaminophen 650 mg ONCE ONCE PO 10/04/24 17:00 10/04/24 17:01 DC 10/04/24 17:06 Lorazepam 2 mg ONCE ONCE IV 10/04/24 14:15 10/04/24 14:43 DC 10/04/24 14:00 Sodium Chloride 1,000 ml @ 1,000 mls/hr Q1H ONCE IV 10/04/24 14:00 10/04/24 14:59 DC 10/04/24 14:12 Results Labs Test 10/04/24 15:31 10/04/24 14:20 Range/Units Urine Color Colorless Yellow Urine Clarity Clear Clear Urine pH 8.0 5.0-9.0 Urine Specific [place] 1.009 1.001-1.035 Urine Protein Negative Negative Urine Ketones Negative Negative Urine Blood Negative Negative /uL Urine Nitrite Negative Negative Urine Bilirubin Negative Negative Urine Urobilinogen Normal Negative mg/dL Urine Leukocyte Esterase Negative Negative /uL Urine RBC None seen 0 - 3 /hpf Urine Microscopic WBC 0-3 /HPF Urine Squamous Epithelial Cells None seen <5 /hpf Urine Bacteria None seen None Seen /hpf Urine Glucose Normal Normal mg/dL White Blood Count 4.4 4.4-10.8 10^3/uL Red Blood Count 5.34 4.5-5.90 10^6/uL Hemoglobin 16.3 13.5-17.5 g/dL Hematocrit 47.5 41.0-53.0 % Mean Corpuscular Volume 88.9 80.0-100.0 fL Mean Corpuscular Hemoglobin 30.4 28.0-32.0 pg Mean Corpuscular Hemoglobin Concent 34.2 32.0-36.0 g/dL Red Cell Distribution Width 12.9 11.8-14.3 % Platelet Count 140 140-450 10^3/uL Mean Platelet Volume 8.8 6.9-10.8 fL Neutrophils (%) (Auto) 44.8 37.0-80.0 % Lymphocytes (%) (Auto) 42.3 10.0-50.0 % Monocytes (%) (Auto) 10.1 0.0-12.0 % Eosinophils (%) (Auto) 2.3 0.0-7.0 % Basophils (%) (Auto) 0.5 0.0-2.0 % Neutrophils # (Auto) 2.0 1.6-8.6 10 ^3/uL Lymphocytes # (Auto) 1.9 0.4-5.4 10 ^3/uL Monocytes # (Auto) 0.4 0-1.3 10 ^3/uL Eosinophils # (Auto) 0.1 0-0.8 10 ^3/uL Basophils # (Auto) 0 0-0.2 10 ^3/uL Nucleated Red Blood Cells 0.0 % Sodium Level 141 136-145 mmol/L Potassium Level 3.7 3.5-5.1 mmol/L Chloride Level 106 98-107 mmol/L Carbon Dioxide Level 26 20-31 mmol/L Anion Gap 9 5-15 Blood Urea Nitrogen 8 L 9-23 mg/dL Creatinine 0.86 0.700-1.30 mg/dL Glomerular Filtration Rate Calc 127 >90 mL/min BUN/Creatinine Ratio 9.3 L 10.0-20.0 Serum Glucose 101 74-106 mg/dL Lactic Acid Level 2.0 0.4-2.0 mmol/L Calcium Level 9.8 8.7-10.4 mg/dL Magnesium Level 2.3 1.6-2.6 mg/dL Total Bilirubin 0.3 0.2-1.0 mg/dL Aspartate Amino Transferase (AST) 26 13-40 U/L Alanine Aminotransferase (ALT) 33 7-40 U/L Alkaline Phosphatase 91 46-116 U/L Troponin I High Sensitivity < 3 L </=54 ng/L Total Protein 7.6 5.7-8.2 g/dL Albumin 4.9 H 3.2-4.8 g/dL Primary Diagnosis Recurrent seizure Autism Plan Patient's grandmother is at bedside patient continue to seize and running out of seizure medication Recommended to check brain MRI admitted and Neurology consult neuro check per floor protocol full code lovenox for dvt ppx regular diet Plan discussed with: Patient Problems List: (1) Recurrent seizures Status: Acute Date of Service: Oct 04, 2024 Billing Provider: HARRY BOATENG MD Common Visit Codes: 33824-BOLUTED INP/OBS CARE (MOD) HARRY BOATENG MD Oct 04, 2024 18:21
== END 2024-10-04 18:00 | disposition left against medical advice (07) ==
LOC: ER 13:51
DX: G40.909 Epilepsy, unspecified, not intractable, without status epilepticus (principal); Z90.89 Acquired absence of other organs; F84.0 Autistic disorder; Z88.7 Allergy status to serum and vaccine; Z88.8 Allergy status to other drugs, medicaments and biological substances; Z79.899 Other long term (current) drug therapy
CPT/HCPCS: 36415; 71045; 80053; 81001; 83605; 83735; 84484; 85025; 96361; 96374; 99284; J2060; J7030

== ENCOUNTER 2024-10-26 15:22 | Emergency (ER) | payer MEDICAID ==
[~2024-10-26] VITALS: Ht 175.3 cm; Wt 68.0 kg
[2024-10-26 15:42] VITALS: RESP 22; TEMP 98.7; O2SAT 98
--- NOTE | 2024-10-26 16:12 | DVH ---
INDICATION: Shortness of breath TECHNIQUE: Frontal view of the chest. COMPARISON: XY CHEST PORTABLE on DOS: 10/04/24, XY CHEST PORTABLE on DOS: 05/03/24, XR CHEST 1 VIEW on DOS: 10/11/23, XR CHEST 1 VIEW on DOS: 06/27/22, XR CHEST 1 VIEW on DOS: 05/07/22 FINDINGS: . The heart and mediastinal contours are grossly unremarkable. There is no evidence of pleural disea se. The lungs are clear. The bony structures of the chest are intact without fracture. IMPRESSION: 1. No evidence of acute disease.
[2024-10-26 16:35] LABS: Hematocrit 45.7 % (41.0-53.0); Hemoglobin 15.8 g/dL (13.5-17.5); Mean Corpuscular Hemoglobin 30.5 pg (28.0-32.0); Mean Corpuscular Volume 88.4 fL (80.0-100.0); Nucleated Red Blood Cells % 0.1 %
[2024-10-26 16:46] LABS: Chloride 105 mmol/L (98-107); Sodium 143 mmol/L (136-145)
[2024-10-26 16:47] LABS: Anion Gap 15 (5-15); Calcium 9.9 mg/dL (8.7-10.4); Carbon Dioxide 23 mmol/L (20-31)
--- NOTE | 2024-10-26 16:47 | ED.PDOC ---
History of Present Illness HPI Comments 18 y/o M, with a history of asthma and seizures, is BIBA for c/c of shortness of breath. Patient reports on not having an asthma exacerbation for years until, today. Endorsement of sudden and unprovoked onset. Denial of any chest pain, cough, congestion, ro further associated symptoms. Per EMS personnel note, patient was found on 84%RA and was given 2x breathing treatments en route. Chief Complaint: Shortness of Breath Time Seen by MD: 15:40 Primary Care Provider: UNKNOWN Reviewed Notes: Nurses Notes, Medications, Allergies Allergies: Coded Allergies: Flu Virus Vaccine (Unverified Allergy, Severe, 07/02/23) Latex (Unverified Allergy, Severe, 07/02/23) Levetiracetam (Verified Allergy, Intermediate, 01/26/24) Home Meds Active Scripts Cephalexin Monohydrate (Cephalexin) 500 Mg Cap, 1 CAP PO QID for 10 Days, #40 CAP Prov:BRANDON ZULUAGA MD 09/21/24 Information Source: Patient Mode of Arrival: EMS Severity: Moderate Timing: Hours Duration: Since onset Prehospital treatment: None Past Medical History PAST MEDICAL HISTORY: Seizures Surgical History: Tonsillectomy Family History Family History: No family hx of Cancer Social History Smoker: Non-Smoker Alcohol: Denies ETOH Use Drugs: Denies Drug Use Lives In: Home All Other Systems: Reviewed and Negative (As per HPI) Was a procedure done? Was a procedure done?: No Differential Dx Considerations may include: URI, PNA, viral syndrome, PE, ID, among others X-Ray, Labs, Meds, VS Vital Signs Date Time Temp Pulse Resp B/P (MAP) Pulse Ox O2 Delivery O2 Flow Rate FiO2 10/26/24 17:14 118 21 129/80 (96) 95 10/26/24 15:42 22 98 Nasal Cannula* 4 36 10/26/24 15:42 98.7 122 21 130/77 (94) 100 98.7 10/26/24 15:31 98.7 130 20 125/74 98 98.7 Lab Test 10/26/24 17:36 10/26/24 16:18 Range/Units Troponin I High Sensitivity Pending < 3 L </=54 ng/L White Blood Count 5.5 4.4-10.8 10^3/uL Red Blood Count 5.17 4.5-5.90 10^6/uL Hemoglobin 15.8 13.5-17.5 g/dL Hematocrit 45.7 41.0-53.0 % Mean Corpuscular Volume 88.4 80.0-100.0 fL Mean Corpuscular Hemoglobin 30.5 28.0-32.0 pg Mean Corpuscular Hemoglobin Concent 34.5 32.0-36.0 g/dL Red Cell Distribution Width 12.9 11.8-14.3 % Platelet Count 137 L 140-450 10^3/uL Mean Platelet Volume 9.0 6.9-10.8 fL Neutrophils (%) (Auto) 65.7 37.0-80.0 % Lymphocytes (%) (Auto) 25.4 10.0-50.0 % Monocytes (%) (Auto) 7.7 0.0-12.0 % Eosinophils (%) (Auto) 0.9 0.0-7.0 % Basophils (%) (Auto) 0.3 0.0-2.0 % Neutrophils # (Auto) 3.6 1.6-8.6 10 ^3/uL Lymphocytes # (Auto) 1.4 0.4-5.4 10 ^3/uL Monocytes # (Auto) 0.4 0-1.3 10 ^3/uL Eosinophils # (Auto) 0 0-0.8 10 ^3/uL Basophils # (Auto) 0 0-0.2 10 ^3/uL Nucleated Red Blood Cells 0.1 % D-Dimer, Quantitative 0.36 0.0-0.49 mg/L FEU Sodium Level 143 136-145 mmol/L Potassium Level 3.4 L 3.5-5.1 mmol/L Chloride Level 105 98-107 mmol/L Carbon Dioxide Level 23 20-31 mmol/L Anion Gap 15 5-15 Blood Urea Nitrogen 8 L 9-23 mg/dL Creatinine 0.90 0.700-1.30 mg/dL Glomerular Filtration Rate Calc 125 >90 mL/min BUN/Creatinine Ratio 8.9 L 10.0-20.0 Serum Glucose 110 H 74-106 mg/dL Calcium Level 9.9 8.7-10.4 mg/dL Current Medications Medications (Trade) Dose Ordered Sig/Brett Route Start Time Stop Time Status Last Admin Dexamethasone Sodium Phosphate (Decadron Injection) 10 mg ONCE ONCE IM 10/26/24 15:45 10/26/24 15:46 DC 10/26/24 16:35 [place] [id number] Ph: [phone] DIAGNOSTIC IMAGING Diagnostic Imaging Report : [id number] Signed PATIENT: ZACHERY AMBROSE ACCT: [id number] UNIT: [id number] : 2005 LOC: ER ROOM / BED: / AGE / SEX: 18 / M ADM STATUS: REG ER SERVICE [id number] ORDERING PHYSICIAN: J LUIS BENÍTEZ PAC PROCEDURE(s): CXRP - CHEST PORTABLE REASON: Shortness of breath ORDER NUMBER(s): [id number], ACCESSION NUMBER(s): [id number] INDICATION: Shortness of breath TECHNIQUE: Frontal view of the chest. COMPARISON: XY CHEST PORTABLE on DOS: 10/04/24, XY CHEST PORTABLE on DOS: 05/03/24, XR CHEST 1 VIEW on DOS: 10/11/23, XR CHEST 1 VIEW on DOS: 06/27/22, XR CHEST 1 VIEW on DOS: 05/07/22 FINDINGS: . The heart and mediastinal contours are grossly unremarkable. There is no evidence of pleural disease. The lungs are clear. The bony structures of the chest are intact without fracture. IMPRESSION: 1. No evidence of acute disease. ATED BY: CLARE WAKEFIELD MD DICTATED DATE/TIME: 10/26/241609 SIGNED BY: CLARE WAKEFIELD MD SIGNED DATE/TIME: 10/26/241609 CC: Time of 1ST Reevaluation: 16:10 Reevaluation 1ST: Unchanged Patient Education/Counseling: Diagnosis, Treatment Family Education/Counseling: No Family Present SEPSIS Sepsis Screen Date sepsis recognized/suspect: Oct 26, 2024 Time Sepsis recognized/suspect: 1524 Recent Procedure: No On Antibiotic Therapy: No Respiratory Rate >20: No Heart Rate >90: No Temp<36 C (96.8 F) or >38.3 C: No SBP <90 or MAP <65 mmHG: No New Acute Mental Status Change: No Is the patient on CPAP, BIPAP,: No Physician Orders Chest Portable (10/26/24 15:42) Oxygen (10/26/24 15:42) Electrocardigram (10/26/24 15:42) Troponin-I Hs (10/26/24 16:42) Troponin-I Hs (10/26/24 18:42) Vital Signs Date Time Temp Pulse Resp B/P (MAP) Pulse Ox O2 Delivery O2 Flow Rate FiO2 10/26/24 17:14 118 21 129/80 (96) 95 10/26/24 15:42 22 98 Nasal Cannula* 4 36 10/26/24 15:42 98.7 122 21 130/77 (94) 100 98.7 10/26/24 15:31 98.7 130 20 125/74 98 98.7 Laboratory Tests Test 10/26/24 16:18 White Blood Count 5.5 10^3/uL (4.4-10.8) Medications Medications Dose Ordered Sig/Brett Route Start Time Stop Time Status Last Admin Dose Admin Dexamethasone Sodium Phosphate 10 mg ONCE ONCE IM 10/26/24 15:45 10/26/24 15:46 DC 10/26/24 16:35 Critical Care Note Critical Care Time?: No Stability Stability form required: No Heart Score Heart Score: Heart Score Response (Comments) Value History Moderate Suspicious 1 EKG Normal 0 Age <45 0 Risk Factors 1 or 2 risk factors 1 Troponin Normal limit 0 Total 2 I personally scribed for JOSAFAT MICHELLE MD ([email or web address]) on 10/26/24 at 16:47. Electronically submitted by Ramon Sharma ([email or web address]). I personally scribed for JOSAFAT MICHELLE MD ([email or web address]) on 10/26/24 at 18:05. Electronically submitted by Ramon Sharma ([email or web address]). JOSAFAT MICHELLE MD Oct 26, 2024 16:47
[2024-10-26 16:52] LABS: BUN/Creatinine Ratio 8.9 (10.0-20.0)
[2024-10-26 16:56] LABS: Blood Urea Nitrogen 8 mg/dL (9-23); Glucose 110 mg/dL (74-106); Potassium 3.4 mmol/L (3.5-5.1)
[2024-10-26 18:18] LABS: Urine Protein, UAD TRACE (Negative)
--- NOTE | 2024-10-26 18:18 | ED.PDOC ---
History of Present Illness HPI Comments 18 y/o M, with a Hx of asthma and seizures, is BIBA for c/c shortness of breath. Per EMS, patient's O2 sat was around 88 at arrival. Denial of any chest pain, cough, congestion, or further associated symptoms. En route, EMS reports on patient receiving multiple breathing treatments. Patient states his shortness a breath seems to be resolved, but he feels a little shaky from the albuterol. Patient was tachycardic and satting at 98% on 2 L. Chief Complaint: Shortness of Breath Time Seen by MD: 15:30 Primary Care Provider: UNKNOWN Reviewed Notes: Nurses Notes, Steamtable Attendant Railroad Notes, Medications, Allergies Allergies: Coded Allergies: Flu Virus Vaccine (Unverified Allergy, Severe, 07/02/23) Latex (Unverified Allergy, Severe, 07/02/23) Levetiracetam (Verified Allergy, Intermediate, 01/26/24) Home Meds Active Scripts Cephalexin Monohydrate (Cephalexin) 500 Mg Cap, 1 CAP PO QID for 10 Days, #40 CAP Prov:BRANDON ZULUAGA MD 09/21/24 Information Source: Patient, Emergency Med Personnel Mode of Arrival: EMS Severity: Moderate Timing: Hours Duration: Since onset Prehospital treatment: Ocular Care Technician, None, Treatment Past Medical History PAST MEDICAL HISTORY: Asthma, Seizures Surgical History: Tonsillectomy Family History Family History: No family hx of Cancer Social History Smoker: Non-Smoker Alcohol: Denies ETOH Use Drugs: Denies Drug Use Lives In: Home Constitutional: denies: chills, diaphoresis, fatigue, fever, malaise, sweats, weakness, others EENTM: denies: blurred vision, double vision, ear bleeding, ear discharge, ear drainage, ear pain, ear ringing, eye pain, eye redness, hearing loss, mouth pain, mouth swelling, nasal discharge, nose bleeding, nose congestion, nose pain, photophobia, tearing, throat pain, throat swelling, voice changes, others Respiratory: reports: SOB at rest, shortness of breath; denies: cough, hemoptysis, orthopnea, SOB with excertion, stridor, wheezing, others Cardiovascular: denies: chest pain, dizzy spells, diaphoresis, Dyspnea on exertion, edema, irregular heart beat, left arm pain, lightheadedness, palpitations, PND, syncope, others Gastrointestinal: denies: abdomen distended, abdominal pain, blood streaked bowels, constipated, diarrhea, dysphagia, difficulty swallowing, hematemesis, melena, nausea, poor appetite, poor fluid intake, rectal bleeding, rectal pain, vomiting, others Genitourinary: denies: burning, dysuria, flank pain, frequency, hematuria, incontinence, penile discharge, penile sore, pain, testicle pain, testicle swelling, urgency, others Neurological: denies: dizziness, fainting, headache, left sided numbness, left sided weakness, numbness, paresthesia, pre-existing deficit, right sided numbness, right sided weakness, seizure, speech problems, tingling, tremors, weakness, others Musculoskeletal: denies: back pain, gout, joint pain, joint swelling, muscle pain, muscle stiffness, neck pain, others Integumetry: denies: bruises, change in color, change in hair/nails, dryness, laceration, lesions, lumps, rash, wounds, others Allergic/Immunocompromised: denies: Difficulty Healing, Frequent Infections, Hives, Itching, others Hematologic/Lymphatic: denies: anemia, blood clots, easy bleeding, easy bruising, swollen glands, others Endocrine: denies: excessive hunger, excessive sweating, excessive thirst, excessive urination, flushing, intolerance to cold, intolerance to heat, unexplained weight gain, unexplained weight loss, others Psychiatric: reports: anxiety; denies: bipolar disorder, depression, hopeless, panic disorder, schizophrenia, sleepless, suicidal, others All Other Systems: Reviewed and Negative (Comprehensive review of systems are negative unless stated in HPI) Physical Exam General Appearance: Mild Distress (Patient has a moderate distress due to anxiety related to his shortness a breath event.), Normal HEENT: Normal ENT Inspection, Pharynx Normal, TMs Normal Neck: Full Range of Motion, Non-Tender, Normal, Normal Inspection Respiratory: Chest Non-Tender, Lungs Clear, No Accessory Muscle Use, No Respiratory Distress, Normal Breath Sounds, Other (Unremarkable auscultation bilateral lung pickering.) Cardiovascular: No Edema, No JVD, No Murmur, No Gallop, Normal Peripheral Pulses, Tachycardia Breast Exam: Deferred Gastrointestinal: No Organomegaly, Non Tender, No Pulsatile Mass, Normal Bowel Sounds, Soft Genitalia: Deferred Pelvic: Deferred Rectal: Deferred Extremities: No calf tenderness, Normal capillary refill, Normal inspection, No rmal range of motion, Non-tender, No pedal edema Neurologic: Alert Cerebellar Function: NOT DONE Reflexes: NOT DONE Skin: Dry, Normal Color, Warm Lymphatic: No Adenopathy Was a procedure done? Was a procedure done?: No Differential Dx Considerations may include: asthma exacerbation, URI, PNA, PE, ID, among others X-Ray, Labs, Meds, VS Vital Signs Date Time Temp Pulse Resp B/P (MAP) Pulse Ox O2 Delivery O2 Flow Rate FiO2 10/26/24 19:45 22 98 Nasal Cannula* 4 36 10/26/24 19:05 108 15 111/61 (78) 94 10/26/24 18:24 115 10/26/24 17:14 118 21 129/80 (96) 95 10/26/24 15:42 22 98 Nasal Cannula* 4 36 10/26/24 15:42 98.7 122 21 130/77 (94) 100 98.7 10/26/24 15:31 98.7 130 20 125/74 98 98.7 Lab Test 10/26/24 17:36 10/26/24 17:00 10/26/24 16:18 Range/Units Troponin I High Sensitivity 6 < 3 L </=54 ng/L Urine Color Light-yellow Yellow Urine Clarity Clear Clear Urine pH 6.0 5.0-9.0 Urine Specific [place] 1.012 1.001-1.035 Urine Protein Trace H Negative Urine Ketones Trace Negative Urine Blood Negative Negative /uL Urine Nitrite Negative Negative Urine Bilirubin Negative Negative Urine Urobilinogen Normal Negative mg/dL Urine Leukocyte Esterase Negative Negative /uL Urine RBC 1 0 - 3 /hpf Urine Microscopic WBC < 1 0-3 /HPF Urine Squamous Epithelial Cells Few <5 /hpf Urine Bacteria None seen None Seen /hpf Urine Glucose Normal Normal mg/dL White Blood Count 5.5 4.4-10.8 10^3/uL Red Blood Count 5.17 4.5-5.90 10^6/uL Hemoglobin 15.8 13.5-17.5 g/dL Hematocrit 45.7 41.0-53.0 % Mean Corpuscular Volume 88.4 80.0-100.0 fL Mean Corpuscular Hemoglobin 30.5 28.0-32.0 pg Mean Corpuscular Hemoglobin Concent 34.5 32.0-36.0 g/dL Red Cell Distribution Width 12.9 11.8-14.3 % Platelet Count 137 L 140-450 10^3/uL Mean Platelet Volume 9.0 6.9-10.8 fL Neutrophils (%) (Auto) 65.7 37.0-80.0 % Lymphocytes (%) (Auto) 25.4 10.0-50.0 % Monocytes (%) (Auto) 7.7 0.0-12.0 % Eosinophils (%) (Auto) 0.9 0.0-7.0 % Basophils (%) (Auto) 0.3 0.0-2.0 % Neutrophils # (Auto) 3.6 1.6-8.6 10 ^3/uL Lymphocytes # (Auto) 1.4 0.4-5.4 10 ^3/uL Monocytes # (Auto) 0.4 0-1.3 10 ^3/uL Eosinophils # (Auto) 0 0-0.8 10 ^3/uL Basophils # (Auto) 0 0-0.2 10 ^3/uL Nucleated Red Blood Cells 0.1 % D-Dimer, Quantitative 0.36 0.0-0.49 mg/L FEU Sodium Level 143 136-145 mmol/L Potassium Level 3.4 L 3.5-5.1 mmol/L Chloride Level 105 98-107 mmol/L Carbon Dioxide Level 23 20-31 mmol/L Anion Gap 15 5-15 Blood Urea Nitrogen 8 L 9-23 mg/dL Creatinine 0.90 0.700-1.30 mg/dL Glomerular Filtration Rate Calc 125 >90 mL/min BUN/Creatinine Ratio 8.9 L 10.0-20.0 Serum Glucose 110 H 74-106 mg/dL Calcium Level 9.9 8.7-10.4 mg/dL Current Medications Medications (Trade) Dose Ordered Sig/Brett Route Start Time Stop Time Status Last Admin Dexamethasone Sodium Phosphate (Decadron Injection) 10 mg ONCE ONCE IM 10/26/24 15:45 10/26/24 15:46 DC 10/26/24 16:35 X-Ray, Labs, Meds, VS Comment All studies performed the ED were evaluated by me personally. Serum studies were unremarkable for any systemic concerns. EKG revealed a sinus tachycardia with a rate of 115. Baseline wander in lead V1 with a MS interval of 182 and a QT interval of 309. Chest x-ray was unremarkable for any acute intrapulmonary concerns or consolidation. Patient was able to be weaned off of oxygen and was satting at 95% on room air at time of discharge. Advised patient to follow up with his primary care provider in the next few days for re-evaluation. Time of 1ST Reevaluation: 20:55 Reevaluation 1ST: Improved Consultation: PCP Patient Education/Counseling: Diagnosis, Treatment, Need For Follow Up Family Education/Counseling: Diagnosis, Treatment, No Family Present SEPSIS Sepsis Screen Date sepsis recognized/suspect: Oct 26, 2024 Time Sepsis recognized/suspect: 1541 Recent Procedure: No On Antibiotic Therapy: No Respiratory Rate >20: Yes Heart Rate >90: Yes Temp<36 C (96.8 F) or >38.3 C: No SBP <90 or MAP <65 mmHG: No New Acute Mental Status Change: No Is the patient on CPAP, BIPAP,: No Physician Orders Chest Portable (10/26/24 15:42) Oxygen (10/26/24 15:42) Vital Signs Date Time Temp Pulse Resp B/P (MAP) Pulse Ox O2 Delivery O2 Flow Rate FiO2 10/26/24 19:45 22 98 Nasal Cannula* 4 36 10/26/24 19:05 108 15 111/61 (78) 94 10/26/24 18:24 115 10/26/24 17:14 118 21 129/80 (96) 95 10/26/24 15:42 22 98 Nasal Cannula* 4 36 10/26/24 15:42 98.7 122 21 130/77 (94) 100 98.7 10/26/24 15:31 98.7 130 20 125/74 98 98.7 Laboratory Tests Test 10/26/24 16:18 White Blood Count 5.5 10^3/uL (4.4-10.8) Medications Medications Dose Ordered Sig/Brett Route Start Time Stop Time Status Last Admin Dose Admin Dexamethasone Sodium Phosphate 10 mg ONCE ONCE IM 10/26/24 15:45 10/26/24 15:46 DC 10/26/24 16:35 Departure 1 Departure Time of Disposition: 20:55 Impression: Primary Impression: Shortness of breath Additional Impression: History of seizures Disposition: HOME / SELF CARE / HOMELESS Condition: Stable Additional Instructions: Advised patient to follow up with his primary care provider in the next few days for re-evaluation. Discharged With: Self, Friend Critical Care Note Critical Care Time?: No Stability Stability form required: No Heart Score Heart Score: Heart Score Response (Comments) Value History Slightly Suspicious 0 EKG Repolarization Disturb 1 Age <45 0 Risk Factors No known risk factors 0 Troponin Normal limit 0 Total 1 I personally scribed for J LUIS BENÍTEZ PAC ([email or web address]) on 10/26/24 at 18:18. Electronically submitted by Ramon Sharma [email or web address]). J LUIS BENÍTEZ PAC Oct 26, 2024 18:18
--- NOTE | 2024-10-26 18:50 | ECG ---
[facility] Test Date: 2024-10-26 Test Time: 18:24:05 Pat Name: ZACHERY AMBROSE Department: Room: Gender: M Test Pilot: CARLOS : 2005 Requested By: J LUIS BENÍTEZ Order Number: [id number] Reading MD: Neo Calixto Measurements Intervals [place] Rate: 115 P: 59 FL: 182 QRS: 75 QRSD: 93 T: 14 QT: 309 QTc: 428 Interpretive Statements Sinus tachycardia ST elevation suggests acute pericarditis Baseline wander in lead(s) V1 Electronically Signed On 10-28-2024 19:17:04 PDT by Neo Calixto Please click the below link to view image of tracing.
[2024-10-26 19:45] VITALS: RESP 22; O2SAT 98
[2024-10-26 21:10] VITALS: BP 111/55; PULSE 102; RESP 17; O2SAT 94
[2024-10-26] MEDS ORDERED: ALBU108A5 IN (22:23)
== END 2024-10-26 22:51 | disposition home or self-care (01) ==
LOC: ER 15:22 → EDBD 15:22 → ER 22:51
DX: R06.02 Shortness of breath (principal); J45.909 Unspecified asthma, uncomplicated; Z86.69 Personal history of other diseases of the nervous system and sense organs; Z91.040 Latex allergy status; Z88.7 Allergy status to serum and vaccine; Z90.89 Acquired absence of other organs; Z79.899 Other long term (current) drug therapy
CPT/HCPCS: 36415; 71045; 80048; 81001; 84484; 85025; 85379; 93005; 96372; 99285; J1100

== ENCOUNTER 2024-12-04 18:01 | Emergency (ER) | payer MEDICAID ==
[~2024-12-04] VITALS: Ht 170.2 cm; Wt 87.0 kg
[~2024-12-04 18:01] MED LIST changes: +ALBU108A5 IN
[2024-12-04 18:20] VITALS: PULSE 96; RESP 16; O2SAT 99
[2024-12-04] MEDS: LORazepam 2MG/ML-1ML VIAL IV ONE ×2 (18:52→18:59)
--- NOTE | 2024-12-04 18:56 | ED.PDOC ---
HPI (NEURO) HPI Comments 19 year old male with PMHx seizure, asthma, autism presents to the ED via EMS with a chief complaint of seizure onset today (12/04/24) around 17:30. Mother states patient was sitting down talking, mother noticed patient began drooling, was not responding, episode lasted approximately 5 minutes, 911 was called. Last ED visit was 10/26/24, for seizure activity. Patient is currently post-ictal, mother states patient is usually post ictal for a few hours. Had visit with Neurologist, Dr. Willingham, on 11/25/24, no changes of medication was done. Mother states patient has had total of 5 seizure episodes this year. Patient is poor historian. No other symptoms or modifying factors present at this time. Chief Complaint: Seizure Time Seen by MD: 18:40 Primary Care Provider: UNKNOWN Reviewed Notes: Medications, Allergies Information Source: Relative (Mother), Emergency Med Personnel Mode of Arrival: EMS Severity: Moderate Timing: Hours Duration: Since onset Prehospital treatment: None Seizure Quality: Tonic-clonic Seizure Location: Generalized Onset: At rest Circumstances: Spontaneous Symptoms: Other Before: Normal After: Confusion History of: Seizure Disorder Modifying factors: Nothing Past Medical History PAST MEDICAL HISTORY: Asthma, Seizures Surgical History: Tonsillectomy Family History Family History: No family hx of Cancer Social History Smoker: Non-Smoker Alcohol: Denies ETOH Use Drugs: Denies Drug Use Lives In: Home Constitutional: denies: chills, diaphoresis, fatigue, fever, malaise, sweats, weakness, others EENTM: denies: blurred vision, double vision, ear bleeding, ear discharge, ear drainage, ear pain, ear ringing, eye pain, eye redness, hearing loss, mouth pain, mouth swelling, nasal discharge, nose bleeding, nose congestion, nose pain, photophobia, tearing, throat pain, throat swelling, voice changes, others Respiratory: denies: cough, hemoptysis, orthopnea, SOB at rest, shortness of breath, SOB with excertion, stridor, wheezing, others Cardiovascular: denies: chest pain, dizzy spells, diaphoresis, Dyspnea on exertion, edema, irregular heart beat, left arm pain, lightheadedness, palpitations, PND, syncope, others Gastrointestinal: denies: abdomen distended, abdominal pain, blood streaked bowels, constipated, diarrhea, dysphagia, difficulty swallowing, hematemesis, melena, nausea, poor appetite, poor fluid intake, rectal bleeding, rectal pain, vomiting, others Genitourinary: denies: burning, dysuria, flank pain, frequency, hematuria, incontinence, penile discharge, penile sore, pain, testicle pain, testicle swelling, urgency, others Neurological: reports: seizure; denies: dizziness, fainting, headache, left sided numbness, left sided weakness, numbness, paresthesia, pre-existing deficit, right sided numbness, right sided weakness, speech problems, tingling, tremors, weakness, others Musculoskeletal: denies: back pain, gout, joint pain, joint swelling, muscle pain, muscle stiffness, neck pain, others Integumetry: denies: bruises, change in color, change in hair/nails, dryness, laceration, lesions, lumps, rash, wounds, others Allergic/Immunocompromised: denies: Difficulty Healing, Frequent Infections, Hives, Itching, others Hematologic/Lymphatic: denies: anemia, blood clots, easy bleeding, easy bruising, swollen glands, others Endocrine: denies: excessive hunger, excessive sweating, excessive thirst, excessive urination, flushing, intolerance to cold, intolerance to heat, unexplained weight gain, unexplained weight loss, others Psychiatric: denies: anxiety, bipolar disorder, depression, hopeless, panic disorder, schizophrenia, sleepless, suicidal, others All Other Systems: Reviewed and Negative Physical Exam General Appearance: Normal HEENT: Normal ENT Inspection, Pharynx Normal, TMs Normal Neck: Full Range of Motion, Non-Tender, Normal, Normal Inspection Respiratory: Chest Non-Tender, Lungs Clear, No Accessory Muscle Use, No Respiratory Distress, Normal Breath Sounds Cardiovascular: No Edema, No JVD, No Murmur, No Gallop, Normal Peripheral Pulses, Regular Rate/Rhythm Breast Exam: Deferred Gastrointestinal: No Organomegaly, Non Tender, No Pulsatile Mass, Normal Bowel Sounds, Soft Genitalia: Deferred Pelvic: Deferred Rectal: Deferred Extremities: No calf tenderness, Normal capillary refill, Normal inspection, Normal range of motion, Non-tender, No pedal edema Musculoskeletal : Apperance: Normal Neurologic: arch pad cementer II-XII nml as Tested Cerebellar Function: Normal Reflexes: Normal Skin: Dry, Normal Color, Warm Lymphatic: No Adenopathy Was a procedure done? Was a procedure done?: No Differential Diagnosis (SZ) Seizure: Closed Head Injury, CVA/TIA, Meningitis, Syncope, Epilepsy-Break Through, Epilepsy-Status X-Ray, Labs, Meds, VS Vital Signs Date Time Temp Pulse Resp B/P (MAP) Pulse Ox O2 Delivery O2 Flow Rate FiO2 12/04/24 21:00 103 30 134/79 (97) 98 12/04/24 20:00 123 36 141/88 (105) 100 12/04/24 19:30 Nasal Cannula* 4 36 12/04/24 19:00 98.8 106 26 124/84 (97) 98 98.8 12/04/24 18:20 96 16 99 Room Air* 0 21 12/04/24 18:20 99.3 106 16 132/87 (102) 98 99.3 12/04/24 18:02 97.8 92 18 159/106 97 97.8 Lab Test 12/04/24 20:00 12/04/24 19:48 12/04/24 19:23 Range/Units Urine Color Pending Urine Clarity Pending Urine pH Pending Urine Specific Zap Pending Urine Protein Pending Urine Ketones Pending Urine Blood Pending Urine Nitrite Pending Urine Bilirubin Pending Urine Urobilinogen Pending Urine Leukocyte Esterase Pending Urine RBC Pending Urine Microscopic WBC Pending Urine Squamous Epithelial Cells Pending Urine Bacteria Pending Urine Glucose Pending POC Glucose 102 70-106 mg/dl White Blood Count 6.2 4.4-10.8 10^3/uL Red Blood Count 5.19 4.5-5.90 10^6/uL Hemoglobin 15.4 13.5-17.5 g/dL Hematocrit 45.9 41.0-53.0 % Mean Corpuscular Volume 88.4 80.0-100.0 fL Mean Corpuscular Hemoglobin 29.8 28.0-32.0 pg Mean Corpuscular Hemoglobin Concent 33.6 32.0-36.0 g/dL Red Cell Distribution Width 12.7 11.8-14.3 % Platelet Count 148 140-450 10^3/uL Mean Platelet Volume 9.5 6.9-10.8 fL Neutrophils (%) (Auto) 51.7 37.0-80.0 % Lymphocytes (%) (Auto) 34.7 10.0-50.0 % Monocytes (%) (Auto) 11.2 0.0-12.0 % Eosinophils (%) (Auto) 1.9 0.0-7.0 % Basophils (%) (Auto) 0.5 0.0-2.0 % Neutrophils # (Auto) 3.2 1.6-8.6 10 ^3/uL Lymphocytes # (Auto) 2.1 0.4-5.4 10 ^3/uL Monocytes # (Auto) 0.7 0-1.3 10 ^3/uL Eosinophils # (Auto) 0.1 0-0.8 10 ^3/uL Basophils # (Auto) 0 0-0.2 10 ^3/uL Nucleated Red Blood Cells 0.1 % Sodium Level 143 136-145 mmol/L Potassium Level 3.6 3.5-5.1 mmol/L Chloride Level 106 98-107 mmol/L Carbon Dioxide Level 27 20-31 mmol/L Anion Gap 10 5-15 Blood Urea Nitrogen 13 9-23 mg/dL Creatinine 0.82 0.700-1.30 mg/dL Glomerular Filtration Rate Calc 128 >90 mL/min BUN/Creatinine Ratio 15.9 10.0-20.0 Serum Glucose 94 74-106 mg/dL Calcium Level 9.4 8.7-10.4 mg/dL Total Bilirubin 0.2 0.2-1.0 mg/dL Aspartate Amino Transferase (AST) 19 13-40 U/L Alanine Aminotransferase (ALT) 24 7-40 U/L Alkaline Phosphatase 98 46-116 U/L Total Protein 7.0 5.7-8.2 g/dL Albumin 4.6 3.2-4.8 g/dL Current Medications Medications (Trade) Dose Ordered Sig/Brett Route Start Time Stop Time Status Last Admin Lorazepam (Ativan Inj) 2 mg ONCE ONCE IV 12/04/24 19:00 12/04/24 19:01 DC 12/04/24 18:52 Acetaminophen (Ofirmev) 1,000 mg ONCE ONCE IV 12/04/24 19:00 12/04/24 19:01 DC 12/04/24 19:21 Lorazepam (Ativan Inj) 1 mg ONCE ONCE IV 12/04/24 19:15 12/04/24 19:16 DC 12/04/24 18:59 Midazolam HCl (Versed Injection) 2 mg ONCE ONCE IV 12/04/24 19:15 12/04/24 19:16 DC 12/04/24 19:46 Phenobarbital 600 mg/Sodium Chloride 104.6154 ml @ 313.... ONCE ONCE IV 12/04/24 20:00 12/04/24 20:19 DC 12/04/24 20:25 Ondansetron HCl (Zofran) 4 mg ONCE ONCE IV 12/04/24 21:00 12/04/24 21:01 DC 12/04/24 20:55 X-Ray, Labs, Meds, VS Comment Imaging was reviewed by this provider, there is no obvious pathological or acute disease process. Pending radiology review Labs were reviewed by this provider, no abnormalities Vital signs reviewed by this provider, clinically stable Time of 1ST Reevaluation: 19:10 Reevaluation 1ST: Unchanged Patient Education/Counseling: Diagnosis, Treatment, Prognosis, Need For Follow Up (Follow up with PCP next available appointment. Return to the emergency department if symptoms worsen.) Family Education/Counseling: Diagnosis, Treatment, Prognosis Departure 1 Departure Time of Disposition: 22:13 Impression: Primary Impression: Recurrent seizures Disposition: 01 HOME / SELF CARE / HOMELESS Condition: Fair Discharged With: Self Critical Care Note Critical Care Time?: No Stability Stability form required: No Heart Score Heart Score: Heart Score Response (Comments) Value History N/A 0 EKG N/A 0 Age N/A 0 Risk Factors N/A 0 Troponin N/A 0 Total 0 I personally scribed for TIM GARCIA ([email or web address]) on 12/04/24 at 18:56. Electronically submitted by Era Gray ([email or web address]). TIM GARCIA Dec 04, 2024 18:56
[2024-12-04 19:00] VITALS: TEMP 98.8
[2024-12-04] MEDS: MIDAZOLAM HCL 2MG/2ML 2ml VIAL (1mg/ml) ONE (19:17)
[2024-12-04] MEDS: LORazepam 2MG/ML-1ML VIAL ONE ×2 (19:18)
[2024-12-04] MEDS: ACETAMINOPHEN IV 1000 MG/100ML (10MG/ML) IV ONE (19:21)
[2024-12-04] MEDS: MIDAZOLAM HCL 2MG/2ML 2ml VIAL (1mg/ml) IV ONE (19:46)
[2024-12-04 19:56] LABS: Alanine Aminotransferase 24 U/L (7-40); Albumin 4.6 g/dL (3.2-4.8); Alkaline Phosphatase 98 U/L (46-116); Anion Gap 10 (5-15); BUN/Creatinine Ratio 15.9 (10.0-20.0); Blood Urea Nitrogen 13 mg/dL (9-23); Calcium 9.4 mg/dL (8.7-10.4); Carbon Dioxide 27 mmol/L (20-31); Chloride 106 mmol/L (98-107); Glucose 94 mg/dL (74-106); Potassium 3.6 mmol/L (3.5-5.1); Sodium 143 mmol/L (136-145); Total Protein 7.0 g/dL (5.7-8.2)
[2024-12-04 19:57] LABS: Bilirubin, Total 0.2 mg/dL (0.2-1.0)
[2024-12-04] MEDS: PHENobarbital SODIUM INJ 600 MG in SODIUM CHL 0.9% 100 ML IV ONE (20:25)
[2024-12-04 20:44] LABS: Hematocrit 45.9 % (41.0-53.0); Hemoglobin 15.4 g/dL (13.5-17.5); Mean Corpuscular Hemoglobin 29.8 pg (28.0-32.0); Mean Corpuscular Volume 88.4 fL (80.0-100.0); Nucleated Red Blood Cells % 0.1 %
--- NOTE | 2024-12-04 20:49 | DVH ---
CT HEAD WITHOUT CONTRAST INDICATION: SZ COMPARISON: CT HEAD WITHOUT CONTRAST on DOS: 10/03/24, CT CERVICAL WITHOUT CONTRAST on DOS: 05/03/24, C T HEAD WITHOUT CONTRAST on DOS: 05/03/24, CT BRAIN on DOS: 01/04/24, CT BRAIN on DOS: 10/11/23 TECHNIQUE: CT of the head without intravenous contrast. RADIATION DOSE: CTDIvol: 68 mGy, DLP: 1206 mGy*cm FINDINGS: There is no evidence of acute intracranial hemorrhage, extra-axial collection, mass effect, midline s hift, herniation or hydrocephalus. The ventricles, sulci and cisterns are age appropriate. The lopez -white differentiation is intact. The visualized paranasal sinuses and mastoid air cells are clear. The surrounding soft tissues and osseous structures are unremarkable. IMPRESSION: 1. No evidence of acute intracranial hemorrhage, mass effect or hydrocephalus.
[2024-12-04] MEDS: ONDANSETRON HCL 4 MG/2 ML VIAL IV ONE (20:55)
--- NOTE | 2024-12-04 21:05 | BSKYNEURO ---
[place] [facility] Note # Demographics Consult Type: General Neurology Patient Location: Emergency Room First Name: ZACHERY Silva Last Name: ARNOL Date of : 2005 Age: 19 Gender: Male Facility: [facility] Time of Initial Page (): 12/04/2024 20:37 First Contact with Site (): 12/04/2024 20:38 # HPI History: 19-year-old with history autism and seizures. last seizure was about a month ago presented to the ER after having about a 5-minute seizure at home and then multiple seizure like events in the ER. Was treated with ativan. Per his mother he is now back to baseline. # Exam Time of Exam (): 12/04/2024 20:46 Mental Status: - awake - follows commands Language: - no aphasia Cranial Nerves: - extra ocular movements intact - PERRLA - normal Motor: - normal strength Cerebellar: no gross ataxia # PMH-FH-SH Past Medical History: - seizure austism Social History: - non-smoker - non-drinker No THC Medications: xcopri 200mg daily Allergies: bad reaction to keppra # Assessment Impression: - Seizure # Plan Medication: increase xcopri to 250mg nightly Other: - If patient has any neurological deterioration please call back immediately # Logistics Attestation of consult completion: The patient is located at: [facility]. Facility staff participated in the visit. I performed this telemedicine visit from my offsite office utilizing interactive 2 way audio and visual telecommunication technology at the request of the onsite emergency room provider. # Demographics First Name: ZACHERY Silva Last Name: ARNOL Facility: [facility] Yes TOI MAYO Jr., MD Dec 04, 2024 21:05
[2024-12-04] MEDS: ONDANSETRON HCL 4 MG/2 ML VIAL ONE (21:06)
[2024-12-04 22:00] VITALS: BP 110/71; PULSE 83; RESP 17; O2SAT 97
[2024-12-04] MEDS ORDERED: CENO50TA PO (22:16)
[2024-12-04 22:24] LABS: Urine Amorphous Crystal FEW /hpf (None Seen); Urine Protein, UAD Negative (Negative)
[2024-12-05] MEDS ORDERED: CLON0.2D6 PO (18:56)
[2024-12-05] MEDS ORDERED: LORA-622 PO (18:56)
[2024-12-05] MEDS ORDERED: CHOL20007 PO (18:56)
[2024-12-05] MEDS ORDERED: MAGN400T40 PO (18:56)
[2024-12-05] MEDS ORDERED: CENO200T PO (18:56)
== END 2024-12-04 22:40 | disposition home or self-care (01) ==
LOC: EDBD 18:01 → ER 18:01
DX: G40.909 Epilepsy, unspecified, not intractable, without status epilepticus (principal); J45.909 Unspecified asthma, uncomplicated; Z90.89 Acquired absence of other organs
CPT/HCPCS: 36415; 70450; 80053; 81001; 82947; 85025; 96365; 96375; 99285; J2060; J2250; J2405; J2560; 82962; J0131

== ENCOUNTER 2024-12-05 09:56 | Inpatient (IN) | payer MEDICAID ==
[2024-12-05] VITALS (41 sets, daily range): BP systolic 96–140; BP diastolic 38–63; PULSE 66–133; RESP 8–17; TEMP 98; O2SAT 74–100
[~2024-12-05] VITALS: Ht 185.4 cm; Wt 103.1 kg
[~2024-12-05 09:56] MED LIST changes: +CENO50TA PO
[2024-12-05] MEDS: MIDAZOLAM HCL 10 ML IV ONE (10:08)
[2024-12-05] MEDS: MIDAZOLAM HCL 5 MG/ML-1ML VIAL IV ONE (10:08)
[2024-12-05] MEDS: MIDAZOLAM HCL 5 MG/ML-1ML VIAL IM ONE (10:08)
[2024-12-05] MEDS: ROCURONIUM 10MG/ML 10ML VIAL IV ONE ×2 (10:08)
[2024-12-05] MEDS: PROPOFOL 100 ML IV SCH (10:18)
[2024-12-05] MEDS: PROPOFOL 100 ML IV ONE (10:18)
[2024-12-05] MEDS: MIDAZOLAM DRIP 100 mg/100mL NS 100 ML IV ONE (10:50)
[2024-12-05] MEDS: MIDAZOLAM DRIP 100 mg/100mL NS 100 ML IV SCH (10:50)
--- NOTE | 2024-12-05 11:08 | DVH ---
XY CHEST PORTABLE, HISTORY: s/p intubation COMPARISON: XY CHEST PORTABLE on DOS: 10/26/24, XY CHEST PORTABLE on DOS: 10/04/24, XY CHEST PORTABLE o n DOS: 05/03/24 XY CHEST PORTABLE on DOS: 10/26/24, XY CHEST PORTABLE on DOS: 10/04/24, XY CHEST PORTABLE on DOS: TECHNICAL DATA: 1 view of the chest was obtained. FINDINGS: Lines and tubes: ET in the mid thoracic trachea, NG in the stomach. Cardiomediastinal silhouette: normal Pulmonary vasculature: normal Lung expansion: normal Lung airspace: normal Lung interstitium: normal Pleura: normal Pneumothorax: no Bones: Unremarkable Other: no IMPRESSION: ET in the mid thoracic trachea, NG in the stomach.
[2024-12-05 11:13] LABS: Hematocrit 47.9 % (41.0-53.0); Hemoglobin 16.2 g/dL (13.5-17.5); Mean Corpuscular Hemoglobin 30.0 pg (28.0-32.0); Mean Corpuscular Volume 88.9 fL (80.0-100.0); Nucleated Red Blood Cells % 0.0 %
[2024-12-05] MEDS: fentaNYL Drip 2500mCg/250mlNS 250 ML IV ONE (11:23)
[2024-12-05 11:27] LABS: Anion Gap 9 (5-15); Carbon Dioxide 26 mmol/L (20-31)
[2024-12-05 11:28] LABS: Calcium 9.7 mg/dL (8.7-10.4)
[2024-12-05] MEDS: fentaNYL Drip 2500mCg/250mlNS 250 ML IV SCH (11:30)
[2024-12-05 11:32] LABS: Glucose 100 mg/dL (74-106)
[2024-12-05 11:33] LABS: BUN/Creatinine Ratio 14.8 (10.0-20.0); Blood Urea Nitrogen 12 mg/dL (9-23)
[2024-12-05 11:41] LABS: Chloride 104 mmol/L (98-107); Potassium 3.9 mmol/L (3.5-5.1); Sodium 139 mmol/L (136-145)
[2024-12-05 11:41] LABS: Base Excess 0.6 mmol/L (-2.0-3.0)
[2024-12-05 11:47] LABS: Lactic Acid w/Reflex 2.5 mmol/L (0.4-2.0)
[2024-12-05 14:02] LABS: Urine Protein, UAD TRACE (Negative)
[2024-12-05] MEDS: SODIUM CHLORIDE 0.9% 1,000 ML IV ONE ×2 (14:15→15:30)
[2024-12-05] MEDS: levETIRAcetam 1000 mg/100ml 100 ML IV ONE (14:15)
--- NOTE | 2024-12-05 15:21 | DVH ---
CLINICAL HISTORY: seizure TECHNIQUE: Helical scanning was performed of the head from the skull base to the vertex. Multiplanar reconstructions were performed. This exam was performed according to our departmental dose optimizat ion program. Up-to-date CT equipment and radiation dose reduction techniques are utilized as appropri ate. CTDI 70 DLP 1374 COMPARISON: CT HEAD WITHOUT CONTRAST on DOS: 12/04/24, CT HEAD WITHOUT CONTRAST on DOS: 10/03/24, CT C ERVICAL WITHOUT CONTRAST on DOS: 05/03/24, CT HEAD WITHOUT CONTRAST on DOS: 05/03/24, CT BRAIN on DOS: 01/04/24 FINDINGS: There is no evidence for acute intracranial hemorrhage, acute ischemic changes, mass, mass effect, or extra-axial fluid collection. There is no hydrocephalus or midline shift. There is no effacement of the cerebral sulci and basal subarachnoid cisterns. The lopez-white matter differentiation is well narayan ntained. The imaged paranasal sinuses are clear. The partially imaged endotracheal and nasogastric tubes. IMPRESSION: NO ACUTE INTRACRANIAL ABNORMALITY SEEN.
[2024-12-05] MEDS ORDERED: NITROGLYCERIN 0.4 MG SL TAB SL PRN (15:30)
[2024-12-05] MEDS ORDERED: ONDANSETRON HCL 4 MG/2 ML VIAL IV PRN (15:30)
[2024-12-05] MEDS ORDERED: MORPHINE SULFATE INJ 2 MG/ml SYRG IV PRN (15:30)
[2024-12-05] MEDS ORDERED: CLON0.2D6 PO (18:56)
[2024-12-05] MEDS ORDERED: MAGN400T40 PO (18:56)
[2024-12-05] MEDS ORDERED: LORA-622 PO (18:56)
[2024-12-05] MEDS ORDERED: CHOL20007 PO (18:56)
[2024-12-05] MEDS ORDERED: CENO200T PO (18:56)
[2024-12-05] MEDS: PHENobarbital SODIUM INJ 260 MG in SODIUM CHL 0.9% 100 ML IV ONE (21:59)
[2024-12-05] MEDS ORDERED: XCOPRI PO SCH (22:00)
[2024-12-05] MEDS: XCOPRI 200 MG PO SCH (22:20)
[2024-12-06] VITALS (105 sets, daily range): BP systolic 96–127; BP diastolic 37–69; PULSE 68–147; RESP 12–26; TEMP 98.1–102.7; O2SAT 93–100
[2024-12-06] MEDS: ACETAMINOPHEN 325 MG TAB PO PRN (01:58)
[2024-12-06 04:16] LABS: Hematocrit 43.1 % (41.0-53.0); Hemoglobin 14.6 g/dL (13.5-17.5); Mean Corpuscular Hemoglobin 30.4 pg (28.0-32.0); Mean Corpuscular Volume 89.4 fL (80.0-100.0); Nucleated Red Blood Cells % 0.1 %
[2024-12-06 04:43] LABS: Alanine Aminotransferase 22 U/L (7-40); Albumin 4.2 g/dL (3.2-4.8); Alkaline Phosphatase 93 U/L (46-116); Anion Gap 12 (5-15); BUN/Creatinine Ratio 8.4 (10.0-20.0); Calcium 8.9 mg/dL (8.7-10.4); Carbon Dioxide 26 mmol/L (20-31); Chloride 104 mmol/L (98-107); Glucose 91 mg/dL (74-106); Potassium 3.8 mmol/L (3.5-5.1); Sodium 142 mmol/L (136-145); Total Protein 6.4 g/dL (5.7-8.2)
[2024-12-06 04:44] LABS: Bilirubin, Total 0.3 mg/dL (0.2-1.0); Blood Urea Nitrogen 8 mg/dL (9-23)
--- NOTE | 2024-12-06 04:50 | DVH ---
CHEST RADIOGRAPH Indication: MECHANICAL VENTILATION Technique: 1 view Comparison: XY CHEST PORTABLE on DOS: 12/05/24, XY CHEST PORTABLE on DOS: 10/26/24, XY CHEST PORTABLE on DOS: 10/04/24, XY CHEST PORTABLE on DOS: 05/03/24, XR CHEST 1 VIEW on DOS: 10/11/23 FINDINGS: Lines and Tubes: Unchanged. Lungs/Pleura: Unchanged. Cardiomediastinum: Unchanged. Other: Unchanged osseous structures. IMPRESSION: No significant change from the previous study. Stable support devices and perihilar opacities.
[2024-12-06 06:43] LABS: Base Excess -2.3 mmol/L (-2.0-3.0)
[2024-12-06] MEDS ORDERED: LORazepam 2MG/ML-1ML VIAL IV PRN (09:15)
[2024-12-06] MEDS: PANTOPRAZOLE 40 MG/10 ML VIAL INJ IV SCH (09:46)
[2024-12-06] MEDS: ENOXAPARIN SOD 40 MG/0.4 ML SYRINGE SC SCH (09:46)
[2024-12-06] MEDS: PIPERACILLIN-TAZOB 3.375GM 100 ML IV ONE (09:53)
--- NOTE | 2024-12-06 11:07 | ED.PDOC ---
HPI (NEURO) HPI Comments This is a 19 year old male JOLENEA presenting to the ED with chief complaint of seizure. EMS reports patient was witnessed by family to have a seizure today and when patient was en route to the ED, patient had an apneic episode for 30 seconds. EMS relays patient is now showing respiratory distress and difficulty breathing. EMS states patient is non-verbal due to history of autism. Patient unable to answer questions at this time. Time Seen by MD: 10:16 Primary Care Provider: UNKNOWN Reviewed Notes: Nurses Notes, Machine Packer Notes, Medications, Allergies Information Source: Patient, Emergency Med Personnel Mode of Arrival: EMS Severity: Severe Timing: Hours Duration: Since onset Prehospital treatment: Oxygen Seizure Quality: Tonic-clonic Seizure Location: Generalized Onset: At rest Circumstances: Spontaneous History of: Seizure Disorder Past Medical History PAST MEDICAL HISTORY: Asthma, Seizures Past Medical History (Other): Autism Surgical History: Tonsillectomy Family History Family History: Reviewed,noncontributory to illness, No family hx of Cancer Social History Smoker: Non-Smoker Alcohol: Denies ETOH Use Drugs: Denies Drug Use Lives In: Home Constitutional: denies: chills, diaphoresis, fatigue, fever, malaise, sweats, weakness, others EENTM: denies: blurred vision, double vision, ear bleeding, ear discharge, ear drainage, ear pain, ear ringing, eye pain, eye redness, hearing loss, mouth pain, mouth swelling, nasal discharge, nose bleeding, nose congestion, nose pain, photophobia, tearing, throat pain, throat swelling, voice changes, others Respiratory: reports: shortness of breath; denies: cough, hemoptysis, orthopnea, SOB at rest, SOB with excertion, stridor, wheezing, others Cardiovascular: denies: chest pain, dizzy spells, diaphoresis, Dyspnea on exertion, edema, irregular heart beat, left arm pain, lightheadedness, palpitations, PND, syncope, others Gastrointestinal: denies: abdomen distended, abdominal pain, blood streaked bowels, constipated, diarrhea, dysphagia, difficulty swallowing, hematemesis, melena, nausea, poor appetite, poor fluid intake, rectal bleeding, rectal pain, vomiting, others Genitourinary: denies: burning, dysuria, flank pain, frequency, hematuria, incontinence, penile discharge, penile sore, pain, testicle pain, testicle swelling, urgency, others Neurological: reports: seizure; denies: dizziness, fainting, headache, left sided numbness, left sided weakness, numbness, paresthesia, pre-existing deficit, right sided numbness, right sided weakness, speech problems, tingling, tremors, weakness, others Musculoskeletal: denies: back pain, gout, joint pain, joint swelling, muscle pain, muscle stiffness, neck pain, others Integumetry: denies: bruises, change in color, change in hair/nails, dryness, laceration, lesions, lumps, rash, wounds, others Allergic/Immunocompromised: denies: Difficulty Healing, Frequent Infections, Hives, Itching, others Hematologic/Lymphatic: denies: anemia, blood clots, easy bleeding, easy bruising, swollen glands, others Endocrine: denies: excessive hunger, excessive sweating, excessive thirst, excessive urination, flushing, intolerance to cold, intolerance to heat, unexplained weight gain, unexplained weight loss, others Psychiatric: denies: anxiety, bipolar disorder, depression, hopeless, panic disorder, schizophrenia, sleepless, suicidal, others Unable to Obtain due to: Altered Mental Status, Intubated All Other Systems: Reviewed and Negative Physical Exam General Appearance: Severe Distress HEENT: Normal ENT Inspection, Pharynx Normal, TMs Normal Neck: Full Range of Motion, Non-Tender, Normal, Normal Inspection Respiratory: Chest Non-Tender, Lungs Clear, No Accessory Muscle Use, No Respiratory Distress, Normal Breath Sounds Cardiovascular: No Edema, No JVD, No Murmur, No Gallop, Normal Peripheral Pulses, Regular Rate/Rhythm Breast Exam: Deferred Gastrointestinal: No Organomegaly, Non Tender, No Pulsatile Mass, Normal Bowel Sounds, Soft Genitalia: Deferred Pelvic: Deferred Rectal: Deferred Extremities: No calf tenderness, Normal capillary refill, Normal inspection, Normal range of motion, Non-tender, No pedal edema Musculoskeletal : Apperance: Normal Neurologic: Alert, milk deliverer II-XII nml as Tested, No Motor Deficits, Normal Affect, Normal Mood, No Sensory Deficits Cerebellar Function: Normal Reflexes: Normal Skin: Dry, Normal Color, Warm Lymphatic: No Adenopathy Was a procedure done? Was a procedure done?: Yes Sedation Sedation?: Yes Informed consent obtained: Yes Sedation start time: 10:10 Sedation end time: 10:15 Sedation total time: 5 minutes Sedation provider statement: 20mg of Versed and 100mg of Rocuronium used prior to intubation. Central Line Recorder of insertion practice: Dam Operator Occupation of jumpbasting armhole baster: Attending Physician Indication: Hypotension, CVP monitoring Room prepared for procedure: Yes Dam Operator performed hand hygien: Yes Maximal sterile barrier precau: Mask/Eye shield, Sterile gown, Cap, Sterlie gloves, Large sterlie drape Skin Preparation: Chlorhexidine gluconate Skin preparation completely dr: Yes Insertion site: Right, Femoral Central line catheter type: [id number] dialysis Number of lumens: 3 Central line exchanged over a: Yes Antiseptic ointment applied to: Yes Post Assessment: Proper placement Informed consent obtained: No Risks/benefits/alt described: No Intubation Indication: Respiratory Insufficiency, Altered Mental Status, Airway Protection Prep: Preoxygenation Pretreated with: Sedation Intubation Approach: Orotracheal Intubation size: cm (8) Informed consent obtained: Yes Risks/benefits/alt described: Yes Differential Diagnosis (SZ) Seizure: CVA/TIA, Hyponatremia, Hypoxemia, Idiopathic CVA: Encephalopathy, Hypoglycemia, Hypoxemia General Weakness: N/A X-Ray, Labs, Meds, VS Vital Signs Date Time Temp Pulse Resp B/P (MAP) Pulse Ox O2 Delivery O2 Flow Rate FiO2 12/05/24 14:00 70 16 101/48 (65) 100 12/05/24 13:30 73 16 103/51 (68) 99 12/05/24 13:30 103/51 12/05/24 13:30 103/51 12/05/24 13:30 103/51 12/05/24 13:27 72 16 115/61 (79) 98 35 12/05/24 13:00 72 16 105/55 (72) 99 12/05/24 13:00 105/55 12/05/24 13:00 117/64 12/05/24 12:30 78 16 113/61 (78) 97 12/05/24 12:30 113/61 12/05/24 12:30 113/61 12/05/24 12:30 113/61 12/05/24 12:10 115/65 12/05/24 12:00 82 16 117/64 (81) 99 12/05/24 11:59 91 16 119/63 98 50 12/05/24 11:47 91 16 119/63 (81) 98 50 12/05/24 11:30 124/72 12/05/24 11:30 149/75 12/05/24 11:30 149/75 12/05/24 11:30 105 16 123/65 (84) 99 12/05/24 10:57 114 13 149/75 (99) 99 12/05/24 10:50 149/75 12/05/24 10:26 98.3 9 24 131/82 96 98.3 12/05/24 10:18 149/75 12/05/24 10:14 123 16 124/54 (77) 100 70 12/05/24 10:08 121/54 12/05/24 10:05 89 8 85 Non-Rebreather 15 N/A 12/05/24 10:05 98.5 89 8 121/54 (76) 85 98.5 Lab Test 12/05/24 13:38 12/05/24 13:20 12/05/24 11:35 12/05/24 10:53 Range/Units Urine Color Light-yellow Yellow Urine Clarity Clear Clear Urine pH 6.5 5.0-9.0 Urine Specific [place] 1.020 1.001-1.035 Urine Protein Trace H Negative Urine Ketones Negative Negative Urine Blood Negative Negative /uL Urine Nitrite Negative Negative Urine Bilirubin Negative Negative Urine Urobilinogen Normal Negative mg/dL Urine Leukocyte Esterase Negative Negative /uL Urine RBC 1 0 - 3 /hpf Urine Microscopic WBC 1 0-3 /HPF Urine Squamous Epithelial Cells None seen <5 /hpf Urine Bacteria None seen None Seen /hpf Urine Glucose Normal Normal mg/dL Lactic Acid Level 1.1 2.5 *H 0.4-2.0 mmol/L Troponin I High Sensitivity < 3 L < 3 L </=54 ng/L Blood Gas Specimen Type Arterial Blood Gas Sample Site Right radial Blood Gas Patient Temperature 37.0 Arterial Blood Date Drawn [id number] Arterial Blood pH 7.388 7.350-7.450 Arterial Blood Partial Pressure CO2 44.0 35.0-48.0 mmHg Arterial Blood Partial Pressure O2 120.7 H 83.0-108.0 mmHg Arterial Blood HCO3 25.9 21.0-28.0 mmol/L Arterial Blood Oxygen Saturation 98.7 H 94.0-98.0 % Arterial Blood Base Excess 0.6 -2.0-3.0 mmol/L Arterial Blood Oxyhemoglobin 97.5 94.0-98.0 % Arterial Blood Carboxyhemoglobin 0.5 0.5-1.5 % Arterial Blood Methemoglobin 0.7 0.0-1.5 % Yohan Test Modified Blood Gas Total Hemoglobin 16.70 13.5-17.5 g/dL Blood Gas Set Respiration Rate 16.0 Blood Gas Modality Vent - ac FiO2 % 70.0 Blood Gas Tidal Volume 450.0 Blood Gas PEEP or CPAP 5.0 White Blood Count 7.5 4.4-10.8 10^3/uL Red Blood Count 5.39 4.5-5.90 10^6/uL Hemoglobin 16.2 13.5-17.5 g/dL Hematocrit 47.9 41.0-53.0 % Mean Corpuscular Volume 88.9 80.0-100.0 fL Mean Corpuscular Hemoglobin 30.0 28.0-32.0 pg Mean Corpuscular Hemoglobin Concent 33.8 32.0-36.0 g/dL Red Cell Distribution Width 12.4 11.8-14.3 % Platelet Count 151 140-450 10^3/uL Mean Platelet Volume 8.9 6.9-10.8 fL Neutrophils (%) (Auto) 69.5 37.0-80.0 % Lymphocytes (%) (Auto) 20.3 10.0-50.0 % Monocytes (%) (Auto) 8.7 0.0-12.0 % Eosinophils (%) (Auto) 1.1 0.0-7.0 % Basophils (%) (Auto) 0.4 0.0-2.0 % Neutrophils # (Auto) 5.2 1.6-8.6 10 ^3/uL Lymphocytes # (Auto) 1.5 0.4-5.4 10 ^3/uL Monocytes # (Auto) 0.6 0-1.3 10 ^3/uL Eosinophils # (Auto) 0.1 0-0.8 10 ^3/uL Basophils # (Auto) 0 0-0.2 10 ^3/uL Nucleated Red Blood Cells 0.0 % Sodium Level 139 136-145 mmol/L Potassium Level 3.9 3.5-5.1 mmol/L Chloride Level 104 98-107 mmol/L Carbon Dioxide Level 26 20-31 mmol/L Anion Gap 9 5-15 Blood Urea Nitrogen 12 9-23 mg/dL Creatinine 0.81 0.700-1.30 mg/dL Glomerular Filtration Rate Calc 129 >90 mL/min BUN/Creatinine Ratio 14.8 10.0-20.0 Serum Glucose 100 74-106 mg/dL Calcium Level 9.7 8.7-10.4 mg/dL Current Medications Medications (Trade) Dose Ordered Sig/Brett Route Start Time Stop Time Status Last Admin Propofol 100 ml @ 3 mls/hr Q24H IV 12/05/24 10:18 12/05/24 13:00 Midazolam HCl 100 ml @ 1 mls/hr Q24H IV 12/05/24 10:50 12/05/24 10:50 Midazolam HCl (Versed Injection) 10 mg ONCE ONCE IM 12/05/24 10:08 12/05/24 11:13 DC 12/05/24 10:08 Midazolam HCl (Versed Injection) 10 mg ONCE ONCE IV 12/05/24 10:08 12/05/24 11:13 DC 12/05/24 10:08 Rocuronium [place] 100 mg ONCE ONCE IV 12/05/24 10:08 12/05/24 11:13 DC 12/05/24 10:08 Fentanyl Citrate 250 ml @ 2.5 mls/hr Q24H IV 12/05/24 11:30 12/05/24 11:30 Time of 1ST Reevaluation: 11:14 Reevaluation 1ST: Unchanged Patient Education/Counseling: Diagnosis, Treatment Family Education/Counseling: No Family Present Departure 1 Departure Time of Disposition: 14:44 (Patient presented in status. Patient was emergently intubated and central line placed. We will admit patient to ICU for further workup) Impression: Primary Impression: Status epilepticus Disposition: ADMITTED INPATIENT Admit to: ICU Condition: Critical Critical Care Note Critical Care Time?: Yes Critical care comment: Status epilepticus Authorized and Performed by: Aida Kilpatrick MD Total critical care time: Approximately 119 minutes Due to a high probability of clinically significant, life threatening deterioration, the patient required my highest level of preparedness to intervene emergently and I personally spent this critical care time directly and personally managing the patient. This critical care time included obtaining a history; examining the patient; pulse oximetry; ordering and review of studies; arranging urgent treatment with development of a management plan; evaluation of patient's response to treatment; frequent reassessment; and, discussions with other providers. This critical care time was performed to assess and manage the high probability of imminent, life-threatening deterioration that could result in multi-organ failure. It was exclusive of separately billable procedures and treating other patients and teaching time. Please see my other sections and the rest of the note for further information on patient assessment and treatment. Stability Stability form required: No Heart Score Heart Score: Heart Score Response (Comments) Value History N/A 0 EKG N/A 0 Age N/A 0 Risk Factors N/A 0 Troponin N/A 0 Total 0 I personally scribed for AIDA KILPATRICK MD ([email or web address]) on 12/05/24 at 10:36. Electronically submitted by Benny Perez ([email or web address]). AIDA KILPATRICK MD Dec 05, 2024 10:36
--- NOTE | 2024-12-06 11:17 | DVHHP2 ---
History of Present Illness Reason for Visit: Seizure History of Present Illness 2 cm 19-year-old male presents for evaluation of seizure activity. Patient was seen yesterday in the emergency department for seizure activity and was assessed by and Nephrology was advised to increase his daily dose of Xcopri and the patient was discharged home in stable condition. Patient is currently sedated and intubated. Per mother was in the bedside today patient went into the restroom and she her for a noise when she went to check in on him she found him sitting on the ground having another seizure where he just had a blank on arrival to the emergency department patient was lethargic and became apneic, p atient was emergently intubated for airway protection.. Past Medical History Seizure, autism Past Surgical History Tonsillectomy Family History Noncontributory Smoke: No ALCOHOL: none Drugs: None Lives: with Family Review of Systems Review of Systems Review of systems can not be completed patient is sedated and intubated. Allergies: Coded Allergies: Flu Virus Vaccine (Unverified Allergy, Severe, 07/02/23) Latex (Unverified Allergy, Severe, 07/02/23) Levetiracetam (Verified Allergy, Intermediate, 01/26/24) Medications Current Medications Medications Dose Ordered Sig/Brett Route Start Time Stop Time Status Last Admin Dose Admin Propofol 100 ml @ 3 mls/hr Q24H IV 12/05/24 10:18 12/05/24 13:00 3 MLS/HR Midazolam HCl 100 ml @ 1 mls/hr Q24H IV 12/05/24 10:50 12/05/24 10:50 15 MLS/HR Fentanyl Citrate 250 ml @ 2.5 mls/hr Q24H IV 12/05/24 11:30 12/05/24 11:30 25 MLS/HR Exam Vital Signs Vital Signs Date Time Temp Pulse Resp B/P (MAP) Pulse Ox O2 Delivery O2 Flow Rate FiO2 12/05/24 14:00 70 16 101/48 (65) 100 12/05/24 13:27 35 12/05/24 10:26 98.3 98.3 12/05/24 10:05 Non-Rebreather 15 Exam Gen: Zosyn 19-year-old male in mild distress Skin: Warm, dry, normal color and texture, no rash. HEENT: Normocephalic atraumatic, mucous membranes moist and pink. Neck: Cervical and supraclavicular nodes normal without enlargement, trachea is midline, thyroid gland is normal without masses. Pulmonary: Intubated, diminished breath sounds bilaterally Cardiac: Regular rate and rhythm. No murmur Abdomen: Soft, nontender, nondistended, bowel sounds present all 4 quadrants, no guarding, no rigidity, no organomegaly. Extremities: No cyanosis, clubbing, no edema Neuro: Sedated Labs/Xrays ORDERING PHYSICIAN: AIDA LINDSEY MD PROCEDURE(s): CXRP - CHEST PORTABLE REASON: s/p intubation ORDER NUMBER(s): [id number], ACCESSION NUMBER(s): [id number] XY CHEST PORTABLE, HISTORY: s/p intubation COMPARISON: XY CHEST PORTABLE on DOS: 10/26/24, XY CHEST PORTABLE on DOS: 10/04/24, XY CHEST PORTABLE on DOS: 05/03/24 XY CHEST PORTABLE on DOS: 10/26/24, XY CHEST PORTABLE on DOS: 10/04/24, XY CHEST PORTABLE on DOS: 05/03/24 TECHNICAL DATA: 1 view of the chest was obtained. FINDINGS: Lines and tubes: ET in the mid thoracic trachea, NG in the stomach. Cardiomediastinal silhouette: normal Pulmonary vasculature: normal Lung expansion: normal Lung airspace: normal Lung interstitium: normal Pleura: normal Pneumothorax: no Bones: Unremarkable Other: no IMPRESSION: ET in the mid thoracic trachea, NG in the stomach. Labs Test 12/05/24 15:12 12/05/24 13:38 12/05/24 13:20 12/05/24 11:35 Range/Units Urine Color Light-yellow Yellow Urine Clarity Clear Clear Urine pH 6.5 5.0-9.0 Urine Specific [place] 1.020 1.001-1.035 Urine Protein Trace H Negative Urine Ketones Negative Negative Urine Blood Negative Negative /uL Urine Nitrite Negative Negative Urine Bilirubin Negative Negative Urine Urobilinogen Normal Negative mg/dL Urine Leukocyte Esterase Negative Negative /uL Urine RBC 1 0 - 3 /hpf Urine Microscopic WBC 1 0-3 /HPF Urine Squamous Epithelial Cells None seen <5 /hpf Urine Bacteria None seen None Seen /hpf Urine Glucose Normal Normal mg/dL Lactic Acid Level 1.1 0.4-2.0 mmol/L Blood Gas Specimen Type Arterial Blood Gas Sample Site Right radial Blood Gas Patient Temperature 37.0 Arterial Blood Date Drawn [id number] Arterial Blood pH 7.388 7.350-7.450 Arterial Blood Partial Pressure CO2 44.0 35.0-48.0 mmHg Arterial Blood Partial Pressure O2 120.7 H 83.0-108.0 mmHg Arterial Blood HCO3 25.9 21.0-28.0 mmol/L Arterial Blood Oxygen Saturation 98.7 H 94.0-98.0 % Arterial Blood Base Excess 0.6 -2.0-3.0 mmol/L Arterial Blood Oxyhemoglobin 97.5 94.0-98.0 % Arterial Blood Carboxyhemoglobin 0.5 0.5-1.5 % Arterial Blood Methemoglobin 0.7 0.0-1.5 % Yohan Test Modified Blood Gas Total Hemoglobin 16.70 13.5-17.5 g/dL Blood Gas Set Respiration Rate 16.0 Blood Gas Modality Vent - ac FiO2 % 70.0 Blood Gas Tidal Volume 450.0 Blood Gas PEEP or CPAP 5.0 Test 12/05/24 10:53 Range/Units White Blood Count 7.5 4.4-10.8 10^3/uL Red Blood Count 5.39 4.5-5.90 10^6/uL Hemoglobin 16.2 13.5-17.5 g/dL Hematocrit 47.9 41.0-53.0 % Mean Corpuscular Volume 88.9 80.0-100.0 fL Mean Corpuscular Hemoglobin 30.0 28.0-32.0 pg Mean Corpuscular Hemoglobin Concent 33.8 32.0-36.0 g/dL Red Cell Distribution Width 12.4 11.8-14.3 % Platelet Count 151 140-450 10^3/uL Mean Platelet Volume 8.9 6.9-10.8 fL Neutrophils (%) (Auto) 69.5 37.0-80.0 % Lymphocytes (%) (Auto) 20.3 10.0-50.0 % Monocytes (%) (Auto) 8.7 0.0-12.0 % Eosinophils (%) (Auto) 1.1 0.0-7.0 % Basophils (%) (Auto) 0.4 0.0-2.0 % Neutrophils # (Auto) 5.2 1.6-8.6 10 ^3/uL Lymphocytes # (Auto) 1.5 0.4-5.4 10 ^3/uL Monocytes # (Auto) 0.6 0-1.3 10 ^3/uL Eosinophils # (Auto) 0.1 0-0.8 10 ^3/uL Basophils # (Auto) 0 0-0.2 10 ^3/uL Nucleated Red Blood Cells 0.0 % Sodium Level 139 136-145 mmol/L Potassium Level 3.9 3.5-5.1 mmol/L Chloride Level 104 98-107 mmol/L Carbon Dioxide Level 26 20-31 mmol/L Anion Gap 9 5-15 Blood Urea Nitrogen 12 9-23 mg/dL Creatinine 0.81 0.700-1.30 mg/dL Glomerular Filtration Rate Calc 129 >90 mL/min BUN/Creatinine Ratio 14.8 10.0-20.0 Serum Glucose 100 74-106 mg/dL Calcium Level 9.7 8.7-10.4 mg/dL SEPSIS Sepsis Screen Date sepsis recognized/suspect: Dec 05, 2024 Time Sepsis recognized/suspect: 09 Recent Procedure: No On Antibiotic Therapy: No Respiratory Rate >20: Yes Heart Rate >90: Yes Temp<36 C (96.8 F) or >38.3 C: No SBP <90 or MAP <65 mmHG: No New Acute Mental Status Change: Yes Is the patient on CPAP, BIPAP,: No Physician Orders Head Without Contrast (12/05/24 10:24) Chest Portable (12/05/24 10:24) Troponin-I Hs (12/05/24 13:24) Ventilator Orders (12/05/24 10:26) Abg W/ Co-Ox (12/05/24 11:30) Respiratory Culture W/ Gs (12/05/24 10:28) Propofol (Diprivan) (12/05/24 10:18) Rass Sedation Scale Q1HR (12/05/24 10:41) Communication Order (12/05/24 10:50) Midazolam Drip 100 Mg/100ml Ns (Versed D (12/05/24 10:50) Fentanyl Drip 2500mcg/250mlns (12/05/24 11:30) Communication Order (12/05/24 10:50) Communication Order (12/05/24 11:22) Insert/Manage Urinary Catheter QSHIFT (12/05/24 13:10) (Nf) Xcopri (12/05/24 22:00) * Neurology Consult (12/05/24 15:18) NS (12/05/24 15:30) Admit (12/05/24 15:18) Ondansetron Hcl (Zofran) (12/05/24 15:30) Complete Blood Count (12/06/24 04:00) Comprehensive Metabolic Panel (12/06/24 04:00) Condition: Critical (12/05/24 15:18) Acetaminophen Tablet (Tylenol Tablet) (12/05/24 15:30) Bedrest With Bathroom Privileg (12/05/24 15:18) Nitroglycerin Sublingual (Ntrostat Subli (12/05/24 15:30) Morphine Sulfate Injection (12/05/24 15:30) Stat Ekg For Chest Pain (12/05/24 15:18) Notify Md Of Changes From Base (12/05/24 15:18) Credit Collections Manager For 24 Hours (12/05/24 15:18) Emergency Dysrhythmia Protocol (12/05/24 15:18) Rhythm Strips Once Every Shift (12/05/24 15:18) Oxygen By Nasal Cannula (12/05/24 15:18) Vital Signs Date Time Temp Pulse Resp B/P (MAP) Pulse Ox O2 Delivery O2 Flow Rate FiO2 12/05/24 14:00 70 16 101/48 (65) 100 12/05/24 13:30 73 16 103/51 (68) 99 12/05/24 13:30 103/51 12/05/24 13:30 103/51 12/05/24 13:30 103/51 12/05/24 13:27 72 16 115/61 (79) 98 35 12/05/24 13:00 72 16 105/55 (72) 99 12/05/24 13:00 105/55 12/05/24 13:00 117/64 12/05/24 12:30 78 16 113/61 (78) 97 12/05/24 12:30 113/61 12/05/24 12:30 113/61 12/05/24 12:30 113/61 12/05/24 12:10 115/65 10/30/25 12:00 82 16 117/64 (81) 99 12/05/24 11:59 91 16 119/63 98 50 12/05/24 11:47 91 16 119/63 (81) 98 50 12/05/24 11:30 124/72 12/05/24 11:30 149/75 12/05/24 11:30 149/75 12/05/24 11:30 105 16 123/65 (84) 99 12/05/24 10:57 114 13 149/75 (99) 99 12/05/24 10:50 149/75 12/05/24 10:26 98.3 9 24 131/82 96 98.3 12/05/24 10:18 149/75 12/05/24 10:14 123 16 124/54 (77) 100 70 12/05/24 10:08 121/54 12/05/24 10:05 89 8 85 Non-Rebreather 15 N/A 12/05/24 10:05 98.5 89 8 121/54 (76) 85 98.5 Laboratory Tests Test 12/05/24 10:53 12/05/24 13:20 Lactic Acid Level 2.5 mmol/L (0.4-2.0) *H 1.1 mmol/L (0.4-2.0) White Blood Count 7.5 10^3/uL (4.4-10.8) Medications Medications Dose Ordered Sig/Brett Route Start Time Stop Time Status Last Admin Dose Admin Fentanyl Citrate 250 ml @ 2.5 mls/hr Q24H IV 12/05/24 11:30 12/05/24 11:30 25 MLS/HR Midazolam HCl 10 mg ONCE ONCE IM 12/05/24 10:08 12/05/24 11:13 DC 12/05/24 10:08 10 MG Midazolam HCl 10 mg ONCE ONCE IV 12/05/24 10:08 12/05/24 11:13 DC 12/05/24 10:08 10 MG Midazolam HCl 100 ml @ 1 mls/hr Q24H IV 12/05/24 10:50 12/05/24 10:50 15 MLS/HR Propofol 100 ml @ 3 mls/hr Q24H IV 12/05/24 10:18 12/05/24 13:00 3 MLS/HR Rocuronium [place] 100 mg ONCE ONCE IV 12/05/24 10:08 12/05/24 11:13 DC 12/05/24 10:08 100 MG Sodium Chloride 1,000 ml @ 1,000 mls/hr Q1H ONCE IV 12/05/24 14:15 12/05/24 15:14 DC 12/05/24 14:15 1,000 MLS/HR Assessment/Plan Assessment/Plan Assessment Acute respiratory failure, intubated Breakthrough seizure History of autism Plan Admit the patient to ICU to the hospitalist Nephrology consultation Maintenance IV fluids Head CT pending Continue treatment per orders Total critical care time excluding procedures performed with a 50 minutes. Plan discussed with: Other My Orders Orders - LATRICIA SINCLAIR Procedure Category Date Status Time (Nf) Xcopri PHA 12/05/24 Transmitted 22:00 * Neurology Consult CONS 12/05/24 Transmitted 15:18 NS PHA 12/05/24 Transmitted 15:30 Admit ADMIT 12/05/24 Transmitted 15:18 Ondansetron Hcl PHA 12/05/24 Transmitted (Zofran) 15:30 Complete Blood Count LAB 12/06/24 Verified 04:00 Comprehensive LAB 12/06/24 Verified Metabolic Panel 04:00 Condition: Critical JOSE 12/05/24 Transmitted 15:18 Acetaminophen Tablet PHA 12/05/24 Transmitted (Tylenol Tablet) 15:30 Bedrest With Bathroom JOSE 12/05/24 Transmitted Privileg 15:18 Nitroglycerin PHA 12/05/24 Transmitted Sublingual (Ntrostat 15:30 Morphine Sulfate PHA 12/05/24 Transmitted Injection 15:30 Stat Ekg For Chest JOSE 12/05/24 Transmitted Pain 15:18 Notify Md Of Changes JOSE 12/05/24 Transmitted From Base 15:18 Credit Collections Manager For JOSE 12/05/24 Transmitted 24 Hours 15:18 Emergency Dysrhythmia JOSE 12/05/24 Transmitted Protocol 15:18 Rhythm Strips Once JOSE 12/05/24 Transmitted Every Shift 15:18 Oxygen By Nasal RT 12/05/24 Transmitted Cannula 15:18 Date of Service: Dec 05, 2024 Billing Provider: LATRICIA SINCLAIR Common Visit Codes: [id number] INP/OBS CARE (HIGH) LATRICIA SINCLAIR Dec 05, 2024 15:28
--- NOTE | 2024-12-06 13:52 | DVHPNRES ---
Progress Note Date Seen: Dec 06, 2024 Resident Creating Document: DEB MARTE RESIDENT Medical Necessity Reason Pt with a Central, PICC or Fol: No Subjective Review of Systems Patient is 19-year-old male who recently came to the emergency department for seizure activity was sent home from emergency department and found to have seizure-like activity noticed by his mother. EMS was called. During EMS transfer, patient was become apneic, requiring bag mask ventilation, had seizure-like activity at the time of initial evaluation in emergency department, patient had stiffening of extremity, altered and nonresponsive and requiring intubation early in the morning on 12/05/2024 for protection of airway. Past medical history: Seizures, autism, ADHD Past surgical history: Tonsillectomy Family history: None Personal history: Lives with family, studying in college. No history of drug, alcohol or any recreational drug use. Home medication:Xcorpi(Cenobamate) 12/05/24: Intubated for airway protection, continued on sedation and antiseizure medication xcorpi 12/06/24: Intubated, sedated. On Xcopri. Had temperature of 100.9 earlier morning. No any other new complaint. No other night event of seizure activity. Objective vital signs Vital Sign Date Time Temp Pulse Resp B/P (MAP) Pulse Ox O2 Delivery O2 Flow Rate FiO2 12/06/24 12:10 110/40 12/06/24 12:06 74 16 100 30 12/06/24 06:15 99.7 211.5 12/06/24 06:00 Mechanical Ventilator+ 12/05/24 10:05 15 Total Intake and Output 12/05/24 12/05/24 12/06/24 15:00 23:00 07:00 Intake Total 1091.0 ml 822.5 ml Output Total 425 ml 800 ml Balance 666.0 ml 22.5 ml medications Current Medications Medications Dose Ordered Sig/Brett Route Start Time Stop Time Status Last Admin Dose Admin Propofol 100 ml @ 3 mls/hr Q24H IV 12/05/24 10:18 12/06/24 12:10 30 MLS/HR Midazolam HCl 100 ml @ 1 mls/hr Q24H IV 12/05/24 10:50 12/06/24 11:12 15 MLS/HR Fentanyl Citrate 250 ml @ 2.5 mls/hr Q24H IV 12/05/24 11:30 12/06/24 06:15 32.5 MLS/HR Ondansetron HCl 4 mg Q4HP PRN IV 12/05/24 15:30 Acetaminophen 650 mg Q6HP PRN PO 12/05/24 15:30 12/06/24 01:58 650 MG Nitroglycerin 0.4 mg Q5MINP PRN SL 12/05/24 15:30 Morphine Sulfate 2 mg Q30M PRN IV 12/05/24 15:30 Patient Own Medication 250 mg HS PO 12/06/24 22:00 Lorazepam 1 mg Q5MINP PRN IV 12/06/24 09:15 Piperacillin Sod/ Tazobactam Sod 100 ml @ 25 mls/hr Q6H IV 12/06/24 15:00 Pantoprazole Sodium 40 mg DAILY IV 12/06/24 10:00 12/06/24 09:46 40 MG Enoxaparin Sodium 40 mg DAILY SC 12/06/24 10:00 12/06/24 09:46 40 MG Examination General Appearance: Intubated and sedated Head Exam: Normal inspection Neck Exam: Normal inspection. Non-tender. Normal alignment Pulmonary/Respiratory: Chest non-tender. Clear bilateral breath sounds Cardiovascular/Chest: Regular rate and rhythm. No murmurs. No JVD. Peripheral Pulses: 2+ Radial (R). 2+ Radial (L). 2+ Pedal (R). 2+ Pedal (L) Abdominal Exam: Normal bowel sounds. Soft. Nontender. No hepatospenomegaly. No masses Ankle Exam: Negative ankle edema Lower extremities: Negative lower extremity edema Neuro/Mental Status: Intubated and sedated laboratory and microbiology Laboratory Tests 12/06/24 03:22 Test 12/06/24 03:22 Range/Units Serum Glucose 91 74-106 mg/dL Microbiology Date/Time Source Procedure Growth Status 12/05/24 10:21 Sputum Gram Stain - Final Resulted 12/05/24 10:21 Sputum Respiratory Culture - Preliminary Resulted Problem List/Assessment/Plan Problem List/Assessment/Plan Neurology Seizures Altered mental status likely due to above Sedated -fentanyl and Versed -Xcorpi 200 mg po daily -CT head():NO ACUTE INTRACRANIAL ABNORMALITY SEEN. -Neurology consultation Current history of ADHD Autism -not on any medication at this point Respiratory Acute hypoxic respiratory failure due to possible aspiration pneumonia Aspiration pneumonia -IV Zosyn, vancomycin -chest x-ray: Prominent right lower lobe hilar opacification -temperature of 100 -pending pancultures -respiratory cultures growing moderate Gram-positive cocci in pairs and rare negative rods -off pressor at this point. If needed, initiate with norepinephrine drip -target map greater than 65 Nephrology Lactic acidosis likely due to seizures: Improved -lactic acid 2.5, 1.1 Recent history of UTI -pending urine culture Line: Right internal jugular on 12/05/2024 Intubated on 12/05/2024 Feeding via G-tube Tripp catheter PUD prophylaxis with Protonix DVT prophylaxis with Lovenox Goals of care discussed greater than 24 minutes, with mother. Full code status. Critical care time spent 84 minutes outside of procedure. Plan discussed with Plan discussed with: Other (Mother) My Orders My Orders Orders - DEB MARTE RESIDENT Procedure Category Date Status Time (Nf) Xcopri PHA 12/06/24 In Process 22:00 Lorazepam 2mg/Ml Inj PHA 12/06/24 In Process (Ativan Inj) 09:15 Piperacillin-Tazob PHA 12/06/24 In Process 3.375gm (Zosyn 3.375g 15:00 Pantoprazole PHA 12/06/24 In Process (Protonix) 10:00 Enoxaparin Sodium PHA 12/06/24 In Process (Lovenox) 10:00 Urine Bacterial VLADIMIR 12/06/24 In Process Culture 09:30 Dietary Evaluation Review Comments: Nutrition Recommendation: 1) EN Vital high protein @ 60ml/hr x 24hr(goal). Water flush 250ml Q6H if allowed, adjust PRN. TF at goal volume along with Propofol provide 2232 kcal (100%), 126gm protein (100%), and 2204 ml free water (including flush). 2) Consider TPN/PN if NPO>7 days 3) Monitor NPO status, lab values, weight trend, and I/O Expected Outcomes/Goals: Intake to meet >75% estimated needs Fu 2-3 days DEB MARTE RESIDENT Dec 06, 2024 13:51
[2024-12-06] MEDS ORDERED: VANCOMYCIN PER PHARMACY 0 MG IV SCH (14:00)
[2024-12-06] MEDS: PIPERACILLIN-TAZOB 3.375GM 100 ML IV SCH (15:03)
[2024-12-06] MEDS: VANCOMYCIN 1GM/250ML KIT 250 ML IV SCH (18:44)
[2024-12-06] MEDS: ACETAMINOPHEN IV 1000 MG/100ML (10MG/ML) IV ONE (20:00)
[2024-12-06] MEDS: PHENobarbital SODIUM INJ 260 MG in SODIUM CHL 0.9% 100 ML IV ONE (20:43)
[2024-12-06] MEDS ORDERED: XCOPRI PO SCH (22:00)
[2024-12-06] MEDS: XCOPRI 200 MG PO SCH (22:17)
--- NOTE | 2024-12-06 22:22 | DVHINCON2 ---
Date of service: Dec 06, [address] Darby Reason for Consultation Acute hypoxic respiratory failure requiring mechanical ventilator. History of Present Illness Patient is 19-year-old man with PMHx of seizures, ADHD, and autism who presented to the emergency department on 12/05/24 for seizure activity. Reports he was sent home from emergency department and found to have seizure-like activity noticed by his mother. EMS was called. During EMS transfer, patient became apneic, requiring bag mask ventilation. He had seizure-like activity at the time of initial evaluation in emergency department with stiffening of extremity, altered and nonresponsive and requiring intubation early in the morning on 12/05/2024 for protection of airway. Pulmonary consultation is requested for evaluation and management of acute hypoxic respiratory failure requiring mechanical ventilator. Review of Systems: Unable to obtain d/t intubated status Past medical history: Seizures, autism, ADHD Past surgical history: Tonsillectomy Family history: [place], thyroid disease, anemia. Social history: Lives with family, studying in college. No history of drug, alcohol or any recreational drug use. Medications: Reviewed. Allergies: Flu Virus Vaccine Latex Family History: FH: heart attack FH: thyroid disease FHx: anemia Allergies: Coded Allergies: Flu Virus Vaccine (Unverified Allergy, Severe, 07/02/23) Latex (Unverified Allergy, Severe, 07/02/23) Home Meds Active Scripts Albuterol Sulfate (Albuterol Sulfate Hfa) 108 Mcg/Act Aer, 108 MCG IN Q4HP PRN, #1 AER 1 Refill Prov:J LUIS BENÍTEZ PAC 10/26/24 Cephalexin Monohydrate (Cephalexin) 500 Mg Cap, 1 CAP PO QID for 10 Days, #40 CAP Prov:BRANDON ZULUAGA MD 09/21/24 Reported Medications Loratadine (Claritin) 10 Mg Tab, 1 TAB PO DAILY, #30 TAB 5 Refills 12/05/24 Cholecalciferol (VITAMIN D3) 2,000 Unit Tab, 1 TAB PO DAILY, #30 TAB 5 Refills 12/05/24 Magnesium Oxide (MAGNESIUM OXIDE) 400 Mg Tab, 1 TAB PO HS, #30 TAB 5 Refills 12/05/24 Clonidine Hydrochloride (Clonidine Hcl) 0.2 Mg/24 Hr Dis, 0.2 MG PO HS for 30 Days, MG 12/05/24 Cenobamate (Xcopri) 200 Mg Tab, 200 MG PO HS, TAB 12/05/24 Cenobamate (Xcopri) 50 Mg Tab, 50 MG PO DAILY for 30 Days, #30 TAB Take one pill daily in addition to the 200 mg tablets that you already have on hand 12/04/24 Current Medications Current Medications Medications (Trade) Dose Ordered Sig/Brett Route PRN Reason Start Time Stop Time Status Last Admin Patient Own Medication 250 mg HS PO 12/06/24 22:00 12/06/24 13:30 DC Lorazepam (Ativan Inj) 1 mg Q5MINP PRN IV SEIZURES 12/06/24 09:15 Piperacillin Sod/ Tazobactam Sod 100 ml @ 25 mls/hr Q6H IV 12/06/24 15:00 12/06/24 21:01 DC 12/06/24 15:03 Pantoprazole Sodium (Protonix) 40 mg DAILY IV 12/06/24 10:00 12/06/24 09:46 Enoxaparin Sodium (Lovenox) 40 mg DAILY SC 12/06/24 10:00 12/06/24 09:46 Patient Own Medication 200 mg HS PO 12/06/24 22:00 12/06/24 22:17 Enteral Nutritional Formula (Vital High Protein) 1,000 ml 30ML/HR GT 12/06/24 13:30 Vancomycin HCl 0 ml @ 0 mls/hr PER PHARMACY IV 12/06/24 14:00 Vancomycin HCl 250 ml @ 250 mls/hr Q1H IV 12/06/24 15:30 12/06/24 17:29 DC 12/06/24 19:54 Piperacillin Sod/ Tazobactam Sod 100 ml @ 25 mls/hr Q6H IV 12/07/24 02:00 Vancomycin HCl 350 ml @ 200 mls/hr Q12HR@0600,1800 IV 12/07/24 06:00 Vital Signs Vital Signs Date Time Temp Pulse Resp B/P (MAP) Pulse Ox O2 Delivery O2 Flow Rate FiO2 12/06/24 22:02 101 16 98/46 (63) 100 30 12/06/24 19:50 101.7 12/06/24 18:00 Mechanical Ventilator+ 12/05/24 10:05 15 Physical Exam Gen.: Patient lying in bed in medical ICU. Sedated, intubated on mechanical ventilator. Head: Normocephalic, atraumatic. Eyes: PERRLA. Ears: Normal external anatomy. Throat: Endotracheal tube and orogastric tube in place. Neck: Supple, trachea midline. Chest: Transmitted breath sounds bilaterally. Decreased air entry bilaterally. No wheezing. Bibasilar crackles. Cardiovascular: Positive S1, positive S2. Regular rate and rhythm. Abdomen: Positive bowel sounds in all 4 quadrants. Soft, nontender, nondistended. : Tripp in place. Normal external genitalia. Rectal: Deferred. Skin: Warm, dry. Intact. Extremities: 2+ radial pulses bilaterally. No lower extremity edema. Neuro: Sedated. Labs/Diagnostic Data Labs Test 12/06/24 06:38 12/06/24 03:22 12/05/24 15:12 12/05/24 13:38 Range/Units Blood Gas Specimen Type Arterial Blood Gas Sample Site Left radial Blood Gas Patient Temperature 37.0 Arterial Blood Date Drawn [id number] Arterial Blood pH 7.383 7.350-7.450 Arterial Blood Partial Pressure CO2 38.4 35.0-48.0 mmHg Arterial Blood Partial Pressure O2 97.6 83.0-108.0 mmHg Arterial Blood HCO3 22.4 21.0-28.0 mmol/L Arterial Blood Oxygen Saturation 97.3 94.0-98.0 % Arterial Blood Base Excess -2.3 L -2.0-3.0 mmol/L Arterial Blood Oxyhemoglobin 96.7 94.0-98.0 % Arterial Blood Carboxyhemoglobin 0.3 L 0.5-1.5 % Arterial Blood Methemoglobin 0.3 0.0-1.5 % Yohan Test Modified Blood Gas Total Hemoglobin 14.60 13.5-17.5 g/dL Blood Gas Set Respiration Rate 16.0 Blood Gas Modality Vent - ac FiO2 % 30.0 Blood Gas Tidal Volume 450.0 Blood Gas PEEP or CPAP 5.0 White Blood Count 8.9 4.4-10.8 10^3/uL Red Blood Count 4.82 4.5-5.90 10^6/uL Hemoglobin 14.6 13.5-17.5 g/dL Hematocrit 43.1 # 41.0-53.0 % Mean Corpuscular Volume 89.4 80.0-100.0 fL Mean Corpuscular Hemoglobin 30.4 28.0-32.0 pg Mean Corpuscular Hemoglobin Concent 34.0 32.0-36.0 g/dL Red Cell Distribution Width 12.6 11.8-14.3 % Platelet Count 139 L 140-450 10^3/uL Mean Platelet Volume 9.1 6.9-10.8 fL Neutrophils (%) (Auto) 67.4 37.0-80.0 % Lymphocytes (%) (Auto) 20.8 10.0-50.0 % Monocytes (%) (Auto) 10.3 0.0-12.0 % Eosinophils (%) (Auto) 1.2 0.0-7.0 % Basophils (%) (Auto) 0.3 0.0-2.0 % Neutrophils # (Auto) 6.0 1.6-8.6 10 ^3/uL Lymphocytes # (Auto) 1.9 0.4-5.4 10 ^3/uL Monocytes # (Auto) 0.9 0-1.3 10 ^3/uL Eosinophils # (Auto) 0.1 0-0.8 10 ^3/uL Basophils # (Auto) 0 0-0.2 10 ^3/uL Nucleated Red Blood Cells 0.1 % Sodium Level 142 136-145 mmol/L Potassium Level 3.8 3.5-5.1 mmol/L Chloride Level 104 98-107 mmol/L Carbon Dioxide Level 26 20-31 mmol/L Anion Gap 12 5-15 Blood Urea Nitrogen 8 L 9-23 mg/dL Creatinine 0.95 0.700-1.30 mg/dL Glomerular Filtration Rate Calc 117 >90 mL/min BUN/Creatinine Ratio 8.4 L 10.0-20.0 Serum Glucose 91 74-106 mg/dL Calcium Level 8.9 8.7-10.4 mg/dL Magnesium Level 1.9 1.6-2.6 mg/dL Total Bilirubin 0.3 0.2-1.0 mg/dL Aspartate Amino Transferase (AST) 25 13-40 U/L Alanine Aminotransferase (ALT) 22 7-40 U/L Alkaline Phosphatase 93 46-116 U/L Total Protein 6.4 5.7-8.2 g/dL Albumin 4.2 3.2-4.8 g/dL Troponin I High Sensitivity < 3 L </=54 ng/L Urine Color Light-yellow Yellow Urine Clarity Clear Clear Urine pH 6.5 5.0-9.0 Urine Specific [place] 1.020 1.001-1.035 Urine Protein Trace H Negative Urine Ketones Negative Negative Urine Blood Negative Negative /uL Urine Nitrite Negative Negative Urine Bilirubin Negative Negative Urine Urobilinogen Normal Negative mg/dL Urine Leukocyte Esterase Negative Negative /uL Urine RBC 1 0 - 3 /hpf Urine Microscopic WBC 1 0-3 /HPF Urine Squamous Epithelial Cells None seen <5 /hpf Urine Bacteria None seen None Seen /hpf Urine Glucose Normal Normal mg/dL Test 12/05/24 13:20 Range/Units Lactic Acid Level 1.1 0.4-2.0 mmol/L Microbiology Date/Time Source Procedure Growth Status 12/06/24 02:53 Nose MRSA Screen - Final Complete 12/05/24 10:21 Sputum Gram Stain - Final Resulted 12/05/24 10:21 Sputum Respiratory Culture - Preliminary Resulted Assessment Impression: Acute hypoxic respiratory failure On mechanical ventilator Seizures Altered mental status ADHD Autism Plan: s/p intubation on mechanical ventilator. CXR image and report reviewed. Devices in place. ABG reviewed, compensated On AC mode; RR 16, VT 450, PEEP 5, FiO2 30% Titrate FIO2 to keep O2 saturation above 90%. VAP bundle. Daily ABG and CXR while intubated Sedate for ventilator synchrony Continue antibiotics. Antiepileptic medication Follow up Neuro recs Pressors for hemodynamic support Titrate to keep mean arterial pressure greater than 65 mmHg. Monitor renal function Monitor electrolytes. Supplement as necessary. Monitor ins and outs. Maintain euvolemia. GI prophylaxis. DVT prophylaxis. Prognosis: Poor given patient's multiple co-morbidities. Condition: Critical Rest of plan per hospitalist and other consultants. A total of 35 minutes of critical care time was spent reviewing the patient record, examining the patient, making a diagnostic and therapeutic plan, discussing this plan with the medical personnel, following up on diagnostic studies and following the patient for clinical stability excluding any and all procedures. At least 50% of this time was spent in direct, [id number] contact. Thank you, Dr. Darby, for allowing me to participate in this patient's care. Further recommendations will depend on the patient's clinical course. Please do not hesitate to contact me if you have any questions or concerns. This medical document was created using an electronic medical record system with [employer] system. Although these documentations are being carefully reviewed, there may still be some phonetic and typographical changes. The errors are purely typographical, due to imperfection on the software program, and do not reflect any compromise in the patient's medical care. Plan discussed with: Other (RN/MD, mother) Visit Coding Pulmonary Billing Provider: ERINN FUCHS MD Date of Service if different f: Dec 06, 2024 Common Visit Codes: 41103-XSZKBHIP CARE 30-74 MIN ERINN FUCHS MD Dec 06, 2024 22:22
[2024-12-07] VITALS (100 sets, daily range): BP systolic 90–130; BP diastolic 42–70; PULSE 74–125; RESP 12–24; TEMP 96.6–99.7; O2SAT 96–100
[2024-12-07] MEDS: PIPERACILLIN-TAZOB 3.375GM 100 ML IV SCH (02:09)
[2024-12-07 04:13] LABS: Hematocrit 40.9 % (41.0-53.0); Hemoglobin 14.1 g/dL (13.5-17.5); Mean Corpuscular Hemoglobin 30.5 pg (28.0-32.0); Mean Corpuscular Volume 88.5 fL (80.0-100.0); Nucleated Red Blood Cells % 0.0 %
[2024-12-07 04:21] LABS: Anion Gap 11 (5-15); Carbon Dioxide 23 mmol/L (20-31); Chloride 106 mmol/L (98-107); Sodium 140 mmol/L (136-145)
[2024-12-07 04:22] LABS: Calcium 8.7 mg/dL (8.7-10.4)
[2024-12-07 04:27] LABS: BUN/Creatinine Ratio 7.8 (10.0-20.0); Blood Urea Nitrogen 10 mg/dL (9-23); Glucose 78 mg/dL (74-106)
[2024-12-07 04:38] LABS: Potassium 3.3 mmol/L (3.5-5.1)
--- NOTE | 2024-12-07 05:43 | DVH ---
CHEST RADIOGRAPH Indication: on vent Technique: Single frontal view of the chest was obtained COMPARISON: XY CHEST PORTABLE on DOS: 12/06/24, XY CHEST PORTABLE on DOS: 12/05/24, XY CHEST PORTABLE on DOS: 10/26/24, XY CHEST PORTABLE on DOS: 10/04/24, XY CHEST PORTABLE on DOS: 05/03/24 FINDINGS: Lines and Tubes: Slight interval advancement of the endotracheal tube such that the tip now projects approximately 2.6 cm above the level of the bree. Enteric catheter unchanged. Lungs: Clear Pleura: No effusion. No pneumothorax. Cardiomediastinal contours: Unremarkable Bones: Unremarkable IMPRESSION: 1. Interval advancement of the endotracheal tube such that the tip now projects approximately 2.6 cm above the level of the bree. Enteric catheter unchanged. 2. No acute cardiopulmonary process.
[2024-12-07] MEDS: VANCOMYCIN 1.75GM/350ML IV SCH (06:00)
[2024-12-07] MEDS: POTASSIUM CHL 20MEQ/100ML 100 ML IV SCH (06:35)
[2024-12-07 07:41] LABS: Base Excess -5.3 mmol/L (-2.0-3.0)
[2024-12-07] MEDS: MAGNESIUM SULFATE 1GM/100ML 100 ML IV ONE (09:19)
--- NOTE | 2024-12-07 10:34 | ECG ---
[facility] Test Date: 2024-12-06 Test Time: 19:15:25 Pat Name: ZACHERY AMBROSE Department: icu Room: [address] [place] [address] A Gender: M Avionics Electrical Engineer: ulises : 2005 Requested By: PLACIDO WEEMS Order Number: [id number] Reading MD: Neo Calixto Measurements Intervals [place] Rate: 132 P: 36 OR: 144 QRS: 37 QRSD: 93 T: 7 QT: 292 QTc: 433 Interpretive Statements Sinus tachycardia Low voltage, precordial leads Consider anterior infarct Electronically Signed On 12-10-2024 13:06:21 PST by Neo Calixto Please click the below link to view image of tracing.
--- NOTE | 2024-12-07 14:58 | DVHPNRES ---
Progress Note Date Seen: Dec 07, 2024 Resident Creating Document: DEB MARTE RESIDENT Medical Necessity Reason Pt with a Central, PICC or Fol: No Subjective Review of Systems Patient is 19-year-old male who recently came to the emergency department for seizure activity was sent home from emergency department and found to have seizure-like activity noticed by his mother. EMS was called. During EMS transfer, patient was become apneic, requiring bag mask ventilation, had seizure-like activity at the time of initial evaluation in emergency department, patient had stiffening of extremity, altered and nonresponsive and requiring intubation early in the morning on 12/05/2024 for protection of airway. Past medical history: Seizures, autism, ADHD Past surgical history: Tonsillectomy Family history: None Personal history: Lives with family, studying in college. No history of drug, alcohol or any recreational drug use. Home medication:Xcorpi(Cenobamate) 12/05/24: Intubated for airway protection, continued on sedation and antiseizure medication xcorpi 12/06/24: Intubated, sedated. On Xcopri. Had temperature of 100.9 earlier morning. No any other new complaint. No other night event of seizure activity. 12/07/24: Intubated. Episode of possible seizure likely absent seizure. had elevated temperature. was given phenobarbital. No other night events Objective vital signs Vital Sign Date Time Temp Pulse Resp B/P (MAP) Pulse Ox O2 Delivery O2 Flow Rate FiO2 12/07/24 14:01 80 16 106/58 (74) 100 30 12/07/24 12:15 99.3 210.7 12/07/24 12:00 Mechanical Ventilator+ 12/05/24 10:05 15 Total Intake and Output 12/06/24 12/06/24 12/07/24 15:00 23:00 07:00 Intake Total 692.5 ml 1345.0 ml 825 ml Output Total 850 ml 1020 ml Balance 692.5 ml 495.0 ml -195 ml medications Current Medications Medications Dose Ordered Sig/Brett Route Start Time Stop Time Status Last Admin Dose Admin Propofol 100 ml @ 3 mls/hr Q24H IV 12/05/24 10:18 12/07/24 12:44 30 MLS/HR Midazolam HCl 100 ml @ 1 mls/hr Q24H IV 12/05/24 10:50 11/1/25 11:24 15 MLS/HR Fentanyl Citrate 250 ml @ 2.5 mls/hr Q24H IV 12/05/24 11:30 12/07/24 06:37 35 MLS/HR Acetaminophen 650 mg Q6HP PRN PO 12/05/24 15:30 12/06/24 18:39 650 MG Lorazepam 1 mg Q5MINP PRN IV 12/06/24 09:15 Pantoprazole Sodium 40 mg DAILY IV 12/06/24 10:00 12/07/24 11:10 40 MG Enoxaparin Sodium 40 mg DAILY SC 12/06/24 10:00 12/07/24 11:11 40 MG Patient Own Medication 200 mg HS PO 12/06/24 22:00 12/06/24 22:17 200 MG Enteral Nutritional Formula 1,000 ml 30ML/HR GT 12/06/24 13:30 Vancomycin HCl 0 ml @ 0 mls/hr PER PHARMACY IV 12/06/24 14:00 Piperacillin Sod/ Tazobactam Sod 100 ml @ 25 mls/hr Q6H IV 12/07/24 02:00 12/07/24 13:36 25 MLS/HR Vancomycin HCl 250 ml @ 200 mls/hr Q12HR@0600,1800 IV 12/07/24 18:00 Examination General Appearance: Intubated and sedated Head Exam: Normal inspection Neck Exam: Normal inspection. Non-tender. Normal alignment Pulmonary/Respiratory: Chest non-tender. Clear bilateral breath sounds Cardiovascular/Chest: Regular rate and rhythm. No murmurs. No JVD. Peripheral Pulses: 2+ Radial (R). 2+ Radial (L). 2+ Pedal (R). 2+ Pedal (L) Abdominal Exam: Normal bowel sounds. Soft. Nontender. No hepatospenomegaly. No masses Ankle Exam: Negative ankle edema Lower extremities: Negative lower extremity edema Neuro/Mental Status: Intubated and sedated laboratory and microbiology Laboratory Tests 12/07/24 03:25 Test 12/07/24 03:25 Range/Units Serum Glucose 78 74-106 mg/dL Microbiology Date/Time Source Procedure Growth Status 12/06/24 09:45 Urine - Tripp Port Urine Culture - Preliminary Resulted 12/06/24 02:53 Nose MRSA Screen - Final Complete 12/05/24 10:21 Sputum Gram Stain - Final Resulted 12/05/24 10:21 Sputum Respiratory Culture - Preliminary Resulted Problem List/Assessment/Plan Problem List/Assessment/Plan Neurology Seizures Altered mental status likely due to above Sedated -fentanyl and Versed -Xcorpi 250 mg po daily -CT head():NO ACUTE INTRACRANIAL ABNORMALITY SEEN. -Neurology consultation Current history of ADHD Autism -not on any medication at this point Respiratory Acute hypoxic respiratory failure due to possible aspiration pneumonia Aspiration pneumonia -IV Zosyn, vancomycin -chest x-ray: Prominent right lower lobe hilar opacification -temperature of 100 -pending pancultures -respiratory cultures growing moderate Gram-positive cocci in pairs and rare negative rods -off pressor at this point. If needed, initiate with norepinephrine drip -target map greater than 65 Nephrology Lactic acidosis likely due to seizures: Improved -lactic acid 2.5, 1.1 Recent history of UTI -pending urine culture Line: Right internal jugular on 12/05/2024 Intubated on 12/05/2024 Feeding via G-tube Tripp catheter PUD prophylaxis with Protonix DVT prophylaxis with Lovenox Goals of care discussed greater than 24 minutes, with mother. Full code status. Critical care time spent 83 minutes outside of procedure. Plan discussed with Plan discussed with: Other (Mother and RN) My Orders My Orders Orders - DEB MARTE RESIDENT Procedure Category Date Status Time Chest Xray 1 View XY 12/07/24 Resulted 04:00 Abg W/ Co-Ox RT 12/07/24 Logged 04:00 Piperacillin-Tazob PHA 12/07/24 In Process 3.375gm (Zosyn 3.375g 02:00 Vancomycin Per [facility] 12/06/24 In Process Pharmacy Protoc 21:00 Basic Metabolic Panel LAB 12/08/24 Verified 05:00 Complete Blood Count LAB 12/08/24 Verified 05:00 Vancomycin 1gm/250ml PHA 12/07/24 In Process Kit 18:00 Vancomycin,Trough LAB 12/09/24 Verified 05:00 Vancomycin Per [facility] 12/07/24 In Process Pharmacy Protoc 18:00 Dietary Evaluation Review Comments: Nutrition Recommendation: 1) EN Vital high protein @ 60ml/hr x 24hr(goal). Water flush 250ml Q6H if allowed, adjust PRN. TF at goal volume along with Propofol provide 2232 kcal (100%), 126gm protein (100%), and 2204 ml free water (including flush). 2) Consider TPN/PN if NPO>7 days 3) Monitor NPO status, lab values, weight trend, and I/O Expected Outcomes/Goals: Intake to meet >75% estimated needs Fu 2-3 days DEB MARTE RESIDENT Dec 07, 2024 14:58
[2024-12-07] MEDS: Vital High Protein 1liter Bottle GT SCH (15:43)
[2024-12-07] MEDS: VANCOMYCIN 1GM/250ML KIT 250 ML IV SCH (17:47)
--- NOTE | 2024-12-07 18:27 | DVHINCON2 ---
Date of service: Dec 07, 2024 Referring Physician Herman Reason for Consultation Status epileptics History of Present Illness Mr. Adams is a 19 years old right-handed gentleman with a history of autism, ADHD, vera meningitis, seizure disorder, he was brought to the [facility] on 12/05/2024 with a chief complaint of seizure activity. At this time, he is sedated, intubated, nonresponsive to stroke painful stimuli, the history is obtained from his mother, I have also reviewed chart and talked to his nurse He has a history of seizure disorder, that will be further described. On 11/18/2024, mother found him sitting on the floor in the bathroom staring out without convulsion, He was not responsive to chest rubbing when the EMS came over, according to ER note, the patient has had more seizure activity and he was intubated He developed episodic event in that he spaces out with nonresponsiveness to his surroundings in the age of [age] and soon after he was diagnosed with seizure disorder, he has seen many doctors, and has had a lot of testing, his current neurologist is Dr. Monika Willingham, he was on Xcopri 200mg for 2 years which helped because the seizure was less frequent, there was no treatment side effects In the hospital, the Xcopri has been increased to 250 mg daily Fentanyl 350 mcg/hour, propofol 45 mcg/minute, Versed 15 mg/our ABG 12/07/2024: Compensated metabolic acidosis Urinalysis, 12/05/2024: Unremarkable CBC, 12/07/2024: Unremarkable CMP, 12/06/2024: Unremarkable Chest x-ray, 12/05/2024:ET in the mid thoracic trachea, NG in the stomach CT head, 12/05/2024: NO ACUTE INTRACRANIAL ABNORMALITY SEEN. Past Medical History Autism, ADHD, viral meningitis (age of [age]), seizure Past Surgical History Tonsillectomy Family History: FH: heart attack FH: thyroid disease FHx: anemia Family History Diabetes, heart disease, Clive disease, thyroid cancer Social History He has no history of tobacco smoking, drug or alcohol abuse Allergies: Coded Allergies: Flu Virus Vaccine (Unverified Allergy, Severe, 07/02/23) Latex (Unverified Allergy, Severe, 07/02/23) Home Meds Active Scripts Albuterol Sulfate (Albuterol Sulfate Hfa) 108 Mcg/Act Aer, 108 MCG IN Q4HP PRN, #1 AER 1 Refill Prov:J LUIS BENÍTEZ PAC 10/26/24 Cephalexin Monohydrate (Cephalexin) 500 Mg Cap, 1 CAP PO QID for 10 Days, #40 CAP Prov:BRANDON ZULUAGA MD 09/21/24 Reported Medications Loratadine (Claritin) 10 Mg Tab, 1 TAB PO DAILY, #30 TAB 5 Refills 12/05/24 Cholecalciferol (VITAMIN D3) 2,000 Unit Tab, 1 TAB PO DAILY, #30 TAB 5 Refills 12/05/24 Magnesium Oxide (MAGNESIUM OXIDE) 400 Mg Tab, 1 TAB PO HS, #30 TAB 5 Refills 12/05/24 Clonidine Hydrochloride (Clonidine Hcl) 0.2 Mg/24 Hr Dis, 0.2 MG PO HS for 30 Days, MG 12/05/24 Cenobamate (Xcopri) 200 Mg Tab, 200 MG PO HS, TAB 12/05/24 Cenobamate (Xcopri) 50 Mg Tab, 50 MG PO DAILY for 30 Days, #30 TAB Take one pill daily in addition to the 200 mg tablets that you already have on hand 12/04/24 Current Medications Current Medications Medications (Trade) Dose Ordered Sig/Brett Route PRN Reason Start Time Stop Time Status Last Admin Patient Own Medication 250 mg HS PO 12/06/24 22:00 12/06/24 13:30 DC Patient Own Medication 200 mg HS PO 12/06/24 22:00 12/06/24 22:17 Piperacillin Sod/ Tazobactam Sod 100 ml @ 25 mls/hr Q6H IV 12/07/24 02:00 12/07/24 13:36 Vancomycin HCl 350 ml @ 200 mls/hr Q12HR@0600,1800 IV 12/07/24 06:00 12/07/24 09:53 DC 12/07/24 06:00 Potassium Chloride 100 ml @ 50 mls/hr Q2H IV 12/07/24 06:00 12/07/24 09:59 DC 12/07/24 08:20 Vancomycin HCl 250 ml @ 200 mls/hr Q12HR@0600,1800 IV 12/07/24 18:00 12/07/24 17:47 Review of Systems As above, the other systems are negative Vital Signs Vital Signs Date Time Temp Pulse Resp B/P (MAP) Pulse Ox O2 Delivery O2 Flow Rate FiO2 12/07/24 18:00 90 12/07/24 18:00 16 100 Mechanical Ventilator+ 30 30 12/07/24 17:15 98.2 103/52 (69) 208.8 12/05/24 10:05 15 Physical Exam The patient is well-nourished and well-developed with no distress. The patient is intubated HEENT: Normocephalic, neck supple, no carotid bruits Lungs: Clear to auscultation Cardiovascular: Regular rate and region, S1, S2, no murmurs Abdomen: Soft, nontender, normal bowel sounds MENTAL STATUS: Not responsive to stroke painful surroundings, CRANIAL NERVES: Pupils are equal, round and reactive.There is not corneal reflexes, he has doll's eyes phenomenon. No signs of facial weakness. There are no gagging or coughing reflexes SENSATION: No responses to pain stimuli. MOTOR: Normal tone in the upper and lower extremity. Normal muscle bulk. No fasciculations. No spontaneous movement. REFLEXES: Deep tendon reflexes are symmetrical. No pathological reflexes. CEREBELLAR/COORDINATION: Deferred GAIT/STATION: deferred. Labs/Diagnostic Data Labs Test 12/07/24 07:12 12/07/24 03:25 12/06/24 03:22 12/05/24 15:12 Range/Units Blood Gas Specimen Type Arterial Blood Gas Sample Site Right radial Blood Gas Patient Temperature 37.0 Arterial Blood Date Drawn [id number] Arterial Blood pH 7.360 7.350-7.450 Arterial Blood Partial Pressure CO2 34.8 L 35.0-48.0 mmHg Arterial Blood Partial Pressure O2 122.1 H 83.0-108.0 mmHg Arterial Blood HCO3 19.2 L 21.0-28.0 mmol/L Arterial Blood Oxygen Saturation 98.2 H 94.0-98.0 % Arterial Blood Base Excess -5.3 L -2.0-3.0 mmol/L Arterial Blood Oxyhemoglobin 97.7 94.0-98.0 % Arterial Blood Carboxyhemoglobin 0.0 L 0.5-1.5 % Arterial Blood Methemoglobin 0.5 0.0-1.5 % Yohan Test Modified Blood Gas Total Hemoglobin 15.60 13.5-17.5 g/dL Blood Gas Set Respiration Rate 16.0 Blood Gas Modality Vent - ac FiO2 % 30.0 Blood Gas Tidal Volume 450.0 Blood Gas PEEP or CPAP 5.0 White Blood Count 7.5 4.4-10.8 10^3/uL Red Blood Count 4.62 4.5-5.90 10^6/uL Hemoglobin 14.1 13.5-17.5 g/dL Hematocrit 40.9 L 41.0-53.0 % Mean Corpuscular Volume 88.5 80.0-100.0 fL Mean Corpuscular Hemoglobin 30.5 28.0-32.0 pg Mean Corpuscular Hemoglobin Concent 34.5 32.0-36.0 g/dL Red Cell Distribution Width 12.8 11.8-14.3 % Platelet Count 114 L 140-450 10^3/uL Mean Platelet Volume 9.0 6.9-10.8 fL Neutrophils (%) (Auto) 72.4 37.0-80.0 % Lymphocytes (%) (Auto) 14.3 10.0-50.0 % Monocytes (%) (Auto) 10.0 0.0-12.0 % Eosinophils (%) (Auto) 3.0 0.0-7.0 % Basophils (%) (Auto) 0.3 0.0-2.0 % Neutrophils # (Auto) 5.4 1.6-8.6 10 ^3/uL Lymphocytes # (Auto) 1.1 0.4-5.4 10 ^3/uL Monocytes # (Auto) 0.7 0-1.3 10 ^3/uL Eosinophils # (Auto) 0.2 0-0.8 10 ^3/uL Basophils # (Auto) 0 0-0.2 10 ^3/uL Nucleated Red Blood Cells 0.0 % Sodium Level 140 136-145 mmol/L Potassium Level 3.3 L 3.5-5.1 mmol/L Chloride Level 106 98-107 mmol/L Carbon Dioxide Level 23 20-31 mmol/L Anion Gap 11 5-15 Blood Urea Nitrogen 10 9-23 mg/dL Creatinine 1.28 0.700-1.30 mg/dL Glomerular Filtration Rate Calc 82 >90 mL/min BUN/Creatinine Ratio 7.8 L 10.0-20.0 Serum Glucose 78 74-106 mg/dL Calcium Level 8.7 8.7-10.4 mg/dL Magnesium Level 1.9 1.6-2.6 mg/dL Total Bilirubin 0.3 0.2-1.0 mg/dL Aspartate Amino Transferase (AST) 25 13-40 U/L Alanine Aminotransferase (ALT) 22 7-40 U/L Alkaline Phosphatase 93 46-116 U/L Total Protein 6.4 5.7-8.2 g/dL Albumin 4.2 3.2-4.8 g/dL Troponin I High Sensitivity < 3 L </=54 ng/L Test 12/05/24 13:38 12/05/24 13:20 Range/Units Urine Color Light-yellow Yellow Urine Clarity Clear Clear Urine pH 6.5 5.0-9.0 Urine Specific [place] 1.020 1.001-1.035 Urine Protein Trace H Negative Urine Ketones Negative Negative Urine Blood Negative Negative /uL Urine Nitrite Negative Negative Urine Bilirubin Negative Negative Urine Urobilinogen Normal Negative mg/dL Urine Leukocyte Esterase Negative Negative /uL Urine RBC 1 0 - 3 /hpf Urine Microscopic WBC 1 0-3 /HPF Urine Squamous Epithelial Cells None seen <5 /hpf Urine Bacteria None seen None Seen /hpf Urine Glucose Normal Normal mg/dL Lactic Acid Level 1.1 0.4-2.0 mmol/L Microbiology Date/Time Source Procedure Growth Status 12/06/24 15:26 Blood Blood Culture - Preliminary NO GROWTH AFTER 24 HOURS OF INCUBATION. Resulted 12/06/24 09:45 Urine - Tripp Port Urine Culture - Preliminary Resulted 12/06/24 02:53 Nose MRSA Screen - Final Complete 12/05/24 10:21 Sputum Gram Stain - Final Resulted 12/05/24 10:21 Sputum Respiratory Culture - Preliminary Resulted Assessment Coma Status epilepticus Metabolic/hypoxic/toxic encephalopathy Partial complex seizure Autism Plan/Recommendation Monitoring Supportive treatment ICU care EEG Stabilize vitals Respiratory support/vent management Oxygen Xcopri 250 mg daily Ativan for seizure breakthrough More recommendation per clinical course Prognosis: Guarded Critical care time spent is 50 minutes This medical document was created using an electronic medical record system with [employer] dictation system. Although this document has been carefully reviewed, there may still be some phonetic and typographical errors. These are as are purely typographical due to imperfections of the software programs, and do not reflect any compromise in the patient's medical care. Plan discussed with: Other NAY ELDER MD Dec 07, 2024 18:27
[2024-12-07] MEDS: XCOPRI 200 MG PO SCH (21:26)
[2024-12-07] MEDS ORDERED: XCOPRI PO SCH (22:00)
--- NOTE | 2024-12-07 22:31 | DVHPN2 ---
Subjective DOS: 12/07/2024 Patient seen and examined at bedside. Sedated, intubated on mechanical ventilator. Overnight events reviewed. Changes from previous H/P or p: No Changes Objective Vitals Vital Signs Date Time Temp Pulse Resp B/P (MAP) Pulse Ox O2 Delivery O2 Flow Rate FiO2 12/07/24 21:21 107/50 12/07/24 20:10 91 16 100 30 12/07/24 18:00 Mechanical Ventilator+ 12/07/24 17:15 98.2 208.8 12/05/24 10:05 15 Intake/Output Intake and Output 12/07/24 07:00 Intake Total 2862.5 ml Output Total 1870 ml Balance 992.5 ml IV Total 2862.5 ml Output Urine Total 1870 ml Exam Gen.: Patient lying in bed in medical ICU. Sedated, intubated on mechanical ventilator. Head: Normocephalic, atraumatic. Eyes: PERRLA. Ears: Normal external anatomy. Throat: Endotracheal tube and orogastric tube in place. Neck: Supple, trachea midline. Chest: Transmitted breath sounds bilaterally. Decreased air entry bilaterally. No wheezing. Bibasilar crackles. Cardiovascular: Positive S1, positive S2. Regular rate and rhythm. Abdomen: Positive bowel sounds in all 4 quadrants. Soft, nontender, nondistended. : Tripp in place. Normal external genitalia. Rectal: Deferred. Skin: Warm, dry. Intact. Extremities: 2+ radial pulses bilaterally. No lower extremity edema. Neuro: Sedated. Medications Current Medications Medications Dose Ordered Sig/Brett Route Start Time Stop Time Status Last Admin Dose Admin Propofol 100 ml @ 3 mls/hr Q24H IV 12/05/24 10:18 12/07/24 20:08 27 MLS/HR Midazolam HCl 100 ml @ 1 mls/hr Q24H IV 12/05/24 10:50 12/07/24 17:46 15 MLS/HR Fentanyl Citrate 250 ml @ 2.5 mls/hr Q24H IV 12/05/24 11:30 12/07/24 21:21 32.5 MLS/HR Acetaminophen 650 mg Q6HP PRN PO 12/05/24 15:30 12/06/24 18:39 650 MG Lorazepam 1 mg Q5MINP PRN IV 12/06/24 09:15 Pantoprazole Sodium 40 mg DAILY IV 12/06/24 10:00 12/07/24 11:10 40 MG Enoxaparin Sodium 40 mg DAILY SC 12/06/24 10:00 12/07/24 11:11 40 MG Enteral Nutritional Formula 1,000 ml 30ML/HR GT 12/06/24 13:30 12/07/24 15:43 1,000 ML Vancomycin HCl 0 ml @ 0 mls/hr PER PHARMACY IV 12/06/24 14:00 Piperacillin Sod/ Tazobactam Sod 100 ml @ 25 mls/hr Q6H IV 12/07/24 02:00 12/07/24 20:34 25 MLS/HR Vancomycin HCl 250 ml @ 200 mls/hr Q12HR@0600,1800 IV 12/07/24 18:00 12/07/24 17:47 200 MLS/HR Lorazepam 1 mg Q5MINP PRN IV 12/07/24 18:30 Patient Own Medication 200 mg HS PO 12/07/24 22:00 12/08/24 19:00 12/07/24 21:26 200 MG Laboratory Results Laboratory Tests 12/07/24 03:25 Chemistry Test 12/07/24 03:25 Calcium Level 8.7 mg/dL (8.7-10.4) Urinalysis Test 12/05/24 13:38 Urine Color Light-yellow (Yellow) Urine Clarity Clear (Clear) Urine pH 6.5 (5.0-9.0) Urine Specific [place] 1.020 (1.001-1.035) Urine Protein Trace (Negative) H Urine Ketones Negative (Negative) Urine Blood Negative /uL (Negative) Urine Nitrite Negative (Negative) Urine Bilirubin Negative (Negative) Urine Urobilinogen Normal mg/dL (Negative) Urine Leukocyte Esterase Negative /uL (Negative) Urine RBC 1 /hpf (0 - 3) Urine Microscopic WBC 1 /HPF (0-3) Urine Squamous Epithelial Cells None seen /hpf (<5) Urine Bacteria None seen /hpf (None Seen) Urine Glucose Normal mg/dL (Normal) Blood Gas Results Test 12/07/24 07:12 Arterial Blood pH 7.360 (7.350-7.450) FiO2 % 30.0 Microbiology Microbiology Date/Time Source Procedure Growth Status 12/06/24 15:26 Blood Blood Culture - Preliminary NO GROWTH AFTER 24 HOURS OF INCUBATION. Resulted 12/06/24 09:45 Urine - Tripp Port Urine Culture - Preliminary Resulted 12/06/24 02:53 Nose MRSA Screen - Final Complete 12/05/24 10:21 Sputum Gram Stain - Final Resulted 12/05/24 10:21 Sputum Respiratory Culture - Preliminary Resulted Assessment/Plan Assessment/Plan Impression: Acute hypoxic respiratory failure On mechanical ventilator Seizure disorder Altered mental status ADHD Autism Events: Remains on vent support On AC mode; RR 16, VT 450, PEEP 5, FiO2 30% CXR image and report reviewed. Devices in place. No acute cardiopulmonary disease ABG reviewed, compensated Sedated on Propofol, Versed, Fentanyl Continue antibiotics Followup cultures Monitor renal function Monitor electrolytes. Supplement as necessary. Magnesium, potassium supplementation Protonix for GI ppx Labs and imaging reviewed. Rest of plan as noted below. Plan: s/p intubation on mechanical ventilator. On AC mode; RR 16, VT 450, PEEP 5, FiO2 30% Titrate FIO2 to keep O2 saturation above 90%. VAP bundle. Daily ABG and CXR while intubated Sedate for ventilator synchrony Continue antibiotics. Antiepileptic medication Follow up Neuro recs Pressors for hemodynamic support Titrate to keep mean arterial pressure greater than 65 mmHg. Monitor renal function Monitor electrolytes. Supplement as necessary. Monitor ins and outs. Maintain euvolemia. GI prophylaxis. DVT prophylaxis. Prognosis: Poor given patient's multiple co-morbidities. Condition: Critical Rest of plan per hospitalist and other consultants. A total of 35 minutes of critical care time was spent reviewing the patient record, examining the patient, making a diagnostic and therapeutic plan, discussing this plan with the medical personnel, following up on diagnostic studies and following the patient for clinical stability excluding any and all procedures. At least 50% of this time was spent in direct, [id number] contact. Thank you, Dr. Darby, for allowing me to participate in this patient's care. Further recommendations will depend on the patient's clinical course. Please do not hesitate to contact me if you have any questions or concerns. This medical document was created using an electronic medical record system with [employer] system. Although these documentations are being carefully reviewed, there may still be some phonetic and typographical changes. The errors are purely typographical, due to imperfection on the software program, and do not reflect any compromise in the patient's medical care. Plan discussed with: Other (IRENE Verduzcot) Visit Coding Pulmonary Billing Provider: ERINN FUCHS MD Date of Service if different f: Dec 07, 2024 Common Visit Codes: 99544-[id number] INP/OBS CARE(HIGH), [id number] CARE 30-74 MIN ERINN FUCHS MD Dec 07, 2024 22:31
[2024-12-08] VITALS (108 sets, daily range): BP systolic 85–144; BP diastolic 38–75; PULSE 77–137; RESP 15–28; TEMP 76.3–101.1; O2SAT 97–100
--- NOTE | 2024-12-08 04:52 | DVH ---
CHEST RADIOGRAPH Indication: on vent Technique: Single frontal view of the chest was obtained Comparison: XY CHEST XRAY 1 VIEW on DOS: 12/07/24, XY CHEST PORTABLE on DOS: 12/06/24, XY CHEST PORTAB LE on DOS: 12/05/24 IMPRESSION: Endotracheal tube and enteric tube appear unchanged in satisfactory position. Low lung volumes with m ild pulmonary vascular congestion. No sizable effusion or pneumothorax.
[2024-12-08 04:56] LABS: Hematocrit 38.7 % (41.0-53.0); Hemoglobin 13.5 g/dL (13.5-17.5); Mean Corpuscular Hemoglobin 30.9 pg (28.0-32.0); Mean Corpuscular Volume 88.9 fL (80.0-100.0); Nucleated Red Blood Cells % 0.0 %
[2024-12-08 05:04] LABS: Anion Gap 15 (5-15); Carbon Dioxide 21 mmol/L (20-31); Chloride 106 mmol/L (98-107); Potassium 3.8 mmol/L (3.5-5.1); Sodium 142 mmol/L (136-145)
[2024-12-08 05:05] LABS: Calcium 8.9 mg/dL (8.7-10.4)
[2024-12-08 05:09] LABS: BUN/Creatinine Ratio 6.7 (10.0-20.0); Blood Urea Nitrogen 14 mg/dL (9-23); Glucose 93 mg/dL (74-106)
[2024-12-08 07:19] LABS: Base Excess -5.2 mmol/L (-2.0-3.0)
[2024-12-08] MEDS: NOREPINEPHRINE 8 MG/250ML KIT 250 ML IV SCH (10:30)
--- NOTE | 2024-12-08 11:42 | DVHPNRES ---
Progress Note Date Seen: Dec 08, 2024 Resident Creating Document: FELICIANO BARR RESIDENT Medical Necessity Reason Pt with a Central, PICC or Fol: No Subjective Review of Systems Patient is 19-year-old male who recently came to the emergency department for seizure activity was sent home from emergency department and found to have seizure-like activity noticed by his mother. EMS was called. During EMS transfer, patient was become apneic, requiring bag mask ventilation, had seizure-like activity at the time of initial evaluation in emergency department, patient had stiffening of extremity, altered and nonresponsive and requiring intubation early in the morning on 12/05/2024 for protection of airway. Past medical history: Seizures, autism, ADHD Past surgical history: Tonsillectomy Family history: None Personal history: Lives with family, studying in college. No history of drug, alcohol or any recreational drug use. Home medication:Xcorpi(Cenobamate) 12/05/24: Intubated for airway protection, continued on sedation and antiseizure medication xcorpi 12/06/24: Intubated, sedated. On Xcopri. Had temperature of 100.9 earlier morning. No any other new complaint. No other night event of seizure activity. 12/07/24: Intubated. Episode of possible seizure likely absent seizure. had elevated temperature. was given phenobarbital. No other night events 12/08/2024: Patient intubated Mechanically ventilated., sedated with fentanyl, Versed, propofol. Patient underwent EEG today. Patient's mom at bedside, answered all concerns. ordered Levophed in case blood pressure drops. Neuro following. Objective vital signs Vital Sign Date Time Temp Pulse Resp B/P (MAP) Pulse Ox O2 Delivery O2 Flow Rate FiO2 12/08/24 09:45 82 16 96/44 (61) 99 30 12/08/24 07:45 97.3 207.1 12/08/24 07:30 Mechanical Ventilator+ Total Intake and Output 12/07/24 12/07/24 12/08/24 15:00 23:00 07:00 Intake Total 990 ml 1117.5 ml 1187.5 ml Output Total 1200 ml 900 ml Balance 990 ml -82.5 ml 287.5 ml medications Current Medications Medications Dose Ordered Sig/Brett Route Start Time Stop Time Status Last Admin Dose Admin Propofol 100 ml @ 3 mls/hr Q24H IV 12/05/24 10:18 12/08/24 07:06 27 MLS/HR Midazolam HCl 100 ml @ 1 mls/hr Q24H IV 12/05/24 10:50 12/08/24 06:32 14 MLS/HR Fentanyl Citrate 250 ml @ 2.5 mls/hr Q24H IV 12/05/24 11:30 12/08/24 03:45 35 MLS/HR Acetaminophen 650 mg Q6HP PRN PO 12/05/24 15:30 12/08/24 00:15 650 MG Pantoprazole Sodium 40 mg DAILY IV 12/06/24 10:00 12/08/24 09:40 40 MG Enoxaparin Sodium 40 mg DAILY SC 12/06/24 10:00 12/08/24 09:40 40 MG Enteral Nutritional Formula 1,000 ml 30ML/HR GT 12/06/24 13:30 12/07/24 15:43 1,000 ML Vancomycin HCl 0 ml @ 0 mls/hr PER PHARMACY IV 12/06/24 14:00 Vancomycin HCl 250 ml @ 200 mls/hr Q12HR@0600,1800 IV 12/07/24 18:00 12/08/24 06:31 200 MLS/HR Lorazepam 1 mg Q5MINP PRN IV 12/07/24 18:30 Patient Own Medication 200 mg HS PO 12/07/24 22:00 12/08/24 19:00 12/07/24 21:26 200 MG Norepinephrine Bitartrate 250 ml @ 3.75 mls/hr Q24H IV 12/08/24 09:00 Piperacillin Sod/ Tazobactam Sod 100 ml @ 25 mls/hr Q8H IV 12/08/24 16:00 Examination General: Intubated, sedated HEENT: Normocephalic, atraumatic, moist mucous membranes Respiratory/pulmonary: Clear lungs bilaterally, vesicular murmurs present in almost all lung pickering, no associated crackles or wheezes. Cardiovascular: Normal heart sounds S1 and S2 with no associated murmurs Abdomen: Abdomen nondistended, there is no pain to palpation in any of the abdominal quadrants, no palpable masses. Extremities: There is no peripheral edema present at the lower extremities. Peripheral Pulses: 3+ Radial (R). 3+ Radial (L). 3+ Dorsalis pedis (R). 3+ Dorsalis pedis(L) Skin: No rashes or pruritus, there is no sacral edema present at this time. Neurological: pupils reactive, negative cough and gag reflex. laboratory and microbiology Laboratory Tests 12/08/24 03:30 Test 12/08/24 03:30 Range/Units Serum Glucose 93 74-106 mg/dL Microbiology Date/Time Source Procedure Growth Status 12/06/24 15:26 Blood Blood Culture - Preliminary NO GROWTH AFTER 24 HOURS OF INCUBATION. Resulted 12/06/24 09:45 Urine - Tripp Port Urine Culture - Final Complete 12/06/24 02:53 Nose MRSA Screen - Final Complete 12/05/24 10:21 Sputum Gram Stain - Final Complete 12/05/24 10:21 Sputum Respiratory Culture - Final Complete Problem List/Assessment/Plan Problem List/Assessment/Plan Neurology Seizures Altered mental status likely due to above Sedated -fentanyl and Versed -Xcorpi 250 mg po daily increased from 200 mg. -CT head():NO ACUTE INTRACRANIAL ABNORMALITY SEEN. -EEG done on (12/08) -Neurology consultation Current history of ADHD Autism -not on any medication at this point Respiratory Acute hypoxic respiratory failure due to possible aspiration pneumonia Aspiration pneumonia -IV Zosyn, vancomycin -chest x-ray: Prominent right lower lobe hilar opacification -temperature of 100 -pending pancultures -respiratory cultures growing moderate Gram-positive cocci in pairs and rare negative rods -off pressor at this point. If needed, initiate with norepinephrine drip -target map greater than 65 Nephrology Lactic acidosis likely due to seizures: Improved -lactic acid 2.5, 1.1 Recent history of UTI -pending urine culture Line: Right internal jugular on 12/05/2024 Intubated on 12/05/2024 Feeding via G-tube Tripp catheter PUD prophylaxis with Protonix DVT prophylaxis with Lovenox Goals of care discussed greater than 24 minutes, with mother. Full code status. Critical care time spent 83 minutes outside of procedure. Plan discussed with Plan discussed with: Other (Mother, RN) Dietary Evaluation Review Comments: Nutrition Recommendation: 1) EN Vital high protein @ 60ml/hr x 24hr(goal). Water flush 250ml Q6H if allowed, adjust PRN. TF at goal volume along with Propofol provide 2232 kcal (100%), 126gm protein (100%), and 2204 ml free water (including flush). 2) Consider TPN/PN if NPO>7 days 3) Monitor NPO status, lab values, weight trend, and I/O Expected Outcomes/Goals: Intake to meet >75% estimated needs Fu 2-3 days FELICIANO BARR RESIDENT Dec 08, 2024 11:42
--- NOTE | 2024-12-08 12:15 | MEDREC ---
[facility] ASP Intervention Section I [facility] ASP Intervention: Review courses of therapy (PLEASE CONSIDER D/C VANCOMYCIN - NARES SCREENING FOR MRSA HAS A HIGH SPECIFICITY AND NEGATIVE PREDICTIVE VALUE FOR RULING OUT MRSA PNEUMONIA, PARTICULARLY IN CASES OF CAP BASED ON THE NEGATIVE PREDICITVE VALUE AND THE MRSA NARES NEGATIVE ) CEDRIC GARZA PHARMACIST Dec 08, 2024 12:15
[2024-12-08] MEDS: PIPERACILLIN-TAZOB 3.375GM 100 ML IV SCH (16:45)
--- NOTE | 2024-12-08 17:28 | DVHPN2 ---
Progress Note - Dictate Date Seen: Dec 08, 2024 Medical Necessity Reason Pt with a Central, PICC or Fol: No Subjective Mr. Adams is a 19 years old right-handed gentleman with a history of autism, ADHD, vera meningitis, seizure disorder, he was brought to the [facility] on 12/05/2024 with a chief complaint of seizure activity. I have seen and examined the patient, I have discussed with his nurse, his mother is in the room with him. He is intubated, nonresponsive to strong painful stimuli He had tachypnea with less sedation Fentanyl 300 mcg/hour, propofol 30 mcg/minute, Versed 15 mg/our ABG 12/07/2024: Compensated metabolic acidosis Urinalysis, 12/05/2024: Unremarkable CBC, 12/07/2024: Unremarkable CMP, 12/06/2024: Unremarkable Chest x-ray, 12/05/2024:ET in the mid thoracic trachea, NG in the stomach CT head, 12/05/2024: NO ACUTE INTRACRANIAL ABNORMALITY SEEN. vital signs Vital Sign Date Time Temp Pulse Resp B/P (MAP) Pulse Ox O2 Delivery O2 Flow Rate FiO2 12/08/24 17:00 99.5 93 18 111/51 (71) 100 211.1 12/08/24 16:30 Mechanical Ventilator+ 30 30 Total Intake and Output 12/07/24 12/07/24 12/08/24 15:00 23:00 07:00 Intake Total 990 ml 1117.5 ml 1187.5 ml Output Total 1200 ml 900 ml Balance 990 ml -82.5 ml 287.5 ml medications Current Medications Medications Dose Ordered Sig/Brett Route Start Time Stop Time Status Last Admin Dose Admin Propofol 100 ml @ 3 mls/hr Q24H IV 12/05/24 10:18 12/08/24 11:30 15 MLS/HR Midazolam HCl 100 ml @ 1 mls/hr Q24H IV 12/05/24 10:50 12/08/24 14:00 12 MLS/HR Fentanyl Citrate 250 ml @ 2.5 mls/hr Q24H IV 12/05/24 11:30 12/08/24 09:50 25 MLS/HR Acetaminophen 650 mg Q6HP PRN PO 12/05/24 15:30 12/08/24 00:15 650 MG Pantoprazole Sodium 40 mg DAILY IV 12/06/24 10:00 12/08/24 09:40 40 MG Enoxaparin Sodium 40 mg DAILY SC 12/06/24 10:00 12/08/24 09:40 40 MG Enteral Nutritional Formula 1,000 ml 30ML/HR GT 12/06/24 13:30 12/07/24 15:43 1,000 ML Vancomycin HCl 0 ml @ 0 mls/hr PER PHARMACY IV 12/06/24 14:00 Lorazepam 1 mg Q5MINP PRN IV 12/07/24 18:30 Patient Own Medication 200 mg HS PO 12/07/24 22:00 12/08/24 19:00 12/07/24 21:26 200 MG Norepinephrine Bitartrate 250 ml @ 3.75 mls/hr Q24H IV 12/08/24 09:00 Piperacillin Sod/ Tazobactam Sod 100 ml @ 25 mls/hr Q8H IV 12/08/24 16:00 12/08/24 16:45 25 MLS/HR objective The patient is well-nourished and well-developed with no distress. The patient is intubated MENTAL STATUS: Subjective CRANIAL NERVES: Pupils are equal, round and reactive.There is not corneal reflexes, he has doll's eyes phenomenon. No signs of facial weakness. There are weak gagging or coughing reflexes SENSATION: No responses to pain stimuli. MOTOR: Normal tone in the upper and lower extremity. Normal muscle bulk. No fasciculations. No spontaneous movement. REFLEXES: Deep tendon reflexes are symmetrical. No pathological reflexes. CEREBELLAR/COORDINATION: Deferred GAIT/STATION: deferred. laboratory and microbiology Laboratory Tests 12/08/24 03:30 Test 12/08/24 03:30 Range/Units Serum Glucose 93 74-106 mg/dL Problem List Coma Status epilepticus Metabolic/hypoxic/toxic encephalopathy Partial complex seizure Autism Assessment/Plan Monitoring Supportive treatment ICU care EEG Stabilize vitals Respiratory support/vent management Oxygen Xcopri 250 mg daily Ativan for seizure breakthrough More recommendation per clinical course This medical document was created using an electronic medical record system with igob[employer] dictation system. Although this document has been carefully reviewed, there may still be some phonetic and typographical errors. These areas are purely typographical due to imperfections of the software programs, and do not reflect any compromise in the patient's medical care. Prognosis Guarded Dietary Evaluation Review Comments: Nutrition Recommendation: 1) EN Vital high protein @ 60ml/hr x 24hr(goal). Water flush 250ml Q6H if allowed, adjust PRN. TF at goal volume along with Propofol provide 2232 kcal (100%), 126gm protein (100%), and 2204 ml free water (including flush). 2) Consider TPN/PN if NPO>7 days 3) Monitor NPO status, lab values, weight trend, and I/O Expected Outcomes/Goals: Intake to meet >75% estimated needs Fu 2-3 days Plan discussed with: Other Critical Care Time(min): 40 NAY ELDER MD Dec 08, 2024 17:28
--- NOTE | 2024-12-08 17:46 | DVHEEG2 ---
Neurology EEG Procedural Note Procedural Note EXAM DATE: 12/08/2024 REFERRING DOCTOR: Dr. Elder TECHNIQUE: Eighteen channels of EEG, 2 channels of EOG, and 1 channel of EKG were recorded using the [employer] 10/20 system. CLINICAL DATA: The patient was referred for an EEG evaluation for the evidence of seizure disorder. MEDICATIONS: Seizure chart BACKGROUND ACTIVITY: The record showed large amount of low to medium voltage polymorphic delta and theta activity over both hemispheres, that was reactive to external eye ACTIVATION: Hyperventilation: Not done Photic Stimulation: Not done Sleep: Not seen IMPRESSION: This is a remarkably abnormal EEG. This EEG is seen in severe cerebral dysfunction due to metabolic/hypoxic encephalopathy or medication effect, please correlate clinically. The EKG channel showed poor [place] [address] NAY ELDER MD Dec 08, 2024 17:46
[2024-12-08] MEDS: LORazepam 2MG/ML-1ML VIAL IV PRN (18:32)
--- NOTE | 2024-12-08 22:54 | DVHPN2 ---
Subjective DOS: 12/08/2024 Patient seen and examined at bedside. Sedated, intubated on mechanical ventilator. Overnight events reviewed. Changes from previous H/P or p: No Changes Objective Vitals Vital Signs Date Time Temp Pulse Resp B/P (MAP) Pulse Ox O2 Delivery O2 Flow Rate FiO2 12/08/24 22:03 117 20 126/64 (84) 97 30 12/08/24 22:00 Mechanical Ventilator+ 12/08/24 22:00 100.6 213.1 Intake/Output Intake and Output 12/08/24 07:00 Intake Total 3295.0 ml Output Total 2100 ml Balance 1195.0 ml Intake Oral 30 ml IV Total 2785.0 ml Tube Feeding 380 ml Other 100 ml Output Urine Total 2100 ml Exam Gen.: Patient lying in bed in medical ICU. Sedated, intubated on mechanical ventilator. Head: Normocephalic, atraumatic. Eyes: PERRLA. Ears: Normal external anatomy. Throat: Endotracheal tube and orogastric tube in place. Neck: Supple, trachea midline. Chest: Transmitted breath sounds bilaterally. Decreased air entry bilaterally. No wheezing. Bibasilar crackles. Cardiovascular: Positive S1, positive S2. Regular rate and rhythm. Abdomen: Positive bowel sounds in all 4 quadrants. Soft, nontender, nondistended. : Tripp in place. Normal external genitalia. Rectal: Deferred. Skin: Warm, dry. Intact. Extremities: 2+ radial pulses bilaterally. No lower extremity edema. Neuro: Sedated. Medications Current Medications Medications Dose Ordered Sig/Brett Route Start Time Stop Time Status Last Admin Dose Admin Propofol 100 ml @ 3 mls/hr Q24H IV 12/05/24 10:18 12/08/24 17:30 15 MLS/HR Midazolam HCl 100 ml @ 1 mls/hr Q24H IV 12/05/24 10:50 12/08/24 14:00 12 MLS/HR Fentanyl Citrate 250 ml @ 2.5 mls/hr Q24H IV 12/05/24 11:30 12/08/24 20:15 30 MLS/HR Acetaminophen 650 mg Q6HP PRN PO 12/05/24 15:30 12/08/24 18:57 650 MG Pantoprazole Sodium 40 mg DAILY IV 12/06/24 10:00 12/08/24 09:40 40 MG Enoxaparin Sodium 40 mg DAILY SC 12/06/24 10:00 12/08/24 09:40 40 MG Enteral Nutritional Formula 1,000 ml 30ML/HR GT 12/06/24 13:30 12/07/24 15:43 1,000 ML Vancomycin HCl 0 ml @ 0 mls/hr PER PHARMACY IV 12/06/24 14:00 Lorazepam 1 mg Q5MINP PRN IV 12/07/24 18:30 12/08/24 18:32 1 MG Norepinephrine Bitartrate 250 ml @ 3.75 mls/hr Q24H IV 12/08/24 09:00 Piperacillin Sod/ Tazobactam Sod 100 ml @ 25 mls/hr Q8H IV 12/08/24 16:00 12/08/24 16:45 25 MLS/HR Laboratory Results Laboratory Tests 12/08/24 03:30 Chemistry Test 12/08/24 03:30 Calcium Level 8.9 mg/dL (8.7-10.4) Urinalysis Test 12/05/24 13:38 Urine Color Light-yellow (Yellow) Urine Clarity Clear (Clear) Urine pH 6.5 (5.0-9.0) Urine Specific [place] 1.020 (1.001-1.035) Urine Protein Trace (Negative) H Urine Ketones Negative (Negative) Urine Blood Negative /uL (Negative) Urine Nitrite Negative (Negative) Urine Bilirubin Negative (Negative) Urine Urobilinogen Normal mg/dL (Negative) Urine Leukocyte Esterase Negative /uL (Negative) Urine RBC 1 /hpf (0 - 3) Urine Microscopic WBC 1 /HPF (0-3) Urine Squamous Epithelial Cells None seen /hpf (<5) Urine Bacteria None seen /hpf (None Seen) Urine Glucose Normal mg/dL (Normal) Blood Gas Results Test 12/08/24 07:01 Arterial Blood pH 7.322 (7.350-7.450) FiO2 % 30.0 Microbiology Microbiology Date/Time Source Procedure Growth Status 12/06/24 15:26 Blood Blood Culture - Preliminary NO GROWTH AFTER 48 HOURS OF INCUBATION. Resulted 12/06/24 09:45 Urine - Tripp Port Urine Culture - Final Complete 12/06/24 02:53 Nose MRSA Screen - Final Complete 12/05/24 10:21 Sputum Gram Stain - Final Complete 12/05/24 10:21 Sputum Respiratory Culture - Final Complete Assessment/Plan Assessment/Plan Impression: Acute hypoxic respiratory failure On mechanical ventilator Seizure disorder Altered mental status ADHD Autism Events: Remains on vent support On AC mode; RR 16, VT 450, PEEP 5, FiO2 30% ABG reviewed, acidemia due to metabolic acidosis. CXR image and report reviewed. Devices in place. No acute cardiopulmonary disease Sedated on Propofol, Versed, Fentanyl Pressors for hemodynamic support On Levophed Titrate to keep mean arterial pressure greater than 65 mmHg. Continue antibiotics Follow up cultures - sputum cx grew normal oropharyngeal elena Monitor renal function Monitor electrolytes. Supplement as necessary. Magnesium, potassium supplementation PRN Protonix for GI ppx Follow up EEG results. Follow up Neuro recs Once Neuro gives clearance, we will consider CPAP. Labs and imaging reviewed. Rest of plan as noted below. Plan: s/p intubation on mechanical ventilator. On AC mode; RR 16, VT 450, PEEP 5, FiO2 30% Titrate FIO2 to keep O2 saturation above 90%. VAP bundle. Daily ABG and CXR while intubated Sedate for ventilator synchrony Continue antibiotics. Antiepileptic medication Follow up Neuro recs Pressors for hemodynamic support Titrate to keep mean arterial pressure greater than 65 mmHg. Monitor renal function Monitor electrolytes. Supplement as necessary. Monitor ins and outs. Maintain euvolemia. GI prophylaxis. DVT prophylaxis. Prognosis: Poor given patient's multiple co-morbidities. Condition: Critical Rest of plan per hospitalist and other consultants. A total of 35 minutes of critical care time was spent reviewing the patient record, examining the patient, making a diagnostic and therapeutic plan, discussing this plan with the medical personnel, following up on diagnostic studies and following the patient for clinical stability excluding any and all procedures. At least 50% of this time was spent in direct, [id number] contact. Thank you, Dr. Darby, for allowing me to participate in this patient's care. Further recommendations will depend on the patient's clinical course. Please do not hesitate to contact me if you have any questions or concerns. This medical document was created using an electronic medical record system with [employer] system. Although these documentations are being carefully reviewed, there may still be some phonetic and typographical changes. The errors are purely typographical, due to imperfection on the software program, and do not reflect any compromise in the patient's medical care. Plan discussed with: Other (IRENE Campos) Visit Coding Pulmonary Billing Provider: ERINN FUCHS MD Date of Service if different f: Dec 08, 2024 Common Visit Codes: [id number] INP/OBS CARE(HIGH), [id number] CARE 30-74 MIN ERINN FUCHS MD Dec 08, 2024 22:54
[2024-12-09] VITALS (74 sets, daily range): BP systolic 113–143; BP diastolic 52–81; PULSE 74–121; RESP 16–23; TEMP 98.1–100.8; O2SAT 97–100
[2024-12-09 03:41] LABS: Hematocrit 37.0 % (41.0-53.0); Hemoglobin 12.6 g/dL (13.5-17.5); Mean Corpuscular Hemoglobin 30.7 pg (28.0-32.0); Mean Corpuscular Volume 90.2 fL (80.0-100.0); Nucleated Red Blood Cells % 0.2 %
[2024-12-09 04:06] LABS: Alanine Aminotransferase 30 U/L (7-40); Albumin 3.5 g/dL (3.2-4.8); Alkaline Phosphatase 92 U/L (46-116); Anion Gap 13 (5-15); BUN/Creatinine Ratio 6.0 (10.0-20.0); Blood Urea Nitrogen 13 mg/dL (9-23); Calcium 8.9 mg/dL (8.7-10.4); Carbon Dioxide 22 mmol/L (20-31); Glucose 95 mg/dL (74-106); Magnesium 2.1 mg/dL (1.6-2.6); Potassium 3.7 mmol/L (3.5-5.1); Sodium 143 mmol/L (136-145); Total Protein 6.0 g/dL (5.7-8.2)
[2024-12-09 04:07] LABS: Bilirubin, Total 0.3 mg/dL (0.2-1.0)
[2024-12-09 04:09] LABS: Chloride 108 mmol/L (98-107)
--- NOTE | 2024-12-09 04:58 | DVH ---
CHEST RADIOGRAPH Indication: on vent Technique: Single frontal view of the chest was obtained COMPARISON: XY CHEST XRAY 1 VIEW on DOS: 12/08/24, XY CHEST XRAY 1 VIEW on DOS: 12/07/24, XY CHEST PORT ABLE on DOS: 12/06/24, XY CHEST PORTABLE on DOS: 12/05/24, XY CHEST PORTABLE on DOS: 10/26/24 FINDINGS: Lines and Tubes: Unchanged. Lungs: Diminished lung volumes with concomitant crowding of the pulmonary vasculature. No evidence o f focal consolidation. Pleura: No effusion. No pneumothorax. Cardiomediastinal contours: Unremarkable Bones: Unremarkable IMPRESSION: 1. No significant change compared to prior exam allowing for differences in technique. 2. Lines and tubes unchanged.
[2024-12-09 08:03] LABS: Base Excess -8.3 mmol/L (-2.0-3.0)
[2024-12-09] MEDS: SODIUM CHLORIDE 0.9% 1,000 ML IV SCH (08:37)
[2024-12-09] MEDS: SODIUM CHLORIDE 0.9% 500 ML IV ONE (08:37)
--- NOTE | 2024-12-09 09:11 | DVHPNRES ---
Progress Note Medical Necessity Reason Pt with a Central, PICC or Fol: No Objective vital signs Vital Sign Date Time Temp Pulse Resp B/P (MAP) Pulse Ox O2 Delivery O2 Flow Rate FiO2 12/09/24 08:50 87 16 130/70 (90) 100 30 12/09/24 08:00 98.6 209.5 12/09/24 07:30 Mechanical Ventilator+ Total Intake and Output 12/08/24 12/08/24 12/09/24 15:00 23:00 07:00 Intake Total 431.5 ml 837.5 ml 841 ml Output Total 650 ml 1050 ml Balance 431.5 ml 187.5 ml -209 ml medications Current Medications Medications Dose Ordered Sig/Brett Route Start Time Stop Time Status Last Admin Dose Admin Propofol 100 ml @ 3 mls/hr Q24H IV 12/05/24 10:18 12/09/24 02:59 21 MLS/HR Midazolam HCl 100 ml @ 1 mls/hr Q24H IV 12/05/24 10:50 12/08/24 23:07 12 MLS/HR Fentanyl Citrate 250 ml @ 2.5 mls/hr Q24H IV 12/05/24 11:30 12/08/24 20:15 30 MLS/HR Acetaminophen 650 mg Q6HP PRN PO 12/05/24 15:30 12/08/24 18:57 650 MG Pantoprazole Sodium 40 mg DAILY IV 12/06/24 10:00 12/09/24 08:34 40 MG Enoxaparin Sodium 40 mg DAILY SC 12/06/24 10:00 12/09/24 08:33 40 MG Enteral Nutritional Formula 1,000 ml 30ML/HR GT 12/06/24 13:30 12/07/24 15:43 1,000 ML Lorazepam 1 mg Q5MINP PRN IV 12/07/24 18:30 12/08/24 18:32 1 MG Norepinephrine Bitartrate 250 ml @ 3.75 mls/hr Q24H IV 12/08/24 09:00 Piperacillin Sod/ Tazobactam Sod 100 ml @ 25 mls/hr Q8H IV 12/08/24 16:00 12/09/24 08:33 25 MLS/HR Sodium Chloride 1,000 ml @ 100 mls/hr Q10H IV 12/09/24 08:15 12/09/24 08:37 100 MLS/HR Lactulose 30 ml DAILY PO 12/09/24 10:00 UNV Metoclopramide HCl 5 mg ACHS PO 12/09/24 11:30 UNV laboratory and microbiology Laboratory Tests 12/09/24 02:30 Test 12/09/24 02:30 Range/Units Serum Glucose 95 74-106 mg/dL Microbiology Date/Time Source Procedure Growth Status 12/06/24 15:26 Blood Blood Culture - Preliminary NO GROWTH AFTER 48 HOURS OF INCUBATION. Resulted 12/06/24 09:45 Urine - Tripp Port Urine Culture - Final Complete 12/06/24 02:53 Nose MRSA Screen - Final Complete 12/05/24 10:21 Sputum Gram Stain - Final Complete 12/05/24 10:21 Sputum Respiratory Culture - Final Complete Problem List/Assessment/Plan Problem List/Assessment/Plan Neurology Seizures Altered mental status likely due to above Sedated -fentanyl and Versed -Xcorpi 250 mg po daily -CT head():NO ACUTE INTRACRANIAL ABNORMALITY SEEN. -Neurology consultation Current history of ADHD Autism -not on any medication at this point Respiratory Acute hypoxic respiratory failure due to possible aspiration pneumonia Aspiration pneumonia -IV Zosyn, vancomycin -chest x-ray: Prominent right lower lobe hilar opacification -temperature of 100 -pending pancultures -respiratory cultures growing moderate Gram-positive cocci in pairs and rare negative rods -off pressor at this point. If needed, initiate with norepinephrine drip -target map greater than 65 Nephrology Lactic acidosis likely due to seizures: Improved -lactic acid 2.5, 1.1 Recent history of UTI -pending urine culture Line: Right internal jugular on 12/05/2024 Intubated on 12/05/2024 Feeding via G-tube Tripp catheter PUD prophylaxis with Protonix DVT prophylaxis with Lovenox Goals of care discussed greater than 24 minutes, with mother. Full code status. Critical care time spent 83 minutes outside of procedure. Plan discussed with My Orders My Orders Orders - DEB MARTE RESIDENT Procedure Category Date Status Time Piperacillin-Tazob PHA 12/08/24 In Process 3.375gm (Zosyn 3.375g 16:00 Sodium Chloride 0.9% PHA 12/09/24 In Process 08:15 Sodium Chloride 0.9% PHA 12/09/24 In Process 08:15 Basic Metabolic Panel LAB 12/09/24 Logged 12:00 Urine Sodium LAB 12/09/24 Logged 08:04 Urine Creatinine LAB 12/09/24 Logged 08:04 Urine LAB 12/09/24 Logged Protein/Creatinine Respiratory Misc. RT 12/09/24 Transmitted Order 08:50 Lactic Acid W/ Reflex LAB 12/09/24 Logged Order 09:03 Lactulose Oral PHA 12/09/24 Logged 10:00 Metoclopramide Tablet PHA 12/09/24 Logged (Reglan Tablet) 11:30 Ventilator Orders RT 12/09/24 Transmitted 09:06 Chest Xray 1 View XY 12/09/24 Logged 09:06 Dietary Evaluation Review Comments: Nutrition Recommendation: 1) EN Vital high protein @ 60ml/hr x 24hr(goal). Water flush 250ml Q6H if allowed, adjust PRN. TF at goal volume along with Propofol provide 2232 kcal (100%), 126gm protein (100%), and 2204 ml free water (including flush). 2) Consider TPN/PN if NPO>7 days 3) Monitor NPO status, lab values, weight trend, and I/O Expected Outcomes/Goals: Intake to meet >75% estimated needs Fu 2-3 days DEB MARTE RESIDENT Dec 09, 2024 09:11
[2024-12-09] MEDS: LACTULOSE 20Gm/30ML SOLN PO SCH (10:00)
--- NOTE | 2024-12-09 10:02 | DVHPN2 ---
Progress Note - Dictate Date Seen: Dec 09, 2024 Medical Necessity Reason Pt with a Central, PICC or Fol: No Subjective Mr. Adams is a 19 years old right-handed gentleman with a history of autism, ADHD, vera meningitis, seizure disorder, he was brought to the [facility] on 12/05/2024 with a chief complaint of seizure activity. I have seen and examined the patient, talked to Dr. Darby and his nurse, his mother is in the room with him. He is intubated, nonresponsive to strong painful stimuli He has spells of tremors (not convulsion) along with tachycardia. Mother confirmed again that there was no convulsion or shaking with the patient has seizure attacks He had tachypnea with less sedation Fentanyl 300 mcg/hour, propofol 40 mcg/minute, ABG 12/07/2024: Compensated metabolic acidosis Urinalysis, 12/05/2024: Unremarkable CBC, 12/07/2024: Unremarkable CMP, 12/06/2024: Unremarkable EEG, 12/08/2024: Remarkably abnormal Chest x-ray, 12/05/2024:ET in the mid thoracic trachea, NG in the stomach CT head, 12/05/2024: NO ACUTE INTRACRANIAL ABNORMALITY SEEN. vital signs Vital Sign Date Time Temp Pulse Resp B/P (MAP) Pulse Ox O2 Delivery O2 Flow Rate FiO2 12/09/24 08:50 87 16 130/70 (90) 100 30 12/09/24 08:00 98.6 209.5 12/09/24 07:30 Mechanical Ventilator+ Total Intake and Output 12/08/24 12/08/24 12/09/24 15:00 23:00 07:00 Intake Total 431.5 ml 837.5 ml 841 ml Output Total 650 ml 1050 ml Balance 431.5 ml 187.5 ml -209 ml medications Current Medications Medications Dose Ordered Sig/Brett Route Start Time Stop Time Status Last Admin Dose Admin Propofol 100 ml @ 3 mls/hr Q24H IV 12/05/24 10:18 12/09/24 02:59 21 MLS/HR Midazolam HCl 100 ml @ 1 mls/hr Q24H IV 12/05/24 10:50 12/08/24 23:07 12 MLS/HR Fentanyl Citrate 250 ml @ 2.5 mls/hr Q24H IV 12/05/24:30 12/08/24 20:15 30 MLS/HR Acetaminophen 650 mg Q6HP PRN PO 12/05/24 15:30 12/08/24 18:57 650 MG Pantoprazole Sodium 40 mg DAILY IV 12/06/24 10:00 12/09/24 08:34 40 MG Enoxaparin Sodium 40 mg DAILY SC 12/06/24 10:00 12/09/24 08:33 40 MG Enteral Nutritional Formula 1,000 ml 30ML/HR GT 12/06/24 13:30 12/07/24 15:43 1,000 ML Lorazepam 1 mg Q5MINP PRN IV 12/07/24 18:30 12/08/24 18:32 1 MG Norepinephrine Bitartrate 250 ml @ 3.75 mls/hr Q24H IV 12/08/24 09:00 Piperacillin Sod/ Tazobactam Sod 100 ml @ 25 mls/hr Q8H IV 12/08/24 16:00 12/09/24 08:33 25 MLS/HR Sodium Chloride 1,000 ml @ 100 mls/hr Q10H IV 12/09/24 08:15 12/09/24 08:37 100 MLS/HR Lactulose 30 ml DAILY PO 12/09/24 10:00 Metoclopramide HCl 5 mg ACHS PO 12/09/24 11:30 objective The patient is well-nourished and well-developed with no distress. The patient is intubated MENTAL STATUS: Subjective CRANIAL NERVES: Pupils are equal, round and reactive.There is not corneal reflexes, he has doll's eyes phenomenon. No signs of facial weakness. There are weak gagging or coughing reflexes SENSATION: No responses to pain stimuli. MOTOR: Normal tone in the upper and lower extremity. Normal muscle bulk. No fasciculations. No spontaneous movement. REFLEXES: Deep tendon reflexes are symmetrical. No pathological reflexes. CEREBELLAR/COORDINATION: Deferred GAIT/STATION: deferred. laboratory and microbiology Laboratory Tests 12/09/24 02:30 Test 12/09/24 02:30 Range/Units Serum Glucose 95 74-106 mg/dL Problem List Coma Status epilepticus Metabolic/hypoxic/toxic encephalopathy Partial complex seizure Autism Spells tremors with tachycardia, rule out seizure activity Assessment/Plan Monitoring Supportive treatment ICU care Follow up EEG Stabilize vitals Respiratory support/vent management Oxygen Xcopri 250 mg daily Ativan for seizure breakthrough Transferred to higher level care for continuous video EEG More recommendation per clinical course This medical document was created using an electronic medical record system with [employer] dictation system. Although this document has been carefully reviewed, there may still be some phonetic and typographical errors. These areas are purely typographical due to imperfections of the software programs, and do not reflect any compromise in the patient's medical care. Prognosis guarded Dietary Evaluation Review Comments: Nutrition Recommendation: 1) EN Vital high protein @ 60ml/hr x 24hr(goal). Water flush 250ml Q6H if allowed, adjust PRN. TF at goal volume along with Propofol provide 2232 kcal (100%), 126gm protein (100%), and 2204 ml free water (including flush). 2) Consider TPN/PN if NPO>7 days 3) Monitor NPO status, lab values, weight trend, and I/O Expected Outcomes/Goals: Intake to meet >75% estimated needs Fu 2-3 days Plan discussed with: Other Critical Care Time(min): 40 NAY ELDER MD Dec 09, 2024 10:02
--- NOTE | 2024-12-09 11:03 | DVH ---
CHEST RADIOGRAPH Indication: et tube advancement Technique: Single frontal view of the chest was obtained Comparison: XY CHEST XRAY 1 VIEW on DOS: 12/09/24, XY CHEST XRAY 1 VIEW on DOS: 12/08/24, XY CHEST XRAY 1 VIEW on DOS: 12/07/24, XY CHEST PORTABLE on DOS: 12/06/24, XY CHEST PORTABLE on DOS: 12/05/24 FINDINGS: Lines and Tubes: Endotracheal tube 4 cm from the bree. Nasogastric tube tip in the stomach Lungs: No focal consolidation. Pleura: No effusion. No pneumothorax. Cardiomediastinal contours: Unremarkable Bones: No acute osseous abnormality. IMPRESSION: Cardiomegaly with mild CHF.
[2024-12-09 13:54] LABS: Anion Gap 12 (5-15); Carbon Dioxide 21 mmol/L (20-31); Chloride 110 mmol/L (98-107); Potassium 3.7 mmol/L (3.5-5.1); Sodium 143 mmol/L (136-145)
[2024-12-09 13:56] LABS: Calcium 8.8 mg/dL (8.7-10.4)
[2024-12-09 14:00] LABS: Glucose 93 mg/dL (74-106)
[2024-12-09 14:01] LABS: BUN/Creatinine Ratio 4.7 (10.0-20.0); Blood Urea Nitrogen 10 mg/dL (9-23)
[2024-12-09] MEDS: METOCLOPRAMIDE HCL 10 MG TAB PO SCH (14:16)
[2024-12-09 16:01] LABS: Protein, Urine 32.8 mg/dL (1-14)
--- NOTE | 2024-12-09 16:55 | DVHDSRES ---
Discharge Summary Date of Admission Resident Creating Document: REGINABRIDGETDemetriaFELICIANO RESIDENT Dec 05, 2024 at 15:18 Date of Discharge: Dec 09, 2024 Admitting Diagnosis Seizure Wounds: H&P Patient is 19-year-old male who recently came to the emergency department for seizure activity was sent home from emergency department and found to have seizure-like activity noticed by his mother. EMS was called. During EMS transfer, patient was become apneic, requiring bag mask ventilation, had seizure-like activity at the time of initial evaluation in emergency department, patient had stiffening of extremity, altered and nonresponsive and requiring intubation early in the morning on 12/05/2024 for protection of airway. Past medical history: Seizures, autism, ADHD Past surgical history: Tonsillectomy Family history: None Personal history: Lives with family, studying in college. No history of drug, alcohol or any recreational drug use. Home medication:Xcorpi(Cenobamate) Hospital course Given seizure episode at home, patient was brought to the hospital via EMS, intubated in emergency department for airway protection given patient has ongoing seizure activity worsening without tonic-clonic activity. Patient was continued on sedation with fentanyl, Versed, propofol and home medication Xcorpi(Cenobamate), increased dose to 250 mg once daily as per Neurology recommendation. However given recent seizure activity and altered level of consciousness, patient had aspiration pneumonia, requiring IV antibiotics with Zosyn and vancomycin. However even continuing with IV antibiotics, patient has episodes of tachycardia, high temperature, patient underwent EEG which was unremarkable for active seizure. According to our neurologist, given history of partial complex seizure, patient will need continuous EEG monitoring to rule out ongoing seizure activities. Therefore patient will be transferred to higher level of care at [facility] for further evaluation. Did doctor to doctor conversation, provided all clinicals including ongoing possible seizure activity, ongoing worsening kidney function and they agreed to transfer of care. All information also given to patient's mother, she agreed with the discharge plan as well. Patient has been discharged with ground transportation. Labs/Diagnostic Data: Laboratory Results Test 12/09/24 14:21 12/09/24 12:15 12/09/24 09:37 12/09/24 07:04 Urine Creatinine 87.35 mg/dL (30.0-125.0) Urine Protein/Creatinine Ratio 0.38 Urine Sodium 47 mmol/L (40-220) Urine Total Protein 32.8 mg/dL (1-14) Sodium Level 143 mmol/L (136-145) Potassium Level 3.7 mmol/L (3.5-5.1) Chloride Level 110 mmol/L (98-107) Carbon Dioxide Level 21 mmol/L (20-31) Anion Gap 12 (5-15) Blood Urea Nitrogen 10 mg/dL (9-23) Creatinine 2.15 mg/dL (0.700-1.30) Glomerular Filtration Rate Calc 44 mL/min (>90) BUN/Creatinine Ratio 4.7 (10.0-20.0) Serum Glucose 93 mg/dL (74-106) Calcium Level 8.8 mg/dL (8.7-10.4) Lactic Acid Level 0.8 mmol/L (0.4-2.0) Blood Gas Specimen Type Arterial Blood Gas Sample Site Left radial Blood Gas Patient Temperature 37.0 Arterial Blood Date Drawn [id number] Arterial Blood pH 7.223 (7.350-7.450) Arterial Blood Partial Pressure CO2 48.3 mmHg (35.0-48.0) Arterial Blood Partial Pressure O2 92.5 mmHg (83.0-108.0) Arterial Blood HCO3 19.5 mmol/L (21.0-28.0) Arterial Blood Oxygen Saturation 96.1 % (94.0-98.0) Arterial Blood Base Excess -8.3 mmol/L (-2.0-3.0) Arterial Blood Oxyhemoglobin 95.4 % (94.0-98.0) Arterial Blood Carboxyhemoglobin 0.4 % (0.5-1.5) Arterial Blood Methemoglobin 0.3 % (0.0-1.5) Yohan Test Modified Blood Gas Total Hemoglobin 15.60 g/dL (13.5-17.5) Blood Gas Set Respiration Rate 16.0 Blood Gas Modality Vent - ac FiO2 % 30.0 Blood Gas Tidal Volume 450.0 Blood Gas PEEP or CPAP 5.0 Blood Gas Critical Value Read Back Yes Blood Gas Notified Whom Srirama. radha platt Blood Gas Notified Time [id number] Blood Gas Notified By Christiano. giovani primer inserting machine adjuster Test 12/09/24 02:30 12/05/24 15:12 12/05/24 13:38 White Blood Count 5.3 10^3/uL (4.4-10.8) Red Blood Count 4.10 10^6/uL (4.5-5.90) Hemoglobin 12.6 g/dL (13.5-17.5) Hematocrit 37.0 % (41.0-53.0) Mean Corpuscular Volume 90.2 fL (80.0-100.0) Mean Corpuscular Hemoglobin 30.7 pg (28.0-32.0) Mean Corpuscular Hemoglobin Concent 34.0 g/dL (32.0-36.0) Red Cell Distribution Width 13.1 % (11.8-14.3) Platelet Count 121 10^3/uL (140-450) Mean Platelet Volume 9.1 fL (6.9-10.8) Neutrophils (%) (Auto) 62.5 % (37.0-80.0) Lymphocytes (%) (Auto) 18.0 % (10.0-50.0) Monocytes (%) (Auto) 14.8 % (0.0-12.0) Eosinophils (%) (Auto) 4.5 % (0.0-7.0) Basophils (%) (Auto) 0.2 % (0.0-2.0) Neutrophils # (Auto) 3.3 10 ^3/uL (1.6-8.6) Lymphocytes # (Auto) 0.9 10 ^3/uL (0.4-5.4) Monocytes # (Auto) 0.8 10 ^3/uL (0-1.3) Eosinophils # (Auto) 0.2 10 ^3/uL (0-0.8) Basophils # (Auto) 0 10 ^3/uL (0-0.2) Nucleated Red Blood Cells 0.2 % Magnesium Level 2.1 mg/dL (1.6-2.6) Total Bilirubin 0.3 mg/dL (0.2-1.0) Aspartate Amino Transferase (AST) 44 U/L (13-40) Alanine Aminotransferase (ALT) 30 U/L (7-40) Alkaline Phosphatase 92 U/L (46-116) Total Protein 6.0 g/dL (5.7-8.2) Albumin 3.5 g/dL (3.2-4.8) Random Vancomycin Level 22.4 ug/mL (5-10) Troponin I High Sensitivity < 3 ng/L (</=54) Urine Color Light-yellow (Yellow) Urine Clarity Clear (Clear) Urine pH 6.5 (5.0-9.0) Urine Specific [place] 1.020 (1.001-1.035) Urine Protein Trace (Negative) Urine Ketones Negative (Negative) Urine Blood Negative /uL (Negative) Urine Nitrite Negative (Negative) Urine Bilirubin Negative (Negative) Urine Urobilinogen Normal mg/dL (Negative) Urine Leukocyte Esterase Negative /uL (Negative) Urine RBC 1 /hpf (0 - 3) Urine Microscopic WBC 1 /HPF (0-3) Urine Squamous Epithelial Cells None seen /hpf (<5) Urine Bacteria None seen /hpf (None Seen) Urine Glucose Normal mg/dL (Normal) Other Laboratory Tests 12/09/24 12:15 12/09/24 02:30 Brief Hx & Hospital Course: Condition at Discharge: Higher Level of Care Final Diagnosis/Problems List partial complex Seizures Altered mental status likely due to above Current history of ADHD Autism Acute hypoxic respiratory failure due to possible aspiration pneumonia Aspiration pneumonia Lactic acidosis likely due to seizures: Improved FRANCIE due to VMN Recent history of UTI Discharge Disposition: Acute Care Facility Discharge Instruct/Medications Diet: See Comment Diet comment: Feedinf via G tube as tolerated Activity: See Comment Activity comment: Intubated Follow Up/Referral: tranfer to higher level of care Medications: -See transfer paper Scheduled Cenobamate (Xcopri), 50 MG PO DAILY, (Reported) Cenobamate (Xcopri), 200 MG PO HS, (Reported) Cephalexin Monohydrate (Cephalexin), 1 CAP PO QID Cholecalciferol (Vitamin D3), 1 TAB PO DAILY, (Reported) Clonidine Hydrochloride (Clonidine Hcl), 0.2 MG PO HS, (Reported) Loratadine (Claritin), 1 TAB PO DAILY, (Reported) Magnesium Oxide (Magnesium Oxide), 1 TAB PO HS, (Reported) Scheduled PRN Albuterol Sulfate (Albuterol Sulfate Hfa), 108 MCG IN Q4HP PRN Discharge Statement: "Patient was advised to return to the ER or call 911 if any headaches, dizziness, shortness of breath, chest pain, abdominal pain, bleeding, fevers, or worsening of medical condition. Patient was counseled about treatment plan, medications, possible side effects, patientverbalized understanding. All questions were answered to the best of my ability. This discharge took greater then 30 minutes in planning, reviewing documentation, counseling the patient, and discussing with other team members." ASSESSMENT ASSESSMENT Assessment Partial complex Seizures Altered mental status likely due to above Acute respiratory failure DEB AVILES RESIDENT Dec 09, 2024 16:55
--- NOTE | 2024-12-10 07:33 | ECG ---
[facility] Test Date: 2024-12-08 Test Time: 18:46:14 Pat Name: ZACHERY AMBROSE Department: icu Room: [address] [place] [address] Gender: M Shoemaker Apprentice: Jarvis ROCHE : 2005 Requested By: DEB MARTE Order Number: [id number] Reading MD: Neo Calixto Measurements Intervals [place] Rate: 135 P: 24 FL: 148 QRS: 47 QRSD: 95 T: -42 QT: 275 QTc: 413 Interpretive Statements Sinus tachycardia Borderline T abnormalities, inferior leads Electronically Signed On 12-10-2024 13:08:20 PST by Neo Calixto Please click the below link to view image of tracing.
[2024-12-10] MEDS ORDERED: XCOPRI PO SCH (10:00)
--- NOTE | 2024-12-10 23:15 | DVHEEG2 ---
Neurology EEG Procedural Note Procedural Note EXAM DATE: 12/09/2024 REFERRING DOCTOR: Dr. Elder TECHNIQUE: Eighteen channels of EEG, 2 channels of EOG, and 1 channel of EKG were recorded using the International 10/20 system. CLINICAL DATA: The patient was referred for an EEG evaluation for the evidence of seizure disorder. MEDICATIONS: Seizure chart BACKGROUND ACTIVITY: The record showed large amount of mostly high voltage polymorphic delta and theta activity over both hemispheres, that was reactive to external eye ACTIVATION: Hyperventilation: Not done Photic Stimulation: Not done Sleep: Not seen IMPRESSION: This is a remarkably abnormal EEG. This EEG is seen in severe cerebral dysfunction due to metabolic/hypoxic encephalopathy or medication effect, please correlate clinically. The EKG channel showed regular heart rate of 102 per minute [place] [address] NAY ELDER MD Dec 10, 2024 23:15
== END 2024-12-09 16:40 | disposition short-term general hospital (02) | DRG 133 ==
LOC: EDBD 09:56 → ER 09:56 → OVERFLOW 15:18 → ICU WEST 12-06 02:47
PROVIDERS: ADMIT Internal Medicine; ATTEND Internal Medicine
PROC: 0BH18EZ Insertion of Endotracheal Airway into Trachea, Via Natural or Artificial Opening Endoscopic (ICD-10-PCS; principal; 2024-12-05)
PROC: 5A1945Z Respiratory Ventilation, 24-96 Consecutive Hours (ICD-10-PCS; 2024-12-05)
PROC: 06HY33Z Insertion of Infusion Device into Lower Vein, Percutaneous Approach (ICD-10-PCS; 2024-12-05)
DX: J96.01 Acute respiratory failure with hypoxia (principal); J69.0 Pneumonitis due to inhalation of food and vomit; N17.0 Acute kidney failure with tubular necrosis; R40.2A Nontraumatic coma due to underlying condition; G40.201 Localization-related (focal) (partial) symptomatic epilepsy and epileptic syndromes with complex partial seizures, not intractable, with status epilepticus; G92.9 Unspecified toxic encephalopathy; F90.9 Attention-deficit hyperactivity disorder, unspecified type; J45.909 Unspecified asthma, uncomplicated; F84.0 Autistic disorder; E87.20 Acidosis, unspecified; Z88.7 Allergy status to serum and vaccine; Z88.1 Allergy status to other antibiotic agents; Z91.040 Latex allergy status; Z82.49 Family history of ischemic heart disease and other diseases of the circulatory system; Z83.2 Family history of diseases of the blood and blood-forming organs and certain disorders involving the immune mechanism; Z80.8 Family history of malignant neoplasm of other organs or systems; Z83.3 Family history of diabetes mellitus; Z86.61 Personal history of infections of the central nervous system; Z79.899 Other long term (current) drug therapy
CPT/HCPCS: 31500; 36415; 36556; 36600; 70450; 71045; 80048; 80053; 80202; 81001; 82570; 82805; 83605; 83735; 84156; 84300; 84484; 85025; 87040; 87070; 87081; 87086; 87205; 93005; 94002; 94003; 95819; 96360; 99291; 99292; G0378; J0131; J2470; J2543; J2704; J3480; J7060

== ENCOUNTER 2024-12-27 11:15 | Emergency (ER) | payer MEDICAID ==
[~2024-12-27] VITALS: Ht 185.4 cm; Wt 77.2 kg
[~2024-12-27 11:15] MED LIST changes: +CENO200T PO; +CHOL20007 PO; +CLON0.2D6 PO; +LORA-622 PO; +MAGN400T40 PO
--- NOTE | 2024-12-27 11:30 | ED.PDOC ---
History of Present Illness HPI Comments 19-year-old male who comes in with chief complaint of shortness a breath as well as drooling today with some cold sweats. The patient was recently extubated on December 15 at [facility] for persistent seizures. The patient then went home and when the grandmother woke up and saw the patient he was having some drooling and cold sweats. She has thought that he was short of breath when the paramedics arrived, the patient has had a normal oxygen saturation of 99% in an Accu-Chek of 92. They were also concerned that the patient may be dizzy. He has had no chest pain, nausea, vomiting or diarrhea. Chief Complaint: Flu like Time Seen by MD: 11:19 Primary Care Provider: UNKNOWN Reviewed Notes: Nurses Notes, Inset Cutter Notes, Medications, Allergies (Allergies listed above) Allergies: Coded Allergies: Flu Virus Vaccine (Unverified Allergy, Severe, 07/02/23) Latex (Unverified Allergy, Severe, 07/02/23) Home Meds Active Scripts Albuterol Sulfate (Albuterol Sulfate Hfa) 108 Mcg/Act Aer, 108 MCG IN Q4HP PRN, #1 AER 1 Refill Prov:J LUIS BENÍTEZ PAC 10/26/24 Cephalexin Monohydrate (Cephalexin) 500 Mg Cap, 1 CAP PO QID for 10 Days, #40 CAP Prov:BRANDON ZULUAGA MD 09/21/24 Reported Medications Loratadine (Claritin) 10 Mg Tab, 1 TAB PO DAILY, #30 TAB 5 Refills 12/05/24 Cholecalciferol (VITAMIN D3) 2,000 Unit Tab, 1 TAB PO DAILY, #30 TAB 5 Refills 12/05/24 Magnesium Oxide (MAGNESIUM OXIDE) 400 Mg Tab, 1 TAB PO HS, #30 TAB 5 Refills 12/05/24 Clonidine Hydrochloride (Clonidine Hcl) 0.2 Mg/24 Hr Dis, 0.2 MG PO HS for 30 Days, MG 12/05/24 Cenobamate (Xcopri) 200 Mg Tab, 200 MG PO HS, TAB 12/05/24 Cenobamate (Xcopri) 50 Mg Tab, 50 MG PO DAILY for 30 Days, #30 TAB Take one pill daily in addition to the 200 mg tablets that you already have on hand 12/04/24 Information Source: Patient, Emergency Med Personnel, Legal Guardian Mode of Arrival: EMS Severity: Mild Timing: Hours Duration: Since onset Prehospital treatment: Accucheck (92), Manager Welding Associated signs and symptoms Generalized weakness with the drooling and cold sweats as well as dizziness Past Medical History PAST MEDICAL HISTORY: Asthma, Seizures Past Medical History (Other): ADHD, autism Surgical History: Tonsillectomy Family History Family History: No family hx of Cancer Social History Smoker: Non-Smoker Alcohol: Denies ETOH Use Drugs: Denies Drug Use Lives In: Home Constitutional: reports: sweats (Cold sweats), others (Drooling ); denies: chills, diaphoresis, fatigue, fever, malaise, weakness EENTM: denies: blurred vision, double vision, ear bleeding, ear discharge, ear drainage, ear pain, ear ringing, eye pain, eye redness, hearing loss, mouth pain, mouth swelling, nasal discharge, nose bleeding, nose congestion, nose pain, photophobia, tearing, throat pain, throat swelling, voice changes, others Respiratory: reports: shortness of breath; denies: cough, hemoptysis, orthopnea, SOB at rest, SOB with excertion, stridor, wheezing, others Cardiovascular: denies: chest pain, dizzy spells, diaphoresis, Dyspnea on exertion, edema, irregular heart beat, left arm pain, lightheadedness, palpitations, PND, syncope, others Gastrointestinal: denies: abdomen distended, abdominal pain, blood streaked bowels, constipated, diarrhea, dysphagia, difficulty swallowing, hematemesis, melena, nausea, poor appetite, poor fluid intake, rectal bleeding, rectal pain, vomiting, others Genitourinary: denies: burning, dysuria, flank pain, frequency, hematuria, incontinence, penile discharge, penile sore, pain, testicle pain, testicle swelling, urgency, others Neurological: reports: dizziness; denies: fainting, headache, left sided numbness, left sided weakness, numbness, paresthesia, pre-existing deficit, right sided numbness, right sided weakness, seizure, speech problems, tingling, tremors, weakness, others Musculoskeletal: denies: back pain, gout, joint pain, joint swelling, muscle pain, muscle stiffness, neck pain, others Integumetry: denies: bruises, change in color, change in hair/nails, dryness, laceration, lesions, lumps, rash, wounds, others Allergic/Immunocompromised: denies: Difficulty Healing, Frequent Infections, Hives, Itching, others Hematologic/Lymphatic: denies: anemia, blood clots, easy bleeding, easy bruising, swollen glands, others Endocrine: denies: excessive hunger, excessive sweating, excessive thirst, excessive urination, flushing, intolerance to cold, intolerance to heat, unexplained weight gain, unexplained weight loss, others Psychiatric: denies: anxiety, bipolar disorder, depression, hopeless, panic disorder, schizophrenia, sleepless, suicidal, others Physical Exam General Appearance: No Apparent Distress, Other (The patient has autism) HEENT: Normal ENT Inspection, Pharynx Normal, TMs Normal Neck: Full Range of Motion, Non-Tender, Normal, Normal Inspection Respiratory: Chest Non-Tender, Lungs Clear, No Accessory Muscle Use, No Respiratory Distress, Normal Breath Sounds Cardiovascular: No Edema, No JVD, No Murmur, No Gallop, Normal Peripheral Pulses, Regular Rate/Rhythm Breast Exam: Deferred Gastrointestinal: No Organomegaly, Non Tender, No Pulsatile Mass, Normal Bowel Sounds, Soft Genitalia: Deferred Pelvic: Deferred Rectal: Deferred Extremities: No calf tenderness, Normal capillary refill, Normal inspection, Normal range of motion, Non-tender, No pedal edema Musculoskeletal : Apperance: Normal Neurologic: Alert, emergency dispatch operator II-XII nml as Tested, No Motor Deficits, Normal Affect, Normal Mood, No Sensory Deficits Cerebellar Function: Normal Reflexes: Normal Skin: Dry, Normal Color, Warm Lymphatic: No Adenopathy Was a procedure done? Was a procedure done?: No Differential Dx Considerations may include: Pneumonia, bronchitis, COVID X-Ray, Labs, Meds, VS Vital Signs Date Time Temp Pulse Resp B/P (MAP) Pulse Ox O2 Delivery O2 Flow Rate FiO2 12/27/24 12:00 98.6 87 21 115/77 (90) 95 98.6 12/27/24 12:00 87 21 95 Room Air* 0 12/27/24 11:18 98.9 82 20 117/74 99 98.9 Lab Test 12/27/24 12:23 12/27/24 11:45 12/27/24 11:38 Range/Units POC Glucose 103 70-106 mg/dl Influenza Type A Antigen Negative Negative Influenza Type B Antigen Negative Negative SARS-CoV-2 Antigen (Rapid) Negative NEGATIVE White Blood Count 3.9 L 4.4-10.8 10^3/uL Red Blood Count 4.94 4.5-5.90 10^6/uL Hemoglobin 14.9 13.5-17.5 g/dL Hematocrit 44.2 41.0-53.0 % Mean Corpuscular Volume 89.5 80.0-100.0 fL Mean Corpuscular Hemoglobin 30.1 28.0-32.0 pg Mean Corpuscular Hemoglobin Concent 33.7 32.0-36.0 g/dL Red Cell Distribution Width 13.1 11.8-14.3 % Platelet Count 225 140-450 10^3/uL Mean Platelet Volume 9.8 6.9-10.8 fL Neutrophils (%) (Auto) 43.8 37.0-80.0 % Lymphocytes (%) (Auto) 43.6 10.0-50.0 % Monocytes (%) (Auto) 9.5 0.0-12.0 % Eosinophils (%) (Auto) 1.9 0.0-7.0 % Basophils (%) (Auto) 1.2 0.0-2.0 % Neutrophils # (Auto) 1.7 1.6-8.6 10 ^3/uL Lymphocytes # (Auto) 1.7 0.4-5.4 10 ^3/uL Monocytes # (Auto) 0.4 0-1.3 10 ^3/uL Eosinophils # (Auto) 0.1 0-0.8 10 ^3/uL Basophils # (Auto) 0 0-0.2 10 ^3/uL Nucleated Red Blood Cells 0.0 % Sodium Level 141 136-145 mmol/L Potassium Level 4.2 3.5-5.1 mmol/L Chloride Level 104 98-107 mmol/L Carbon Dioxide Level 26 20-31 mmol/L Anion Gap 11 5-15 Blood Urea Nitrogen 10 9-23 mg/dL Creatinine 1.02 0.700-1.30 mg/dL Glomerular Filtration Rate Calc 107 >90 mL/min BUN/Creatinine Ratio 9.8 L 10.0-20.0 Serum Glucose 89 74-106 mg/dL Calcium Level 10.1 8.7-10.4 mg/dL PROCEDURE(s): CXRP - CHEST PORTABLE IMPRESSION: NO ACUTE CARDIOPULMONARY PROCESS. Images Reviewed?: Images reviewed and evaluated by me Time of 1ST Reevaluation: 11:29 Reevaluation 1ST: Unchanged Patient Education/Counseling: Diagnosis, Treatment, Prognosis, Need For Follow Up Family Education/Counseling: Diagnosis, Treatment, Prognosis, Need For Follow Up SEPSIS Sepsis Screen Physician Orders Chest Portable (12/27/24 11:30) Heplock Iv (12/27/24 11:23) Vital Signs Date Time Temp Pulse Resp B/P (MAP) Pulse Ox O2 Delivery O2 Flow Rate FiO2 12/27/24 12:00 98.6 87 21 115/77 (90) 95 98.6 12/27/24 12:00 87 21 95 Room Air* 0 21 12/27/24 11:18 98.9 82 20 117/74 99 98.9 Laboratory Tests Test 12/27/24 11:38 White Blood Count 3.9 10^3/uL (4.4-10.8) L Departure 1 Departure Time of Disposition: 13:21 Impression: Primary Impression: Viral syndrome Disposition: 01 HOME / SELF CARE / HOMELESS Condition: Fair Discharged With: Self Critical Care Note Critical Care Time?: No Stability Stability form required: No Heart Score Heart Score: Heart Score Response (Comments) Value History N/A 0 EKG N/A 0 Age N/A 0 Risk Factors N/A 0 Troponin N/A 0 Total 0 I personally scribed for RICK ERNANDEZ MD ([email or web address]) on 12/27/24 at 13:08. Electronically submitted by Ramon Sharma ([email or web address]). RICK ERNANDEZ MD Dec 27, 2024 11:30
[2024-12-27 12:00] VITALS: PULSE 87; RESP 21; O2SAT 95
--- NOTE | 2024-12-27 12:10 | DVH ---
CLINICAL HISTORY: sob TECHNIQUE: Single view of the chest was obtained. COMPARISON: XY CHEST XRAY 1 VIEW on DOS: 12/09/24, XY CHEST XRAY 1 VIEW on DOS: 12/09/24, XY CHEST XRAY 1 VIEW on DOS: 12/08/24, XY CHEST XRAY 1 VIEW on DOS: 12/07/24, XY CHEST PORTABLE on DOS: 12/06/24 FINDINGS: The heart size and pulmonary vasculature are normal. The lungs are clear. IMPRESSION: NO ACUTE CARDIOPULMONARY PROCESS.
[2024-12-27 12:13] LABS: Hematocrit 44.2 % (41.0-53.0); Hemoglobin 14.9 g/dL (13.5-17.5); Mean Corpuscular Hemoglobin 30.1 pg (28.0-32.0); Mean Corpuscular Volume 89.5 fL (80.0-100.0); Nucleated Red Blood Cells % 0.0 %
[2024-12-27 12:27] LABS: Chloride 104 mmol/L (98-107); Potassium 4.2 mmol/L (3.5-5.1); Sodium 141 mmol/L (136-145)
[2024-12-27 12:28] LABS: Anion Gap 11 (5-15); Carbon Dioxide 26 mmol/L (20-31)
[2024-12-27 12:29] LABS: Calcium 10.1 mg/dL (8.7-10.4)
[2024-12-27 12:34] LABS: BUN/Creatinine Ratio 9.8 (10.0-20.0); Blood Urea Nitrogen 10 mg/dL (9-23); Glucose 89 mg/dL (74-106)
[2024-12-27 13:10] LABS: COVID19 ANTIGEN SOFIA FIA NEGATIVE (NEGATIVE)
[2024-12-27] MEDS ORDERED: ZOFR4T PO (13:22)
[2024-12-27 14:27] LABS: Urine Protein, UAD Negative (Negative)
[2024-12-27 14:34] VITALS: BP 113/71; PULSE 81; RESP 15; TEMP 98.8; O2SAT 97
== END 2024-12-27 14:45 | disposition home or self-care (01) ==
LOC: ER 11:15 → EDBD 11:15 → ER 14:45
DX: B34.9 Viral infection, unspecified (principal); J45.909 Unspecified asthma, uncomplicated; Z90.89 Acquired absence of other organs; Z91.040 Latex allergy status; Z88.7 Allergy status to serum and vaccine; Z20.822 Contact with and (suspected) exposure to COVID-19; Z79.899 Other long term (current) drug therapy
CPT/HCPCS: 36415; 71045; 80048; 81001; 82947; 82962; 85025; 87426; 87804

== ENCOUNTER 2025-01-10 23:39 | Inpatient (IN) | payer MEDICAID ==
[~2025-01-10] VITALS: Ht 170.2 cm; Wt 73.0 kg
[~2025-01-10 23:39] MED LIST changes: +ZOFR4T PO
--- NOTE | 2025-01-10 23:54 | ED.PDOC ---
History of Present Illness HPI Comments levy: Generalized weakness, lethargic Patient was recently seen in our facility and transferred to higher level of care with the following diagnosis: Final Diagnosis/Problems List partial complex Seizures Altered mental status likely due to above Current history of ADHD Autism Acute hypoxic respiratory failure due to possible aspiration pneumonia Aspiration pneumonia Lactic acidosis likely due to seizures: Improved FRANCIE due to [facility] Recent history of UTI HPI: Poor Historian. 19-year-old male brought in by ambulance from home for episodes of lethargy and generalized weakness 10 minutes prior to calling 911 witnessed by the mother. No seizure-like activity. No fall or trauma or injury. Mother does not suspect any overdosing on any medications. Mother states compliance with all medications. Per EMS, all vital signs prior to arrival were stable. Upon arrival to our ED, mother states that the patient looks significantly khanh r than what he was earlier at home today. She thinks he is almost back to his baseline. Past Medical History: Autism, epilepsy, mesenteric adenitis, ADHD Past Surgical History: Tonsillectomy Allergies to Keppra and latex Denies any use of drugs or alcohol. REVIEW OF SYSTEMS: CONSTITUTIONAL: Denies acute: fever, diaphoresis, chills, HEAD: Denies acute: headache, photophobia Eyes: Denies acute: Double vision, vision loss, eye pain, eye discharge. EARS: Denies acute: tinnitus, hearing loss, ear discharge, ear pain, THROAT: Denies acute: sore throat, swelling, difficulty swallowing , pain with swallowing, change in voice. NECK: Denies acute: neck pain, neck swelling, stiff neck. HEART: Denies acute : chest pain, palpitations, LUNGS: Denies acute: SOB, wheezing, cough, hemoptysis ABDOMEN: Denies acute: abdominal pain, Nausea, Vomiting, diarrhea, melena , hematemesis, hematochezia SKIN: Denies acute: rash, redness, lesions, itchiness. EXTREMITIES: Denies acute: calf pain, numbness, tingling, weakness, denies pain in extremity. Denies acute: Low back pain. Neuro: Denies acute: focal neurological deficit, motor or sensory focal neurological deficit, tremors, seizure like activity, confusion, dizziness, change in mental status, loss of bowel or bladder function, cauda equina like symptoms. : Denies acute: dysuria, hematuria, flank pain, increase in urinary frequency. PSYCH: Denies acute: hallucination, suicidal ideation, homicidal ideation. PHYSICAL EXAM: General: ----mild----acute distress, awake and alert. Head: normocephalic, atraumatic. No raccoon's eyes, no wilkes sign. Neck: supple, trachea is midline, no swelling. Throat: Normal phonation. Eyes:, no erythema, no purulent discharge, no proptosis, no icterus. Heart: regular rate, regular rhythm, no significant murmur appreciated. Lungs: no apparent respiratory distress, No wheezing, no rhonchi, no crackles. No stridors Clear to auscultation bilaterally. Abdomen: non tender to palpation, non distended, soft, no guarding, no rebound, + bowel sounds. Neuro: Awake, Alert, oriented to name, , , follows commands Skin: no petechia, no purpura, no cyanosis, slightly-pale, not jaundice. Lower extremities: --no - Pitting edema no deformity, no focal swelling, no calf TTP. Makes eye contact. Face: no apparent facial droop. ED COURSE: DISCLAIMER: This medical document was created using an electronic medical record system with voice recognition software and computerized dictation system. Although this document has been carefully reviewed, there might still be some phonetic and t ypographical errors. Occasional wrong-word or "sound-alike" substitutions may have occurred due to the inherent limitations of voice recognition software. These areas are purely typographical due to imperfections of the software programs and do not reflect any compromise in the patient's medical care. Please read the chart carefully and recognize, using context, where these substitutions have occurred. Time Seen by MD: 23:42 Primary Care Provider: UNKNOWN Reviewed Notes: Allergies Allergies: Coded Allergies: Flu Virus Vaccine (Unverified Allergy, Severe, 07/02/23) Latex (Unverified Allergy, Severe, 07/02/23) Home Meds Active Scripts Ondansetron Odt 4MG Tab (ZOFRAN PO) 4 Mg Tb, 4 MG PO Q12HP PRN for 5 Days, #10 TAB ODT TAB-DISSOLVE IN MOUTH, THEN SWALLOW Prov:RICK ERNANDEZ MD 12/27/24 Albuterol Sulfate (Albuterol Sulfate Hfa) 108 Mcg/Act Aer, 108 MCG IN Q4HP PRN, #1 AER 1 Refill Prov:J LUIS BENÍTEZ PAC 10/26/24 Cephalexin Monohydrate (Cephalexin) 500 Mg Cap, 1 CAP PO QID for 10 Days, #40 CAP Prov:BRANDON ZULUAGA MD 09/21/24 Reported Medications Loratadine (Claritin) 10 Mg Tab, 1 TAB PO DAILY, #30 TAB 5 Refills 12/05/24 Cholecalciferol (VITAMIN D3) 2,000 Unit Tab, 1 TAB PO DAILY, #30 TAB 5 Refills 12/05/24 Magnesium Oxide (MAGNESIUM OXIDE) 400 Mg Tab, 1 TAB PO HS, #30 TAB 5 Refills 12/05/24 Clonidine Hydrochloride (Clonidine Hcl) 0.2 Mg/24 Hr Dis, 0.2 MG PO HS for 30 Days, MG 12/05/24 Cenobamate (Xcopri) 200 Mg Tab, 200 MG PO HS, TAB 12/05/24 Cenobamate (Xcopri) 50 Mg Tab, 50 MG PO DAILY for 30 Days, #30 TAB Take one pill daily in addition to the 200 mg tablets that you already have on hand 12/04/24 Information Source: Patient, Relative (Mother), Emergency Med Personnel Past Medical History PAST MEDICAL HISTORY: Asthma, Seizures Surgical History: Tonsillectomy Family History Family History: No family hx of Cancer Social History Smoker: Non-Smoker Alcohol: Denies ETOH Use Drugs: Denies Drug Use Lives In: Home Was a procedure done? Was a procedure done?: No Differential Dx Considerations may include: seizures, postictal state, hypoglycemia, medication effects X-Ray, Labs, Meds, VS Vital Signs Date Time Temp Pulse Resp B/P (MAP) Pulse Ox O2 Delivery O2 Flow Rate FiO2 01/11/25 05:42 16 94 Room Air* 0 21 01/11/25 05:00 75 16 101/53 (69) 95 01/11/25 03:00 73 14 102/60 (74) 97 01/11/25 01:30 Room Air* 0 21 01/11/25 01:30 98.5 77 19 98/64 (75) 94 98.5 01/10/25 23:39 98.9 89 16 117/79 97 98.9 Lab Test 01/11/25 04:10 01/11/25 03:04 01/11/25 02:32 01/11/25 00:32 Range/Units Lactic Acid Level 3.3 *H 3.8 *H 2.9 *H 0.4-2.0 mmol/L Urine Color Light-yellow Yellow Urine Clarity Clear Clear Urine pH 6.0 5.0-9.0 Urine Specific [place] 1.023 1.001-1.035 Urine Protein Negative Negative Urine Ketones Trace Negative Urine Blood Negative Negative /uL Urine Nitrite Negative Negative Urine Bilirubin Negative Negative Urine Urobilinogen Normal Negative mg/dL Urine Leukocyte Esterase Negative Negative /uL Urine RBC 1 0 - 3 /hpf Urine Microscopic WBC 1 0-3 /HPF Urine Squamous Epithelial Cells None seen <5 /hpf Urine Bacteria None seen None Seen /hpf Urine Mucus Few None Seen Urine Glucose Normal Normal mg/dL Urine Opiates Screen Neg NEGATIVE Urine Fentanyl Screen Neg NEGATIVE Urine Barbiturates Screen Pos NEGATIVE Urine Phencyclidine Screen Neg NEGATIVE Urine Amphetamines Screen Neg NEGATIVE Urine Benzodiazepines Screen Neg NEGATIVE Urine Cocaine Screen Neg NEGATIVE Urine Cannabinoids Screen Neg NEGATIVE White Blood Count 5.2 4.4-10.8 10^3/uL Red Blood Count 4.76 4.5-5.90 10^6/uL Hemoglobin 14.3 13.5-17.5 g/dL Hematocrit 42.9 41.0-53.0 % Mean Corpuscular Volume 90.0 80.0-100.0 fL Mean Corpuscular Hemoglobin 30.0 28.0-32.0 pg Mean Corpuscular Hemoglobin Concent 33.3 32.0-36.0 g/dL Red Cell Distribution Width 13.6 11.8-14.3 % Platelet Count 101 L 140-450 10^3/uL Mean Platelet Volume 9.6 6.9-10.8 fL Neutrophils (%) (Auto) 39.5 37.0-80.0 % Lymphocytes (%) (Auto) 47.8 10.0-50.0 % Monocytes (%) (Auto) 8.9 0.0-12.0 % Eosinophils (%) (Auto) 3.1 0.0-7.0 % Basophils (%) (Auto) 0.7 0.0-2.0 % Neutrophils # (Auto) 2.0 1.6-8.6 10 ^3/uL Lymphocytes # (Auto) 2.5 0.4-5.4 10 ^3/uL Monocytes # (Auto) 0.5 0-1.3 10 ^3/uL Eosinophils # (Auto) 0.2 0-0.8 10 ^3/uL Basophils # (Auto) 0 0-0.2 10 ^3/uL Nucleated Red Blood Cells 0.0 % Troponin I High Sensitivity < 3 L </=54 ng/L Test 01/10/25 23:59 Range/Units Sodium Level 141 136-145 mmol/L Potassium Level 4.7 3.5-5.1 mmol/L Chloride Level 103 98-107 mmol/L Carbon Dioxide Level 24 20-31 mmol/L Anion Gap 14 5-15 Blood Urea Nitrogen 18 9-23 mg/dL Creatinine 1.00 0.700-1.30 mg/dL Glomerular Filtration Rate Calc 110 >90 mL/min BUN/Creatinine Ratio 18.0 10.0-20.0 Serum Glucose 107 H 74-106 mg/dL Calcium Level 9.7 8.7-10.4 mg/dL Magnesium Level 2.0 1.6-2.6 mg/dL Total Bilirubin 0.2 0.2-1.0 mg/dL Aspartate Amino Transferase (AST) 22 13-40 U/L Alanine Aminotransferase (ALT) 19 7-40 U/L Alkaline Phosphatase 74 46-116 U/L Troponin I High Sensitivity < 3 L </=54 ng/L Total Protein 7.1 5.7-8.2 g/dL Albumin 4.7 3.2-4.8 g/dL Time of 1ST Reevaluation: 03:27 Reevaluation 1ST: Resolved Patient Education/Counseling: Diagnosis, Treatment Family Education/Counseling: Diagnosis, Treatment Comments while pt was waiting for discharge, he developed sob again. he will be admitted for asthma exacerbation Comments MDM: patient presented with the above HPI.--generalized weakness----workup was initiated. patient was found with the above mentioned diagnosis. the following medications were ordered: please refer to order lists of meds and tests obtained by myself Dr. Abbasi. Patient ED course and VS have been stabilized. Patient has been reassessed in the ED and remained in a stable condition. Pertinent incidental findings were discussed with the patient and/or family. Patient/family voices understanding and is agreeable with plan. Patient has been observed in the ED adequate length of time to insure improvement/stability. Escalation of care considered: Consideration of escalation to observation or admission Patient was given fluids and lactic acid showed some improvement. I was told later after I left that While patient was waiting he started developing some wheezing and mild respiratory distress. Patient was ADMITTED to the medicine team for further evaluation and treatment of their presentation. All the reports of any imaging studies that were ordered by myself were reviewed by myself. Departure 1 Departure Time of Disposition: 03:27 Impression: Primary Impression: Generalized weakness Additional Impressions: Dehydration Asthma exacerbation Elevated lactic acid level Disposition: ADMITTED INPATIENT Admit to: Tele Condition: Guarded Additional Instructions: Critical Care Note Critical Care Time?: No Critical care comment: I personally scribed for TRACIE ABBASI DO ([email or web address]) on 01/11/25 at 06:00. Electronically submitted by Mayela Lowe ([facility]). TRCAIE ABBASI DO Jan 10, 2025 23:54 JARROD MERINO MD Jan 11, 2025 05:32
[2025-01-11 00:49] LABS: Hematocrit 42.9 % (41.0-53.0); Hemoglobin 14.3 g/dL (13.5-17.5); Mean Corpuscular Hemoglobin 30.0 pg (28.0-32.0); Mean Corpuscular Volume 90.0 fL (80.0-100.0); Nucleated Red Blood Cells % 0.0 %
[2025-01-11 00:55] LABS: Alanine Aminotransferase 19 U/L (7-40); Albumin 4.7 g/dL (3.2-4.8); Alkaline Phosphatase 74 U/L (46-116); Anion Gap 14 (5-15); BUN/Creatinine Ratio 18.0 (10.0-20.0); Blood Urea Nitrogen 18 mg/dL (9-23); Calcium 9.7 mg/dL (8.7-10.4); Carbon Dioxide 24 mmol/L (20-31); Chloride 103 mmol/L (98-107); Magnesium 2.0 mg/dL (1.6-2.6); Potassium 4.7 mmol/L (3.5-5.1); Sodium 141 mmol/L (136-145); Total Protein 7.1 g/dL (5.7-8.2)
[2025-01-11 00:58] LABS: Bilirubin, Total 0.2 mg/dL (0.2-1.0); Glucose 107 mg/dL (74-106)
[2025-01-11 01:12] LABS: Lactic Acid w/Reflex 2.9 mmol/L (0.4-2.0)
[2025-01-11] MEDS: SODIUM CHLORIDE 0.9% 1,000 ML IV ONE ×4 (01:35→05:16)
--- NOTE | 2025-01-11 03:21 | DVH ---
CHEST RADIOGRAPH Indication: gen weak Technique: Single frontal view of the chest was obtained COMPARISON: XY CHEST PORTABLE on DOS: 12/27/24, XY CHEST XRAY 1 VIEW on DOS: 12/09/24, XY CHEST XRAY 1 VIEW on DOS: 12/09/24, XY CHEST XRAY 1 VIEW on DOS: 12/08/24, XY CHEST XRAY 1 VIEW on DOS: 12/07/24 FINDINGS: Lines and Tubes: None Lungs: Clear Pleura: No effusion. No pneumothorax. Cardiomediastinal contours: Unremarkable Bones: Unremarkable IMPRESSION: 1. No acute disease.
[2025-01-11 03:54] LABS: Urine Protein, UAD Negative (Negative)
[2025-01-11 04:08] LABS: Barbiturate Scree,Urine Pos (NEGATIVE)
[2025-01-11 04:18] LABS: Amphetamine Screen, Urine Neg (NEGATIVE); Benzodiazephine Screen, Urine Neg (NEGATIVE); Cannabinoid Screen, Urine Neg (NEGATIVE); Cocaine Screen, Urine Neg (NEGATIVE); Opiate Scree,Urine Neg (NEGATIVE); Phencyclidine Screen, Urine Neg (NEGATIVE)
[2025-01-11 05:02] LABS: Lactic Acid w/Reflex 3.3 mmol/L (0.4-2.0)
[2025-01-11] MEDS: ALBUTEROL SULF 2.5 MG/0.5ML(0.5%) NEB SOLN NEB ONE (05:40)
[2025-01-11] MEDS ORDERED: MORPHINE SULFATE INJ 2 MG/ml SYRG IV PRN (06:15)
[2025-01-11] MEDS ORDERED: DOCUSATE SOD 100 MG CAP PO PRN (06:15)
[2025-01-11] MEDS ORDERED: ONDANSETRON HCL 4 MG/2 ML VIAL IV PRN (06:15)
[2025-01-11] MEDS ORDERED: HYDROcodone-ACET 5/325MG TAB PO PRN (06:15)
[2025-01-11] MEDS ORDERED: ACETAMINOPHEN 325 MG TAB PO PRN (06:15)
[2025-01-11] MEDS ORDERED: NITROGLYCERIN 0.4 MG SL TAB SL PRN (06:15)
--- NOTE | 2025-01-11 06:15 | DVHHP2 ---
History of Present Illness Reason for Visit: Generalized weakness History of Present Illness The patient is a 19-year-old male with past medical history of autism, epilepsy, mesenteric adenitis, and ADHD who presented to [facility] ED for evaluation of generalized weakness. Mother reports that patient became very weak for about 10 minutes so she called 911. When EMS arrived on the scene, or viral signs were stable EN route to our facility ED. Mother states patient is compliance with all medications. Patient was seen and evaluated in the ED, laboratory data shows WBC 5.2, platelets 101, sodium 141, potassium 4.7, BUN 18, creatinine 1.00, GFR 110, glucose 107, calcium 9.7, lactic acid 3.8 trending down to 3.0, troponin three, blood pressure 100/54, heart rate 76, temperature 98.5 F, O2 saturation 94% on oxygen. Chest x-ray show no evidence of acute cardiopulmonary abnormality. Patient was given IV fluid lactated ringer bolus, please see medication orders section in the computer. On my assessment, mother at bedside, patient denied chest pain, no headache, dizziness, seizures activity, diaphoresis, currently on oxygen, no diarrhea, nausea, vomiting, fever, no chills. Patient was admitted for further evaluation and medical management. Past Medical History Autism, Epilepsy, Mesenteric adenitis, ADHD Past Surgical History Tonsillectomy Family History Reviewed, noncontributory to the management of this case. Past Social History The patient lives at home, denies smoking, alcohol or illicit drugs abuse. Review of Systems Constitutional: Yes: Weakness; No: Fever, Chills, Sweats, Malaise, Other Eyes: No: Pain, Vision change, Conjunctivae inflammation, Eyelid inflammation, Other, Redness ENT: No: Ear pain, Ear discharge, Nose pain, Nose discharge, Nose congestion, Mouth pain, Mouth swelling, Throat pain, Throat swelling, Other Respiratory: Shortness of breath; No: Cough, Dry, SOB with excertion, Wheezing, Hemoptysis, Pleuritic Pain, Sputum, Wheezing, Other Cardiovascular: No: Chest Pain, Palpitations, Orthopnea, Paroxysmal Noc. Dyspnea, Edema, Lt Headedness, Other Gastrointestinal: No: Nausea, Vomiting, Abdominal Pain, Diarrhea, Constipation, Melena, Hematochezia, Other Genitourinary: No Dysuria, No Frequency, No Incontinence, No Hematuria, No Retention, No Other Musculoskeletal: No: other, neck pain, shoulder pain, arm pain, back pain, hand pain, leg pain, foot pain Skin: No: Rash, Lesions, Jaundice, Bruising, Other Neurological: Seizures; No: Weakness, Numbness, Incoordination, Change in speech, Confusion, Other Allergies: Coded Allergies: Flu Virus Vaccine (Unverified Allergy, Severe, 07/02/23) Latex (Unverified Allergy, Severe, 07/02/23) Medications Current Medications Medications Dose Ordered Sig/Brett Route Start Time Stop Time Status Last Admin Dose Admin Lactated Ringer's 1,000 ml @ 100 mls/hr Q10H IV 01/11/25 06:15 Acetaminophen/ Hydrocodone Bitart 1 tab Q4HP PRN PO 01/11/25 06:15 Ondansetron HCl 4 mg Q4HP PRN IV 01/11/25 06:15 Docusate Sodium 100 mg BIDPRN PRN PO 01/11/25 06:15 Acetaminophen 650 mg Q6HP PRN PO 01/11/25 06:15 Nitroglycerin 0.4 mg Q5MINP PRN SL 01/11/25 06:15 Morphine Sulfate 2 mg Q30M PRN IV 01/11/25 06:15 Exam Vital Signs Vital Signs Date Time Temp Pulse Resp B/P (MAP) Pulse Ox O2 Delivery O2 Flow Rate FiO2 01/11/25 05:42 16 94 Room Air* 0 21 01/11/25 05:00 75 101/53 (69) 01/11/25 01:30 98.5 98.5 General Appearance: Alert, Oriented X3, Cooperative, No acute distress HEENT: Atraumatic, PERRLA, EOMI, Mucous membr. moist/pink Respiratory: Normal air movement Cardiovascular: Regular rate, Normal S1, Normal S2, No murmurs Abdominal: Normal bowel sounds, Soft, No tenderness, No hepatospenomegaly, No masses Extremities: No clubbing, No cyanosis, No edema, Normal pulses, No tenderness/swelling Skin: No rashes, No significant lesion Neuro: Normal speech, Normal tone, Sensation intact, Cranial nerves 3-12 NL, Reflexes 2+, Other (Generalized weakness) Psych/Mental Status: Mental status NL, Mood NL Labs/Xrays Labs Test 01/11/25 04:10 01/11/25 03:04 01/11/25 00:32 01/10/25 23:59 Range/Units Lactic Acid Level 3.3 *H 0.4-2.0 mmol/L Urine Color Light-yellow Yellow Urine Clarity Clear Clear Urine pH 6.0 5.0-9.0 Urine Specific [place] 1.023 1.001-1.035 Urine Protein Negative Negative Urine Ketones Trace Negative Urine Blood Negative Negative /uL Urine Nitrite Negative Negative Urine Bilirubin Negative Negative Urine Urobilinogen Normal Negative mg/dL Urine Leukocyte Esterase Negative Negative /uL Urine RBC 1 0 - 3 /hpf Urine Microscopic WBC 1 0-3 /HPF Urine Squamous Epithelial Cells None seen <5 /hpf Urine Bacteria None seen None Seen /hpf Urine Mucus Few None Seen Urine Glucose Normal Normal mg/dL Urine Opiates Screen Neg NEGATIVE Urine Fentanyl Screen Neg NEGATIVE Urine Barbiturates Screen Pos NEGATIVE Urine Phencyclidine Screen Neg NEGATIVE Urine Amphetamines Screen Neg NEGATIVE Urine Benzodiazepines Screen Neg NEGATIVE Urine Cocaine Screen Neg NEGATIVE Urine Cannabinoids Screen Neg NEGATIVE White Blood Count 5.2 4.4-10.8 10^3/uL Red Blood Count 4.76 4.5-5.90 10^6/uL Hemoglobin 14.3 13.5-17.5 g/dL Hematocrit 42.9 41.0-53.0 % Mean Corpuscular Volume 90.0 80.0-100.0 fL Mean Corpuscular Hemoglobin 30.0 28.0-32.0 pg Mean Corpuscular Hemoglobin Concent 33.3 32.0-36.0 g/dL Red Cell Distribution Width 13.6 11.8-14.3 % Platelet Count 101 L 140-450 10^3/uL Mean Platelet Volume 9.6 6.9-10.8 fL Neutrophils (%) (Auto) 39.5 37.0-80.0 % Lymphocytes (%) (Auto) 47.8 10.0-50.0 % Monocytes (%) (Auto) 8.9 0.0-12.0 % Eosinophils (%) (Auto) 3.1 0.0-7.0 % Basophils (%) (Auto) 0.7 0.0-2.0 % Neutrophils # (Auto) 2.0 1.6-8.6 10 ^3/uL Lymphocytes # (Auto) 2.5 0.4-5.4 10 ^3/uL Monocytes # (Auto) 0.5 0-1.3 10 ^3/uL Eosinophils # (Auto) 0.2 0-0.8 10 ^3/uL Basophils # (Auto) 0 0-0.2 10 ^3/uL Nucleated Red Blood Cells 0.0 % Troponin I High Sensitivity < 3 L </=54 ng/L Sodium Level 141 136-145 mmol/L Potassium Level 4.7 3.5-5.1 mmol/L Chloride Level 103 98-107 mmol/L Carbon Dioxide Level 24 20-31 mmol/L Anion Gap 14 5-15 Blood Urea Nitrogen 18 9-23 mg/dL Creatinine 1.00 0.700-1.30 mg/dL Glomerular Filtration Rate Calc 110 >90 mL/min BUN/Creatinine Ratio 18.0 10.0-20.0 Serum Glucose 107 H 74-106 mg/dL Calcium Level 9.7 8.7-10.4 mg/dL Magnesium Level 2.0 1.6-2.6 mg/dL Total Bilirubin 0.2 0.2-1.0 mg/dL Aspartate Amino Transferase (AST) 22 13-40 U/L Alanine Aminotransferase (ALT) 19 7-40 U/L Alkaline Phosphatase 74 46-116 U/L Total Protein 7.1 5.7-8.2 g/dL Albumin 4.7 3.2-4.8 g/dL PATIENT: ZACHERY AMBROSE JACCT: [id number] UNIT: [id number] : 2005 LOC: OVERFLOW ROOM / BED: [address] [place] [address] AGE / SEX: 19 / M ADM STATUS: ADM IN SERVICE 0601 ORDERING PHYSICIAN: TRACIE ABBASI DO PROCEDURE(s): CXRP - CHEST PORTABLE REASON: SOB ORDER NUMBER(s): [id number], ACCESSION NUMBER(s): [id number] CHEST RADIOGRAPH Indication: SOB Technique: Single frontal view of the chest was obtained COMPARISON: XY CHEST PORTABLE on DOS: 01/11/25, XY CHEST PORTABLE on DOS: 12/27/24, XY CHEST XRAY 1 VIEW on DOS: 12/09/24, XY CHEST XRAY 1 VIEW on DOS: 12/09/24, XY CHEST XRAY 1 VIEW on DOS: 12/08/24 FINDINGS: Lines and Tubes: None Lungs: Clear. Diminished lung volumes. Pleura: No effusion. No pneumothorax. Cardiomediastinal contours: Unremarkable Bones: Unremarkable IMPRESSION: 1. No radiographic evidence of acute cardiopulmonary abnormality. SEPSIS Sepsis Screen Date sepsis recognized/suspect: Jan 11, 2025 Time Sepsis recognized/suspect: 013 Recent Procedure: No On Antibiotic Therapy: No Respiratory Rate >20: No Heart Rate >90: No Temp<36 C (96.8 F) or >38.3 C: No SBP <90 or MAP <65 mmHG: No New Acute Mental Status Change: Yes Is the patient on CPAP, BIPAP,: No Physician Orders Bariatric Coordinator (01/10/25 ) Chest Portable (01/10/25 23:47) Electrocardigram (01/10/25 23:47) Lactic Acid W/ Reflex Order (01/11/25 05:13) Chest Portable (01/11/25 06:01) B-Type Natriuretic Peptide (01/11/25 06:01) Complete Blood Count (01/11/25 06:07) Comprehensive Metabolic Panel (01/11/25 06:07) Lactic Acid W/ Reflex Order (01/11/25 07:00) Lactated Ringer's (01/11/25 06:15) Lactated Ringer's (01/11/25 06:15) Creatine Kinase (01/11/25 06:07) Admit (01/11/25 06:09) Allergies (01/11/25 06:09) Code Status (01/11/25 06:09) Oxygen Per Hour (01/11/25 06:09) Hydrocodone-Acet 5/325mg Tab ([place] 5/32 (01/11/25 06:15) Ondansetron Hcl (Zofran) (01/11/25 06:15) Docusate Sodium Capsule (Colace Capsule) (01/11/25 06:15) Fall Risk Precautions In Place QSHIFT (01/11/25 06:09) Complete Blood Count (01/12/25 04:00) Comprehensive Metabolic Panel (01/12/25 04:00) Cardiac Diet-2gna,Lofat,Lochol (01/11/25 Breakfast) Condition: Serious (01/11/25 06:09) Acetaminophen Tablet (Tylenol Tablet) (01/11/25 06:15) Maintain Bed Rest (01/11/25 06:09) Sequential Compression Device (01/11/25 ) Nitroglycerin Sublingual (Ntrostat Subli (01/11/25 06:15) Morphine Sulfate Injection (01/11/25 06:15) Stat Ekg For Chest Pain (01/11/25 06:09) Notify Of Changes From Base (01/11/25 06:09) Mounter For 24 Hours (01/11/25 06:09) Emergency Dysrhythmia Protocol (01/11/25 06:09) Rhythm Strips Once Every Shift (01/11/25 06:09) Oxygen By Nasal Cannula (01/11/25 06:09) Ceftriaxone Ivpb Rocephin (01/11/25 09:00) Ceftriaxone Ivpb Rocephin (01/11/25 06:15) Vital Signs Date Time Temp Pulse Resp B/P (MAP) Pulse Ox O2 Delivery O2 Flow Rate FiO2 01/11/25 05:42 16 94 Room Air* 0 21 01/11/25 05:00 75 16 101/53 (69) 95 01/11/25 03:00 73 14 102/60 (74) 97 01/11/25 01:30 Room Air* 0 21 01/11/25 01:30 98.5 77 19 98/64 (75) 94 98.5 01/10/25 23:39 98.9 89 16 117/79 97 98.9 Laboratory Tests Test 01/11/25 00:32 01/11/25 02:32 01/11/25 04:10 Lactic Acid Level 2.9 mmol/L (0.4-2.0) *H 3.8 mmol/L (0.4-2.0) *H 3.3 mmol/L (0.4-2.0) *H White Blood Count 5.2 10^3/uL (4.4-10.8) Medications Medications Dose Ordered Sig/Brett Route Start Time Stop Time Status Last Admin Dose Admin Albuterol 2.5 mg ONCE ONCE NEB 01/11/25 05:30 01/11/25 05:34 DC 01/11/25 05:40 2.5 MG Sodium Chloride 1,000 ml @ 1,000 mls/hr Q1H ONCE IV 01/11/25 00:00 01/11/25 00:59 DC 01/11/25 01:35 1,000 MLS/HR Sodium Chloride 1,000 ml @ 1,000 mls/hr Q1H ONCE IV 01/11/25 01:45 01/11/25 02:52 DC 01/11/25 01:45 1,000 MLS/HR Sodium Chloride 1,000 ml @ 1,000 mls/hr Q1H ONCE IV 01/11/25 04:20 01/11/25 05:19 DC 01/11/25 04:46 1,000 MLS/HR Sodium Chloride 1,000 ml @ 1,000 mls/hr Q1H ONCE IV 01/11/25 05:15 01/11/25 06:14 DC 01/11/25 05:16 1,000 MLS/HR Assessment/Plan Assessment/Plan Generalized weakness Dehydration Elevated lactic acid level Seizure disorder Plan 1. Admit to telemetry unit 2. Breathing treatment 3. Pain control management 4. IV antibiotic management 5. Management of fluids and electrolytes 6. Consultation for Neurology/hospitalist 7. Diagnostic test chest x-ray 8. DVT prophylaxis on SCDs 9. Repeat labs CBC, CMP in a.m. 10. Home medication reviewed and reconciled 11. Continue with current medical management 12. Treatment plan discussed with patient and RN. Patient verbalized understanding. Plan discussed with: Patient, Other (RN) My Orders Orders - GLORIA BANKS DNP Procedure Category Date Status Time Complete Blood Count LAB 01/11/25 Logged 06:07 Comprehensive LAB 01/11/25 Logged Metabolic Panel 06:07 Lactic Acid W/ Reflex LAB 01/11/25 Logged Order 07:00 Lactated Ringer's PHA 01/11/25 In Process 06:15 Lactated Ringer's PHA 01/11/25 In Process 06:15 Creatine Kinase LAB 01/11/25 Logged 06:07 Admit ADMIT 01/11/25 Transmitted 06:09 Allergies JOSE 01/11/25 In Process 06:09 Code Status CODE 01/11/25 Transmitted 06:09 Oxygen Per Hour RT 01/11/25 Transmitted 06:09 Hydrocodone-Acet PHA 01/11/25 In Process 5/325mg Tab ([place] 06:15 Ondansetron Hcl PHA 01/11/25 In Process (Zofran) 06:15 Docusate Sodium PHA 01/11/25 In Process Capsule (Colace 06:15 Fall Risk Precautions JOSE 01/11/[address] 06:09 Complete Blood Count LAB 01/12/25 Verified 04:00 Comprehensive LAB 01/12/25 Verified Metabolic Panel 04:00 Cardiac DIET 01/11/25 Transmitted Diet-2gna,Lofat,Lochol Breakfast Condition: Serious [facility] 01/11/25 In Process 06:09 Acetaminophen Tablet [facility] 01/11/25 In Process (Tylenol Tablet) 06:15 Maintain Bed Rest [facility] 01/11/25 In Process 06:09 Sequential [facility] 01/11/25 In Process Compression Device Nitroglycerin [facility] 01/11/25 In Process Sublingual (Ntrostat 06:15 Morphine Sulfate [facility] 01/11/25 In Process Injection 06:15 Stat Ekg For Chest [facility] 01/11/25 In Process Pain 06:09 Notify Of Changes [facility] 01/11/25 In Process From Base 06:09 Mounter For [facility] 01/11/25 In Process 24 Hours 06:09 Emergency Dysrhythmia [facility] 01/11/25 In Process Protocol 06:09 Rhythm Strips Once [facility] 01/11/25 In Process Every Shift 06:09 Oxygen By Nasal RT 01/11/25 Transmitted Cannula 06:09 Ceftriaxone Ivpb [facility] 01/11/25 Verified Rocephin 09:00 Ceftriaxone Ivpb [facility] 01/11/25 Verified Rocephin 06:15 Problem List: (1) Generalized weakness (2) Dehydration (3) Elevated lactic acid level (4) Seizure disorder Date of Service: Jan 11, 2025 Billing Provider: GLORIA BANKS DNP Common Visit Codes: [id number] INP/OBS CARE (HIGH) GLORIA BANKS DNP Jan 11, 2025 06:15
[2025-01-11] MEDS ORDERED: LORazepam 2MG/ML-1ML VIAL IV PRN (06:30)
[2025-01-11 06:33] LABS: Hematocrit 40.8 % (41.0-53.0); Hemoglobin 13.3 g/dL (13.5-17.5); Mean Corpuscular Hemoglobin 29.7 pg (28.0-32.0); Mean Corpuscular Volume 90.9 fL (80.0-100.0); Nucleated Red Blood Cells % 0.2 %
--- NOTE | 2025-01-11 06:39 | DVH ---
CHEST RADIOGRAPH Indication: SOB Technique: Single frontal view of the chest was obtained COMPARISON: XY CHEST PORTABLE on DOS: 01/11/25, XY CHEST PORTABLE on DOS: 12/27/24, XY CHEST XRAY 1 VIEW on DOS: 12/09/24, XY CHEST XRAY 1 VIEW on DOS: 12/09/24, XY CHEST XRAY 1 VIEW on DOS: 12/08/24 FINDINGS: Lines and Tubes: None Lungs: Clear. Diminished lung volumes. Pleura: No effusion. No pneumothorax. Cardiomediastinal contours: Unremarkable Bones: Unremarkable IMPRESSION: 1. No radiographic evidence of acute cardiopulmonary abnormality.
[2025-01-11 07:05] LABS: Alanine Aminotransferase 15 U/L (7-40); Albumin 4.3 g/dL (3.2-4.8); Alkaline Phosphatase 62 U/L (46-116); Anion Gap 12 (5-15); BUN/Creatinine Ratio 16.7 (10.0-20.0); Blood Urea Nitrogen 14 mg/dL (9-23); Calcium 9.1 mg/dL (8.7-10.4); Carbon Dioxide 26 mmol/L (20-31); Glucose 88 mg/dL (74-106); Potassium 4.4 mmol/L (3.5-5.1); Total Protein 6.4 g/dL (5.7-8.2)
[2025-01-11 07:11] LABS: Bilirubin, Total 0.3 mg/dL (0.2-1.0); Chloride 108 mmol/L (98-107); Creatine Kinase IFCC 29 U/L (46-171); Sodium 146 mmol/L (136-145)
[2025-01-11 07:26] LABS: Lactic Acid w/Reflex 3.6 mmol/L (0.4-2.0)
[2025-01-11 07:36] VITALS: RESP 16
[2025-01-11] MEDS: LACTATED RINGER'S 1,000 ML IV SCH (07:53)
[2025-01-11] MEDS: LACTATED RINGER'S 1,000 ML IV ONE (07:53)
[2025-01-11 14:00] VITALS: BP 120/71; PULSE 78; RESP 18; TEMP 98; O2SAT 95
--- NOTE | 2025-01-11 14:10 | DVHDS2 ---
Discharge Summary Date of Admission Jan 11, 2025 at 06:09 Date of Discharge: Jan 11, 2025 Labs/Diagnostic Data: Laboratory Results Test 01/11/25 09:32 01/11/25 06:15 01/11/25 03:04 01/11/25 00:32 Lactic Acid Level 3.0 mmol/L (0.4-2.0) White Blood Count 4.6 10^3/uL (4.4-10.8) Red Blood Count 4.49 10^6/uL (4.5-5.90) Hemoglobin 13.3 g/dL (13.5-17.5) Hematocrit 40.8 % (41.0-53.0) Mean Corpuscular Volume 90.9 fL (80.0-100.0) Mean Corpuscular Hemoglobin 29.7 pg (28.0-32.0) Mean Corpuscular Hemoglobin Concent 32.7 g/dL (32.0-36.0) Red Cell Distribution Width 13.3 % (11.8-14.3) Platelet Count 86 10^3/uL (140-450) Mean Platelet Volume 10.2 fL (6.9-10.8) Neutrophils (%) (Auto) 41.4 % (37.0-80.0) Lymphocytes (%) (Auto) 47.7 % (10.0-50.0) Monocytes (%) (Auto) 7.6 % (0.0-12.0) Eosinophils (%) (Auto) 2.8 % (0.0-7.0) Basophils (%) (Auto) 0.5 % (0.0-2.0) Neutrophils # (Auto) 1.9 10 ^3/uL (1.6-8.6) Lymphocytes # (Auto) 2.2 10 ^3/uL (0.4-5.4) Monocytes # (Auto) 0.4 10 ^3/uL (0-1.3) Eosinophils # (Auto) 0.1 10 ^3/uL (0-0.8) Basophils # (Auto) 0 10 ^3/uL (0-0.2) Nucleated Red Blood Cells 0.2 % Sodium Level 146 mmol/L (136-145) Potassium Level 4.4 mmol/L (3.5-5.1) Chloride Level 108 mmol/L (98-107) Carbon Dioxide Level 26 mmol/L (20-31) Anion Gap 12 (5-15) Blood Urea Nitrogen 14 mg/dL (9-23) Creatinine 0.84 mg/dL (0.700-1.30) Glomerular Filtration Rate Calc 127 mL/min (>90) BUN/Creatinine Ratio 16.7 (10.0-20.0) Serum Glucose 88 mg/dL (74-106) Calcium Level 9.1 mg/dL (8.7-10.4) Total Bilirubin 0.3 mg/dL (0.2-1.0) Aspartate Amino Transferase (AST) 12 U/L (13-40) Alanine Aminotransferase (ALT) 15 U/L (7-40) Alkaline Phosphatase 62 U/L (46-116) Creatine Kinase 29 U/L (46-171) B-Type Natriuretic Peptide 6.87 pg/mL (0-100) Total Protein 6.4 g/dL (5.7-8.2) Albumin 4.3 g/dL (3.2-4.8) Urine Color Light-yellow (Yellow) Urine Clarity Clear (Clear) Urine pH 6.0 (5.0-9.0) Urine Specific [place] 1.023 (1.001-1.035) Urine Protein Negative (Negative) Urine Ketones Trace (Negative) Urine Blood Negative /uL (Negative) Urine Nitrite Negative (Negative) Urine Bilirubin Negative (Negative) Urine Urobilinogen Normal mg/dL (Negative) Urine Leukocyte Esterase Negative /uL (Negative) Urine RBC 1 /hpf (0 - 3) Urine Microscopic WBC 1 /HPF (0-3) Urine Squamous Epithelial Cells None seen /hpf (<5) Urine Bacteria None seen /hpf (None Seen) Urine Mucus Few (None Seen) Urine Glucose Normal mg/dL (Normal) Urine Opiates Screen Neg (NEGATIVE) Urine Fentanyl Screen Neg (NEGATIVE) Urine Barbiturates Screen Pos (NEGATIVE) Urine Phencyclidine Screen Neg (NEGATIVE) Urine Amphetamines Screen Neg (NEGATIVE) Urine Benzodiazepines Screen Neg (NEGATIVE) Urine Cocaine Screen Neg (NEGATIVE) Urine Cannabinoids Screen Neg (NEGATIVE) Troponin I High Sensitivity < 3 ng/L (</=54) Test 01/10/25 23:59 Magnesium Level 2.0 mg/dL (1.6-2.6) Other Laboratory Tests 01/11/25 06:15 Brief Hx & Hospital Course: 19-year-old male with a known history of partial complex seizure, ADHD, autism, who initially presented to the hospital with a generalized weakness pathology. Patient's mom at bedside. Patient currently fully awake alert. Patient denies any shortness a breath. Patient was eventually admitted for shortness of breaths with a suspected acute asthma exacerbation. Patient is currently on room air denies any shortness of breaths wheezing. Patient's mom at bedside who is requesting the patient to be discharged. Patient's lactic acid level was high but currently UA is negative chest x-ray negative in patient has no fever no white count. Patient's mom is copy machine operator whom I explained that in case he gets fevers chills shortness of breaths or any concern please bring him back to ER. Patient will be discharged under stable condition with a close follow up as an outpatient with the PCP with a repeat lactic acid level to make sure is resolved. Condition at Discharge: Stable Final Diagnosis/Problems List 1. Acute metabolic encephalopathy currently at baseline as per mom who is requesting discharge orders. 2. Partial complex seizure 3. ADHD 4. Chronic asthma currently not in exacerbation Discharge Disposition: Home SNF Discharge Will this Physician continue t: No Discharge Instruct/Medications Diet: Cardiac 2g Na,low cholest Activity: No Restrictions, As Tolerated Follow Up/Referral: Please follow up with the PCP with a less than one week with a repeat lactic acid level. Medications: Resume home medications. Scheduled Cenobamate (Xcopri), 50 MG PO DAILY, (Reported) Cenobamate (Xcopri), 200 MG PO HS, (Reported) Cephalexin Monohydrate (Cephalexin), 1 CAP PO QID Cholecalciferol (Vitamin D3), 1 TAB PO DAILY, (Reported) Clonidine Hydrochloride (Clonidine Hcl), 0.2 MG PO HS, (Reported) Loratadine (Claritin), 1 TAB PO DAILY, (Reported) Magnesium Oxide (Magnesium Oxide), 1 TAB PO HS, (Reported) Scheduled PRN Albuterol Sulfate (Albuterol Sulfate Hfa), 108 MCG IN Q4HP PRN Ondansetron Odt 4MG Tab (Zofran Po), 4 MG PO Q12HP PRN Discharge Statement: "Patient was advised to return to the ER or call 911 if any headaches, dizziness, shortness of breath, chest pain, abdominal pain, bleeding, fevers, or worsening of medical condition. Patient was counseled about treatment plan, medications, possible side effects, patientverbalized understanding. All questions were answered to the best of my ability. This discharge took greater then 30 minutes in planning, reviewing documentation, counseling the patient, and discussing with other team members." ASSESSMENT ASSESSMENT Assessment 1. Acute metabolic encephalopathy currently at baseline as per mom who is requesting discharge orders. 2. Partial complex seizure 3. ADHD 4. Chronic asthma currently not in exacerbation Date of Service: Jan 11, 2025 Billing Provider: JUANITA MONROE MD Common Visit Codes: [id number]/OBS DISCH DAY >30min JUANITA MONROE MD Jan 11, 2025 14:10
== END 2025-01-11 14:11 | disposition home or self-care (01) | DRG 53 ==
LOC: EDBD 23:39 → ER 23:39 → OVERFLOW 01-11 06:09
PROVIDERS: ADMIT Nurse Practitioner Family; ATTEND Nurse Practitioner Family
DX: G40.209 Localization-related (focal) (partial) symptomatic epilepsy and epileptic syndromes with complex partial seizures, not intractable, without status epilepticus (principal); E87.20 Acidosis, unspecified; J45.901 Unspecified asthma with (acute) exacerbation; F90.9 Attention-deficit hyperactivity disorder, unspecified type; F84.0 Autistic disorder; E86.0 Dehydration; Z88.7 Allergy status to serum and vaccine; Z91.040 Latex allergy status
CPT/HCPCS: 36415; 71045; 80053; 80307; 81001; 82550; 83605; 83735; 83880; 84484; 85025; 86850; 86900; 86901; 94640; 96361; 96365; G0378